=== PATIENT | male | born 1995 | race Caucasian/White ===

== ENCOUNTER 2022-11-08 15:56 | Emergency (ER) | payer BC, SELFPAY ==
[2022-11-08 16:00] VITALS: BP 112/70; PULSE 80; RESP 22; TEMP 37.1; O2SAT 97; BMI 27.3
--- NOTE | 2022-11-08 16:25 | ED.GENADULT ---
HPI - General Adult General Chief complaint: Back Injury/Pain Stated complaint: Severe left shoulder blade/neck pain, arm numbness Time Seen by Provider: 11/08/22 16:14 History of Present Illness HPI narrative: Pt c/o pinched nerve in left shoulder blade that radiates to neck and left arm that started one week ago. Pt states it has gotten progressively worse, and is now spasming today. Pt states he has numbness in left arm and fingers 27-year-old man presenting to the emergency department with complaint of a pinched nerve that he thinks is coming out of his shoulder blade maybe going to his neck and now he is having some numbness in his left arm and fingers. Appears to be spasming. Has been going on for about a week. Much worse in spasms today. No particular injury noted. No rash or redness. Significant other has been trying some massage. No actual weakness. No neurological disorders. Related Data Home Medications Medication Instructions Recorded Confirmed esomeprazole magnesium 40 mg 40 mg PO DAILY 11/08/22 11/08/22 capsule,delayed release famotidine 40 mg tablet 40 mg PO DAILY 11/08/22 11/08/22 fluticasone propionate 50 2 spray intranasal DAILY 11/08/22 11/08/22 mcg/actuation nasal spray,suspension lisdexamfetamine 20 mg capsule 20 mg PO DAILY 11/08/22 11/08/22 (Vyvanse) sumatriptan succinate 50 mg tablet 50 mg PO PRN 11/08/22 11/08/22 Allergies Allergy/AdvReac Type Severity Reaction Status Date / Time Sulfa (Sulfonamide Allergy Unknown Verified 11/08/22 16:07 Antibiotics) sulfamethoxazole Allergy Unknown Verified 11/08/22 16:07 [From Bactrim] trimethoprim [From Bactrim] Allergy Unknown Verified 11/08/22 16:07 Review of Systems Status of ROS: Reports: 6 or more systems reviewed and unremarkable except as noted in History and below [facility] Social History Smoking Status: Current every day smoker What tobacco products do you use: cigarettes Smoking packs per day: 0.5 Smoking cigarettes per day: 10.0 Years smoked: 10 Smoking pack-years: 5.00 Do you use any of these nicotine containing products: None Second hand tobacco smoke exposure: No How often do you have a drink containing alcohol: never AUDIT-C Alcohol total score: 0 Non-prescribed substance use: marijuana (any form) service: No Exam Narrative: Exam Narrative: Is pleasant. Clearly uncomfortable. Limited rotation of the neck actual to the right causes some discomfort in the left. Is very tense in the trapezial and periscapular musculature. no weakness. subjective tingliness. no sensory loss exactly. Well-perfused peripherally. No midline back or neck tenderness. Const: Vital Signs, click to edit/add: Vital Signs - 24 hr 11/08/22 16:00 Temperature 98.7 F Pulse Rate [Pulse Oximeter] 80 Respiratory Rate 22 Blood Pressure [Ri ght Upper Arm] 112/70 Pulse Oximetry 97 Oxygen Delivery Me thod Room Air Documenting provider has reviewed patient's vital signs: yes Course Vital Signs Vital signs: Initial Vital Signs Temperature 98.7 F 11/08/22 16:00 Temperature Source Temporal Artery Scan 11/08/22 16:00 Pulse Rate 80 11/08/22 16:00 Respiratory Rate 22 11/08/22 16:00 Blood Pressure 112/70 11/08/22 16:00 Blood Pressure Mean 84 11/08/22 16:00 Blood Pressure Position Sitting 11/08/22 16:00 Pulse Oximetry 97 11/08/22 16:00 Oxygen Delivery Method Room Air 11/08/22 16:00 Vital Signs Temperature 98.7 F 11/08/22 16:00 Pulse Rate 80 11/08/22 16:00 Respiratory Rate 22 11/08/22 16:00 Blood Pressure 112/70 11/08/22 16:00 Pulse Oximetry 97 11/08/22 16:00 Oxygen Delivery Method Room Air 11/08/22 16:00 Temperature 98.7 F 11/08/22 16:00 Pulse Rate 74 11/08/22 18:37 Respiratory Rate 22 11/08/22 16:00 Blood Pressure 129/81 11/08/22 18:37 Pulse Oximetry 98 11/08/22 18:37 Oxygen Delivery Method Room Air 11/08/22 18:37 Medical Decision Making MDM Narrative Medical decision making narrative: Due to degree of discomfort or will give 2 tabs of [place] in the emergency department. Was also given ibuprofen and prednisone the latter due to what may be a radicular issue from cervical spine. Possible facet inflammation/jumped facet, muscle spasm. No MRI availability at this time. Furthermore appropriate for outpatient I think. I did order a xray of the cervical spine looking for potential spurs or other osteoarthritic disease possibly secondary affect of mass that might be causing some of the symptoms. I did review these images. Radiology over-read as below Findings: Lateral view extends from the skull-base to C7. Odontoid view is suboptimal. No acute fracture or traumatic subluxation of the cervical spine. Vertebral body height and disc spaces are maintained. Normal alignment. No soft tissue swelling. Soft tissue heterogeneity in the neck on AP view is likely external to the patient. Visualized lung apices are clear. Impression: No acute fracture or traumatic subluxation of the cervical spine. On reassessment is overall improved. This may have been jumped/inflamed facet as well resulting in muscle spasm. The radicular symptoms are a little unusual generating concern of foraminal issue. And physical exam is a little different than typical where 1 might expect rotational movement to the same side to be markedly painful and limited in facet issue; somewhat contrary to findings here today. See patient discharge plan Discharge Plan Discharge Clinical Impression: Radiculopathy of arm, Cervicalgia Patient Disposition: Home w/ Parent or Adult Condition: Improved Additional Instructions: Stay well-hydrated. Can take up to 800 mg of ibuprofen or alternatively that might be up to 500 mg of naproxen 2 times daily. Both probably take with a little bit of food given your history. Can also take up to 1000 mg of acetaminophen which may be combined with either of the prior 2. Take the prednisone as 60 mg daily for 2 days then 40 mg daily for 4 days then 20 mg daily for 3 days. Prednisone, Percocet (as we are out of [place]), cyclobenzaprine from [facility]. Please call to schedule with primary care provider for follow-up sometime between 1-[address] now[address] Dr. Alberto does do injections if needed. Prescriptions: No Action Vyvanse 20 mg capsule 20 mg PO DAILY famotidine 40 mg tablet 40 mg PO DAILY esomeprazole magnesium 40 mg capsule,delayed release(DR/EC) 40 mg PO DAILY sumatriptan succinate 50 mg tablet 50 mg PO PRN fluticasone propionate 50 mcg/actuation spray,suspension 2 spray INTRANASAL DAILY Follow Up/Referrals: Provider,Not a Local [Primary Care Provider] - Stand Alone Forms: MyHealth Info Instructions
--- NOTE | 2022-11-08 16:49 | CRLHL7_ITS ---
For Patients: As a result of the Century Cures Act, medical imaging exams and procedure reports are released immediately into your electronic medical record. You may view this report before your referring provider. If you have questions, please contact your health care provider. Indication: Left arm radicular pain Technique: Three views of the cervical spine Comparison: None Findings: Lateral view extends from the skull-base to C7. Odontoid view is suboptimal. No acute fracture or traumatic subluxation of the cervical spine. Vertebral body height and disc spaces are maintained. Normal alignment. No soft tissue swelling. Soft tissue heterogeneity in the neck on AP view is likely external to the patient. Visualized lung apices are clear. Impression: No acute fracture or traumatic subluxation of the cervical spine. Dictated by João Roblero MD @ 11/08/2022 5:50:26 PM (Electronically Signed)
[2022-11-08] MEDS: HYDROCODONE-ACETAMIN 5-325 MG 1 TAB 2 TAB PO (17:04)
[2022-11-08] MEDS: IBUPROFEN 200 MG TABLET 600 MG PO (17:04)
[2022-11-08] MEDS: predniSONE 20 MG TABLET 80 MG PO (17:05)
[2022-11-08 18:37] VITALS: BP 129/81; PULSE 74; O2SAT 98
== END 2022-11-08 18:38 | disposition home or self-care (01) ==
PROVIDERS: Emergency Provider Family Medicine
DX: M54.12 Radiculopathy, cervical region (principal)
CPT/HCPCS: 72040; 99283; 99284; A9270; J7512

== ENCOUNTER 2022-12-12 10:49 | Emergency (ER) | payer BC, SELFPAY ==
[2022-12-12 10:54] VITALS: BP 123/82; PULSE 69; RESP 18; TEMP 36.2; O2SAT 96; BMI 26.5
--- NOTE | 2022-12-12 11:16 | CRLHL7_ITS ---
For Patients: As a result of the Century Cures Act, medical imaging exams and procedure reports are released immediately into your electronic medical record. You may view this report before your referring provider. If you have questions, please contact your health care provider. INDICATION: Headache. Trauma. TECHNIQUE: Non-contrast CT of the head is submitted. No comparisons. FINDINGS: The ventricles, sulci and gyri are of normal size, shape and contour. Midline structures are centrally located. No convincing evidence of intra- or extra-axial fluid collections. IMPRESSION: 1. No radiographic evidence of acute intracranial abnormalities. Dictated by Juwan Lacy MD @ 12/12/2022 12:38:48 PM Please note that all CT scans at this facility use dose modulation, iterative reconstruction, and/or weight-based dosing when appropriate to reduce radiation dose to as low as reasonably achievable. Dictated by: Juwan Lacy MD @ 12/12/2022 12:38:57 (Electronically Signed)
--- NOTE | 2022-12-12 11:17 | ED_ITS ---
HPI - General Adult General Time Seen by Provider: 11:17 Date Seen: 12/12/22 Chief complaint: Nausea/Vomiting Stated complaint: vomiting,cold sweats, loc hit head Time Seen by Provider: 12/12/22 11:15 Source: patient Mode of arrival: ambulatory Limitations: no limitations History of Present Illness HPI narrative: Patient is a 21-year-old male with no pertinent medical problems presenting to the emergency department for nausea and vomiting. About 3 hours ago started developing periumbilical pain with nausea and vomiting. He states he has been vomiting every 10 minutes. These also having sharp pain in his abdominal region. He has noted no previous abdominal surgeries. No have been other sick person in the also old who was also vomiting yesterday. Patient has not had any fevers but admits to chills. Last bowel movement was 2 today and was normal. Has not been the to drink anything when he tries he vomits it back up. His exam the calcium was vomiting caused him to pass out and fell off the couch landing on the hardwood for any his head. Denies a headache at this time. He does states he feels little lightheaded and dehydrated. Patient is an active marijuana user and says he smokes 1 to 2 times a day for the past several years. Denies chest pain, shortness of breath, numbness, weakness, dysuria, constipation, diarrhea. Related Data Home Medications Medication Instructions Recorded Confirmed esomeprazole magnesium 40 mg 40 mg PO DAILY 11/08/22 12/12/22 capsule,delayed release famotidine 40 mg tablet 40 mg PO DAILY 11/08/22 12/12/22 fluticasone propionate 50 2 spray intranasal DAILY 11/08/22 12/12/22 mcg/actuation nasal spray,suspension lisdexamfetamine 20 mg capsule 20 mg PO DAILY 11/08/22 12/12/22 (Vyvanse) sumatriptan succinate 50 mg tablet 50 mg PO PRN 11/08/22 11/08/22 Previous Rx's Medication Instructions Recorded ondansetron 4 mg disintegrating 4 mg PO Q6H #20 tabs 12/12/22 tablet Allergies Allergy/AdvReac Type Severity Reaction Status Date / Time Sulfa (Sulfonamide Allergy Unknown Verified 12/12/22 10:57 Antibiotics) sulfamethoxazole Allergy Unknown Verified 11/08/22 16:07 [From Bactrim] trimethoprim [From Bactrim] Allergy Unknown Verified 11/08/22 16:07 Review of Systems Status of ROS: Reports: 10 or more systems reviewed and unremarkable except as noted in History and below [facility] Social History Smoking Status: Current every day smoker What tobacco products do you use: cigarettes Smoking packs per day: 0.5 Smoking cigarettes per day: 10.0 Years smoked: 10 Smoking pack-years: 5.00 Do you use any of these nicotine containing products: None Second hand tobacco smoke exposure: No How often do you have a drink containing alcohol: never AUDIT-C Alcohol total score: 0 Non-prescribed substance use: marijuana (any form) service: No Exam Narrative: Exam Narrative: Const: Well-nourished, Well-developed, in moderate distress Eyes: PERRL, no conjunctival injection, and symmetrical lids ENMT: Atraumatic external nose and ears. Moist mucous membranes. Neck: Symmetric, trachea midline, No thyromegaly. CVS: RRR, No murmurs or gallops. Peripheral pulses 2+ and equal in all extremities RESP: Unlabored respiratory effort. Clear to auscultation bilaterally. GI: Diffuse abdominal tenderness, Nondistended, No rebound or guarding. MSK:Extremities w/o deformity, Normal Active ROM Skin: Warm, Dry. No rashes or lesions. Neuro: Normal Muscle tone, No focal neurological deficits. Psych: Awake, Alert, & Oriented x3. Appropriate mood and affect. Const: Vital Signs, click to edit/add: Vital Signs - 24 hr 12/12/22 10:54 Temperature 97.2 F L Pulse Rate [Right Pulse Oximeter] 69 Respiratory Rate 18 Blood Pressure [Ri ght Upper Arm] 123/82 Pulse Oximetry 96 Oxygen Delivery Me thod Room Air Course Vital Signs Vital signs: Initial Vital Signs Temperature 97.2 F L 12/12/22 10:54 Temperature Source Temporal Artery Scan 12/12/22 10:54 Pulse Rate 69 12/12/22 10:54 Respiratory Rate 18 12/12/22 10:54 Blood Pressure 123/82 12/12/22 10:54 Blood Pressure Mean 95 12/12/22 10:54 Blood Pressure Position Sitting 12/12/22 10:54 Pulse Oximetry 96 12/12/22 10:54 Oxygen Delivery Method Room Air 12/12/22 10:54 Vital Signs Temperature 97.2 F L 12/12/22 10:54 Pulse Rate 69 12/12/22 10:54 Respiratory Rate 18 12/12/22 10:54 Blood Pressure 123/82 12/12/22 10:54 Pulse Oximetry 96 12/12/22 10:54 Oxygen Delivery Method Room Air 12/12/22 10:54 Temperature 97.2 F L 12/12/22 10:54 Pulse Rate 69 12/12/22 10:54 Respiratory Rate 18 12/12/22 10:54 Blood Pressure 123/82 12/12/22 10:54 Pulse Oximetry 96 12/12/22 10:54 Oxygen Delivery Method Room Air 12/12/22 10:54 Medical Decision Making MDM Narrative Medical decision making narrative: Patient is an 7-year-old male presented emergency department for nausea and vomiting. Symptoms going on for past 3 hours and gradually worse. Has not been any to drink due to nausea. Is a current marijuana user. Does state the vomiting causing the past solid was then his onsite health coach surgeon folic of thick cotton hitting his head on the hardwood floor. Consider symptoms were cbc, CMP, lipase, EKG, troponin. Toradol given for pain and Zofran for nausea. 1 L of normal saline was ordered. Also checking for cholecystitis flu/RSV. Since he is had will order CT head noncontrast in this abdominal pain CT abdomen and pelvis with contrast. Lipase was ordered for care of the reagent is on back order an echo take a few days for the results to come back. There is also another reason why we ordered CT scan as we have no other great way to rule out pancreatitis at this time. Patient's symptoms do not improve with the Zofran. After he was given Haldol his nausea did improve he is not able to rest in bed. States symptoms are not completely gone. Troponin EKG showed no concerning findings. We did do a CT scan which showed no concerning abnormalities. Cbc and CMP showed no concerning abnormalities. COVID/flu/RSV is negative. Lipase is still pending at this time will take a few days to come back. CT scan did not show any signs of pancreatitis. Also unlikely to be cholecystitis. No signs of a small-bowel obstruction. Head CTs showed no concerning abnormalities. Continue Zosyn I sick family members at home patient likely has a viral infection which might have exacerbated his cannabinoid hyperemesis syndrome. He has never had issues with hyperemesis but he states he is aware of it. He did not smoke today but considering the Haldol did help with his nausea I believe there might be at least some association right now. He will be discharged home with Zofran. He is agreeable to this plan Lab Data Labs: Lab Results 12/12/22 12/12/22 Range/Units 11:40 Unknown WBC 4.29 L (4.50-11.00) K/uL RBC 4.91 (4.30-5.90) m/uL Hgb 14.6 (13.5-17.5) gm/dL Hct 43.3 (37.0-53.0) % MCV 88 (80-100) fL MCH 30 (26-34) pg MCHC 34 (32-36) gm/dL RDW Coeff of Lo 12.4 (11.5-15.5) % Plt Count 187 (140-440) K/uL Neut % (Auto) 49.1 (42.0-72.0) % Lymph % (Auto) 37.3 (20-44) % Mccone % (Auto) 11.7 H (0.0-11.0) % Eos % (Auto) 1.2 (0.0-7.0) % Baso % (Auto) 0.5 (0.0-3.0) % Neut # (Auto) 2.10 (1.7-7.0) K/uL Lymph # (Auto) 1.60 (0.90-2.90) K/uL Mccone # (Auto) 0.50 (0.00-0.90) K/UL Eos # (Auto) 0.10 (0.00-0.50) K/uL Baso # (Auto) 0.00 (0.00-0.30) K/uL Abs Immat Gran (auto) 0.00 (0.00-0.30) K/uL Imm/Tot Granulo (auto) 0.2 % Sodium 142 (135-149) mmol/L Potassium 3.8 (3.6-5.1) mmol/L Chloride 105 (96-114) mmol/L Carbon Dioxide 28 (20-32) mmol/L Anion Gap 9 (7-15) mEq/L BUN 20 (5-24) mg/dL Creatinine 0.9 (0.5-1.5) mg/dL Estimated Creat Clear 126.17 Estimated GFR 119 ml/min Glucose 121 H (60-115) mg/dL Calcium 10.0 (8.4-10.6) mg/dL Total Bilirubin 0.6 (0.1-1.5) mg/dL AST 30 (12-35) U/L ALT 36 (4-50) U/L Alkaline Phosphatase 73 (40-150) U/L Troponin I < 0.01 L (0.01-0.04) ng/mL Total Protein 7.3 (6.0-8.3) g/dL Albumin 4.5 (3.3-5.0) g/dL Urine Color Yellow (Yellow) Urine Appearance Cloudy A (Clear) Urine pH 8.5 (5.0-8.5) Ur Specific Deposit 1.020 (1.000-1.030) Urine Protein Trace A (Negative) Urine Glucose (UA) Negative (Negative) Urine Ketones 1+ A (Negative) Urine Blood Negative (Negative) Urine Nitrite Negative (Negative) Urine Bilirubin Negative (Negative) Urine Urobilinogen 0.2 (0.2-1.0) Ur Leukocyte Esterase Negative (Negative) Urine RBC 0-2 (0-2) Urine WBC 0-2 (0-5) Ur Squamous Epith Cells Few (None-Few) Amorphous Sediment Many A (None) Urine Bacteria None (None) SARS-CoV-2 (PCR) Negative SARS-CoV-2 (Negative) Influenza Type A (PCR) Negative PCR FLU A (Negative) Influenza Type B (PCR) Negative PCR FLU B (Negative) RSV (PCR) Negative PCR RSV (Negative) Imaging Data CT scan - abdomen: Radiologist's impression: INDICATION: Periumbilical pain. TECHNIQUE: Volumetric helical scanning of the abdomen and pelvis was performed with 89 cc of Isovue 370 contrast material IV. Coronal and sagittal reconstructions were obtained. COMPARISON: None. FINDINGS: There is no evidence of bowel obstruction or inflammation. A normal appendix noted. A small hiatal hernia is noted. The liver is normal in size, shape and attenuation. The bile ducts are within normal limits. The spleen, adrenal glands and pancreas are negative. In the left renal collecting system are stones measuring up to 7 mm and 2 mm. Right renal collecting system stones measuring up to 5 mm and 2 mm are also noted. Small low-attenuation parenchymal lesions of both kidneys are demonstrated tender consistent with cysts. No lymphadenopathy is evident. No free fluid is demonstrated. A small fat-containing umbilical hernia is noted. The prolapsed fat is normal in appearance. The prostate is negative. The lung bases are essentially clear, and heart size is normal. IMPRESSION: 1. Bowel unremarkable except for small hiatal hernia. 2. Small fat-containing umbilical hernia without evidence of inflammation. 3. Renal collecting system stones and small renal parenchymal cysts bilaterally. Please note that all CT scans at this facility use dose modulation, iterative reconstruction, and/or weight-based dosing when appropriate to reduce radiation dose to as low as reasonably achievable. Dictated by Heber Chavira MD @ 12/12/2022 12:59:[address] scan - head: Radiologist's impression: INDICATION: Headache. Trauma. TECHNIQUE: Non-contrast CT of the head is submitted. No comparisons. FINDINGS: The ventricles, sulci and gyri are of normal size, shape and contour. Midline structures are centrally located. No convincing evidence of intra- or extra-axial fluid collections. IMPRESSION: 1. No radiographic evidence of acute intracranial abnormalities. Dictated by Juwan Lacy MD @ 12/12/2022 12:38:48 PM Please note that all CT scans at this facility use dose modulation, iterative reconstruction, and/or weight-based dosing when appropriate to reduce radiation dose to as low as reasonably achievable. Dictated by: Juwan Lacy MD @ 12/12/2022 12:38:57 ECG Data Attestation: I personally reviewed and interpreted this ECG as follows: Prior ECG tracings: not available for review Interpretation: Sinus bradycardia rate 56 beats per minute, normal intervals, normal axis, no ST or T-wave abnormalities. Discharge Plan Discharge Clinical Impression: Viral gastritis Patient Disposition: Home, Self-Care Condition: Improved Instructions: Gastritis (DC) Additional Instructions: Follow-up with the primary care provider. Take Tylenol ibuprofen for abdominal pain. Use the Zofran as directed for nausea. I believe you have a viral gastritis. I believe that along with your marijuana use might be what is causing your nausea and vomiting. One of the reasons I believe this is because the 2nd medication gave you is used for cannabinoid hyperemesis syndrome and it did the best improving her symptoms. I recommend you hold off on using marijuana until viral symptoms passed. Activity Level: No Restrictions Discharge Diet: Regular Prescriptions: New ondansetron 4 mg tablet,disintegrating 4 mg PO Q6H Qty: 20 0RF No Action Vyvanse 20 mg capsule 20 mg PO DAILY famotidine 40 mg tablet 40 mg PO DAILY esomeprazole magnesium 40 mg capsule,delayed release(DR/EC) 40 mg PO DAILY sumatriptan succinate 50 mg tablet 50 mg PO PRN fluticasone propionate 50 mcg/actuation spray,suspension 2 spray INTRANASAL DAILY Follow Up/Referrals: Provider,Not a Local [Primary Care Provider] - Stand Alone Forms: [employer] Info Instructions
[2022-12-12] MEDS: KETOROLAC 15 MG/ML inj IVP (11:55)
[2022-12-12] MEDS: ONDANSETRON 2 MG/ML inj 4 MG IVP (11:56)
[2022-12-12] MEDS: LACTATED RINGERS 1000 ML 1,000 ML IV (11:56)
[2022-12-12 12:00] LABS: Basophils Percent Auto 0.5 % (0.0-3.0); Eosinophils Percent Auto 1.2 % (0.0-7.0); Hematocrit 43.3 % (37.0-53.0); Hemoglobin* 14.6 gm/dL (13.5-17.5); Immature Granulocytes Pct Auto 0.2 %; Lymphocytes Percent Auto 37.3 % (20-44); Mean Corpuscular HGB Conc 34 gm/dL (32-36); Mean Corpuscular Hemoglobin 30 pg (26-34); Mean Corpuscular Volume 88 fL (80-100); Monocytes Percent Auto 11.7 % (0.0-11.0); Neutrophils Percent Auto 49.1 % (42.0-72.0); Platelet Count* 187 K/uL (140-440); RDW Coefficient of Variation % 12.4 % (11.5-15.5); Red Blood Count 4.91 m/uL (4.30-5.90); White Blood Count* 4.29 K/uL (4.50-11.00)
[2022-12-12 12:04] LABS: Slide Review Reflex No
[2022-12-12 12:14] LABS: Albumin* 4.5 g/dL (3.3-5.0); Chloride* 105 mmol/L (96-114)
[2022-12-12 12:15] LABS: Potassium* 3.8 mmol/L (3.6-5.1); Sodium* 142 mmol/L (135-149)
[2022-12-12 12:17] LABS: Alkaline Phosphatase* 73 U/L (40-150); Anion Gap 9 mEq/L (7-15); Aspartate Amino Transferase* 30 U/L (12-35); Bilirubin Total* 0.6 mg/dL (0.1-1.5); Blood Urea Nitrogen* 20 mg/dL (5-24); Carbon Dioxide* 28 mmol/L (20-32); Creatinine* 0.9 mg/dL (0.5-1.5); Est. Creatinine Clearance* 126.17; Estimated Glomerular Filt Rate 119 ml/min; Total Protein* 7.3 g/dL (6.0-8.3)
[2022-12-12 12:18] LABS: Alanine Aminotransferase* 36 U/L (4-50); Glucose* 121 mg/dL (60-115)
[2022-12-12 12:32] LABS: Troponin I* < 0.01 ng/mL (0.01-0.04)
[2022-12-12 12:36] LABS: PCR FLU A Negative PCR FLU A (Negative); PCR FLU B Negative PCR FLU B (Negative); PCR RSV Negative PCR RSV (Negative)
[2022-12-12 12:38] LABS: SARS PCR* Negative SARS-CoV-2 (Negative)
[2022-12-12] MEDS: HALOPERIDOL 5 MG/ML INJ IV (12:51)
[2022-12-12 13:37] LABS: Appearance Urine Cloudy (Clear); Bilirubin Urine Negative (Negative); Blood Urine Negative (Negative); Color Urine Yellow (Yellow); Glucose Urine Negative (Negative); Ketones Urine 1+ (Negative); Leukocyte Esterase Urine Negative (Negative); Nitrite Urine Negative (Negative); Protein Urine Trace (Negative); Urobilinogen Urine 0.2 (0.2-1.0); pH Urine 8.5 (5.0-8.5)
[2022-12-12 13:48] LABS: Amorphous Sediment Urine Many; RBC Urine 0-2 (0-2); Squamous Epithelial Cell Urine Few (None-Few); WBC Urine 0-2 (0-5)
[2022-12-15 10:47] LABS: Lipase* 32 U/L (23-300)
== END 2022-12-12 15:01 | disposition home or self-care (01) ==
PROVIDERS: Emergency Provider Student in an Organized Health Care Education/Training Program
DX: A08.4 Viral intestinal infection, unspecified (principal)
CPT/HCPCS: 36415; 70450; 74177; 80053; 81003; 81015; 83690; 84484; 85025; 87631; 93005; 96374; 96375; 99283; 99284; 99285; J1630; J1885; J2405; J7120; Q9967

== ENCOUNTER 2023-07-30 18:20 | Emergency (ER) | payer OTHER, SELFPAY ==
[2023-07-30 18:25] VITALS: BP 116/82; PULSE 63; RESP 16; TEMP 36.4; O2SAT 96; BMI 25.8
--- NOTE | 2023-07-30 18:33 | ED.GENADULT ---
HPI - General Adult General Chief complaint: Abdominal Pain Stated complaint: abdominal pain, vomiting, weak Time Seen by Provider: 07/30/23 18:31 History of Present Illness HPI narrative: Patient presents to the emergency department complaining of nausea and vomiting which he believes to be related to his abdominal pain. Patient states he feels full and it gets worse with a deep breath. 27-year-old man presenting to the emergency department with complaint of cramping periumbilical abdominal pain beginning around 8 hours ago prior to eating and then subsequent repeated bouts of nausea. He notes that there has been some darker red blood in his vomitus. He notes a history of a stomach ulcer and a history of hiatal hernia and Simpson's esophagus last scoped he thinks 1-2 years ago. Has been on omeprazole and famotidine for quite some time. He has not had a fever. He says his stools are chronically dark. Pain is worse when he takes a deep breath. Abdomen feels ?full?. No fever. Family who accompanies him here today expresses concern over potential gallbladder or appendicitis. Mr. Salmon has been evaluated in this emergency department with vomiting and abdominal pain in the past with abdominal CT imaging showing renal stones. He does not complain of flank pain at this time no dizzy have any hematuria. No dysuria or frequency or urgency. No fever. Had typical bowel movement this morning. Does endorse that has been experiencing more anxiety lately particularly this past week. Has been treating with hydroxyzine. Is now out of his most effective antiemetic, Reglan, over the last week. He does admit to smoking marijuana 3 days ago; says that he has been tapering. Related Data Home Medications Medication Instructions Recorded Confirmed esomeprazole magnesium 40 mg 40 mg PO DAILY 11/08/22 12/15/22 capsule,delayed release famotidine 40 mg tablet 40 mg PO DAILY 11/08/22 12/15/22 lisdexamfetamine 20 mg capsule 20 mg PO DAILY 11/08/22 12/15/22 (Vyvanse) sumatriptan succinate 50 mg tablet 50 mg PO PRN 11/08/22 12/15/22 prochlorperazine maleate 10 mg 10 mg PO Q6H 12/15/22 12/15/22 tablet hydroxyzine HCl 25 mg tablet 25 mg PO BID PRN 06/01/23 06/01/23 hydroxyzine HCl 50 mg tablet mg PO 06/01/23 06/01/23 sertraline 100 mg tablet 100 mg PO DAILY 06/01/23 06/01/23 trazodone 50 mg tablet 100 mg PO QPM PRN 06/01/23 06/01/23 valacyclovir 500 mg tablet 500 mg PO QDAY 06/01/23 06/01/23 (Valtrex) Previous Rx's Medication Instructions Recorded ondansetron 4 mg disintegrating 4 mg PO Q6H #20 tabs 12/12/22 tablet Magic Mouthwash 10 ml PO TID-QID #120 mL 06/01/23 (Lidocaine/Benadryl/Maalox) 120 mL suspension metoclopramide HCl 10 mg tablet 10 mg PO Q6H PRN nausea and 07/30/23 (Reglan) vomiting #30 tabs Allergies Allergy/AdvReac Type Severity Reaction Status Date / Time Sulfa (Sulfonamide Allergy Unknown Verified 06/01/23 12:10 Antibiotics) sulfamethoxazole Allergy Unknown Verified 06/01/23 12:10 [From Bactrim] trimethoprim [From Bactrim] Allergy Unknown Verified 06/01/23 12:10 Review of Systems Status of ROS: Reports: 6 or more systems reviewed and unremarkable except as noted in History and below [facility] Social History Smoking Status: Current every day smoker What tobacco products do you use: cigarettes Smoking packs per day: 0.5 Smoking cigarettes per day: 10.0 Years smoked: 10 Smoking pack-years: 5.00 Do you use any of these nicotine containing products: None Second hand tobacco smoke exposure: No How often do you have a drink containing alcohol: never AUDIT-C Alcohol total score: 0 Non-prescribed substance use: marijuana (any form) service: No Exam Narrative: Exam Narrative: Brow is furrowed as if uncomfortable. He is breathing easily. Transitions in some pain as rolls over in the bed. Oropharynx is with cobblestoning in the far posterior oropharynx some erythema almost seems scraped abraded. Neck is supple without lymphadenopathy. Lungs are clear with breath sounds throughout. Heart is in a regular rate and rhythm. Abdomen with normoactive bowel sounds is flat and diffusely quite tender more so in the mid abdomen/periumbilical area as noted. Does not have discrete right upper quadrant or right lower quadrant tenderness. Certainly negative Vu's. Extremities are well perfused without edema. Const: Vital Signs, click to edit/add: Vital Signs - 24 hr 07/30/23 18:25 07/30/23 20:39 Temperature 97.6 F Pulse Rate [Left P ulse Oximeter] 63 71 Respiratory Rate 16 Blood Pressure [Le ft Upper Arm] 116/82 Pulse Oximetry 96 96 Oxygen Delivery Me thod Room Air Room Air Documenting provider has reviewed patient's vital signs: yes Course Vital Signs Vital signs: Initial Vital Signs Temperature 97.6 F 07/30/23 18:25 Temperature Source Temporal Artery Scan 07/30/23 18:25 Pulse Rate 63 07/30/23 18:25 Pulse Rhythm Regular 07/30/23 18:25 Pulse Strength 3+ Normal 07/30/23 18:25 Respiratory Rate 16 07/30/23 18:25 Blood Pressure 116/82 07/30/23 18:25 Blood Pressure Mean 93 07/30/23 18:25 Blood Pressure Position Sitting 07/30/23 18:25 Pulse Oximetry 96 07/30/23 18:25 Oxygen Delivery Method Room Air 07/30/23 18:25 Vital Signs Temperature 97.6 F 07/30/23 18:25 Pulse Rate 63 07/30/23 18:25 Respiratory Rate 16 07/30/23 18:25 Blood Pressure 116/82 07/30/23 18:25 Pulse Oximetry 96 07/30/23 18:25 Oxygen Delivery Method Room Air 07/30/23 18:25 Temperature 97.6 F 07/30/23 18:25 Pulse Rate 71 07/30/23 20:39 Respiratory Rate 16 07/30/23 18:25 Blood Pressure 116/82 07/30/23 18:25 Pulse Oximetry 96 07/30/23 20:39 Oxygen Delivery Method Room Air 07/30/23 20:39 Medications Administered Medications: Discontinued Medications Generic Name Dose Route Start Last Admin Trade Name Freq PRN Reason Stop Dose Admin Diphenhydramine HCl 12.5 mg 07/30/23 19:22 07/30/23 19:45 Diphenhydramine 50 Mg/Ml Inj IVP 07/30/23 19:23 12.5 mg ONCE ONE Administration Droperidol 1.25 mg 07/30/23 19:20 07/30/23 20:23 Droperidol 2.5 Mg/Ml Inj IV 07/30/23 19:21 Not Given ONCE ONE Droperidol 2.5 mg 07/30/23 19:20 07/30/23 19:46 Droperidol 2.5 Mg/Ml Inj IV 07/30/23 19:21 2.5 mg ONCE ONE Administration Sodium Chloride 1,000 mls @ 1,000 mls/hr 07/30/23 19:20 07/30/23 19:45 0.9 % Sodium Chloride 1000 Ml IV 07/30/23 20:19 1,000 mls/hr .Q1H ONE Administration Lidocaine/Aluminum/Magnesium/Simeth 30 ml 07/30/23 20:00 07/30/23 20:17 Gi Cocktail (Visc Lido/Antacid) 30 Ml PO 07/30/23 20:01 30 ml ONCE ONE Administration Medical Decision Making MDM Narrative Medical decision making narrative: I would suspect functional abdominal pain triggering nausea/vomiting. I am called back to the room after another episode of retching to inspect vomit. It is a yellow-amalia boyd vomitus with 1 mm specks that appear also reddish boyd quite symmetrical and of same sized floating. Look a little like Arturo seeds. Will request gastroccult. Clinical picture and exam would not suggest gallbladder disease nor appendicitis. Does not appear to be experiencing a bowel obstruction. Symptoms inconsistent with typical presentation of ureteral stones and colic. Pain is not discretely in the upper abdomen; I think less likely related to his historical ulcer. Initiating IV fluids. Apparently Reglan is particularly helpful. Will give droperidol for both pain and antiemetic properties. Diphenhydramine as well pre-treating droperidol. Pending labs and improvement may need to do imaging but I would hold on that at this time. Offer GI cocktail which he accepted. Overall is improved. He has been resting. No further episodes of emesis at this time. Pending oral challenge. Has tolerated ice chips at this point. Labs are unremarkable/reassuring. Gastroccult testing was negative Pending further oral challenge at change of shift. Please see patient discharge plan for further discussion. Lab Data Lab results reviewed: Yes I reviewed the patient's lab results Labs: Lab Results 07/30/23 07/30/23 Range/Units 19:30 19:49 WBC 8.59 (4.50-11.00) K/uL RBC 4.57 (4.30-5.90) m/uL Hgb 14.2 (13.5-17.5) gm/dL Hct 41.8 (37.0-53.0) % MCV 92 (80-100) fL MCH 31 (26-34) pg MCHC 34 (32-36) gm/dL RDW Coeff of Lo 12.2 (11.5-15.5) % Plt Count 201 (140-440) K/uL Neut % (Auto) 66.6 (42.0-72.0) % Lymph % (Auto) 28.8 (20-44) % Morgan % (Auto) 4.2 (0.0-11.0) % Eos % (Auto) 0.2 (0.0-7.0) % Baso % (Auto) 0.1 (0.0-3.0) % Neut # (Auto) 5.72 (1.7-7.0) K/uL Lymph # (Auto) 2.47 (0.90-2.90) K/uL Morgan # (Auto) 0.40 (0.00-0.90) K/UL Eos # (Auto) 0.02 (0.00-0.50) K/uL Baso # (Auto) 0.01 (0.00-0.30) K/uL Abs Immat Gran (auto) 0.01 (0.00-0.30) K/uL Imm/Tot Granulo (auto) 0.1 % Sodium 140 (135-149) mmol/L Potassium 4.0 (3.6-5.1) mmol/L Chloride 109 (96-114) mmol/L Carbon Dioxide 23 (20-32) mmol/L Anion Gap 8 (7-15) mEq/L BUN 18 (5-24) mg/dL Creatinine 0.9 (0.5-1.5) mg/dL Estimated Creat Clear 130.15 Estimated GFR 119 ml/min Glucose 107 (60-115) mg/dL Lactate 1.7 (0.5-1.9) mmol/L Calcium 9.7 (8.4-10.6) mg/dL Total Bilirubin 0.8 (0.1-1.5) mg/dL Direct Bilirubin 0.1 (0.0-0.5) mg/dL AST 23 (12-35) U/L ALT 26 (4-50) U/L Alkaline Phosphatase 97 (40-150) U/L C-Reactive Protein < 0.5 L (0.5-1.0) mg/dL Total Protein 8.1 (6.0-8.3) g/dL Albumin 5.3 H (3.3-5.0) g/dL Lipase 57 (23-300) U/L Gastric Fluid pH 4.0 Gastric Occult Blood Negative Discharge Plan Discharge Clinical Impression: Abdominal pain, Vomiting, Dehydration Patient Disposition: Home w/ Parent or Adult Condition: Improved Additional Instructions: Would recommend slow advance of diet over the next 36 hours. Diluted juices, soup broth, rice, toast, crackers. Have sent in more Reglan/metoclopramide for you. I do hope your stressors lighten soon. Prescriptions: New metoclopramide HCl [Reglan] 10 mg tablet 10 mg PO Q6H PRN (Reason: nausea and vomiting) Qty: 30 0RF No Action prochlorperazine maleate 10 mg tablet 10 mg PO Q6H valacyclovir [Valtrex] 500 mg tablet 500 mg PO QDAY hydroxyzine HCl 25 mg tablet 25 mg PO BID PRN hydroxyzine HCl 50 mg tablet PO trazodone 50 mg tablet 100 mg PO QPM PRN sertraline 100 mg tablet 100 mg PO DAILY Magic Mouthwash (Lidocaine/Benadryl/Maalox) 120 mL suspension 10 ml PO TID-QID Qty: 120 0RF Rx Instructions: Lidocaine Viscous 2 % mucosal solution 40 mL; Maalox 200 mg-200 mg-20 mg/5 mL oral suspension 40 mL; Benadryl 12.5 mg/5 mL oral elixir 40 mL; Per 120 mL SWISH AND SPIT. MAY COMPOUND IF FIRST PRODUCT IS NOT AVAILABLE. Vyvanse 20 mg capsule 20 mg PO DAILY famotidine 40 mg tablet 40 mg PO DAILY esomeprazole magnesium 40 mg capsule,delayed release(DR/EC) 40 mg PO DAILY sumatriptan succinate 50 mg tablet 50 mg PO PRN ondansetron 4 mg tablet,disintegrating 4 mg PO Q6H Qty: 20 0RF Follow Up/Referrals: Provider,Not a Local [Primary Care Provider] - Stand Alone Forms: [employer] Info Instructions
--- OUTSIDE RECORDS SUMMARY | 2023-07-30 19:27 | XMS_ITS | Encounter Summary ---
Author Name Unknown Organization [facility] Address [address] [place] [address] Care Team Providers Care Assistant Manager Retail Name Role Phone Jose Enrique Porras DO Primary Care Provider + Reason for Visit * Reason Comments APPOINTMENT REQUEST MIGRAINES VIDEO VISI T Encounter Details Date Type Department Care Team (Late st Contact Info) Description 05/21/2023 Telephone [facility] [address] [place] [address] Jose Enrique Porras DO [address] [place] [address] APPOINTMENT REQUEST (MIGRAINES VIDEO VISIT) Social History Tobacco Use Types Packs/Day Years Used Date Smoking Tobacco: Every Day Cigarettes Smokeless Tobacco: Never Alcohol Use Standard Drinks/Week Comments Not Currently 0 (1 standard drink = 0.6 oz pur e alcohol) sober x several months Humiliation, Afraid, Rape, and Kick questionnair e Answer Date Recorded Within the last year, have y ou been afraid of your partner or ex-partner? No 08/29/2019 Within the last year, have y ou been humiliated or emotionally abused in other ways by your partner or ex-partner? No Within the last year, have y ou been kicked, hit, slapped, or otherwise physically hurt by your partner or ex-partner? No 08/29/2019 Within the last year, have y ou been raped or forced to have any kind of sexual activity by your partner or ex-partner? No 08/29/2019 PHQ-2 Answer Date Recorded PHQ-2 Score 2 05/18/2022 Sex and Gender Information Value Date Recorded Sex Assigned at Not on file Gender Identity Not on file Sexual Orientation Not on file documented as of this encounter Nursing Notes * Migdalia Lobato, RN - 05/21/2023 11:28 AM CST Spoke with Tino. He will see Dr. Porras on Wednesday, 05/24 to discuss ongoing migraines. Appointment scheduled. WOOD FLOOR REFINISHER * Beth Hendrix - 05/21/2023 10:55 AM CST Reason for appointment: PT WOULD LIKE TO BE SEEN SOONER FOR MIGRAINS IF THIS COULD BE A VIDEO VISIT. PT CAN BE REACHED AT [phone] How long has patient had problem? N/A Date patient is requesting to be seen: SHANNAN If same day request, how soon could they arrive for appt: N/A Provider Patient Requesting?: GABI Is there another message for child/sibling/relative?NO WOOD FLOOR REFINISHER documented in this encounter Plan of Treatment Not on file documented as of this encounter Visit Diagnoses Not on filedocumented in this encounter Care Teams Assistant Manager Retail Relationship Specialty Start Date End Date Jose Enrique Porras DO [address] [place] [address] PCP - General 10/08/17 documented as of this encounter
--- OUTSIDE RECORDS SUMMARY | 2023-07-30 19:27 | XMS_ITS | Referral Summary ---
Author Name Unknown Organization [facility] Address [address] [place] [address] Care Team Providers Care Artificial Leather Calender Operator Name Role Phone Jose Enrique Porras Primary Care Provider + Allergies Active Allergy Reactions Criticality Noted Date Comments Sulfamethoxazole-Trimethoprim 2021 Sulfa Antibiotics 12/08/2021 Medications Medication Sig Dispensed Refills Start Date End Date Status amoxicillin-clavulana te (AUGMENTIN) 875-125 MG tablet Take 1 tablet by mouth 2 times daily 14 tablet 12/09/2021 Active Social History Tobacco Use Types Packs/Day Years Used Date Smoking Tobacco: Never Assessed Adolescent Education Answer Date Record ed Getting School Help Needed Not on file 01/09 Sex and Gender Information Value Date Recorded Sex Assigned at Not on file Gender Identity Not on file Sexual Orientation Not on file Last Filed Vital Signs Vital Sign Reading Time Taken Comments Blood Pressure 122/69 12/13/2021 12:36 AM CDT Pulse 80 12/13/2021 2:34 AM CDT Temperature 36.7 ??C (98.1 ??F) 12/13/2021 12:36 AM C DT Respiratory Rate 18 12/13/2021 12:36 AM CDT Oxygen Saturation 99% 12/13/2021 2:34 AM CDT Inhaled Oxygen Concentration - - Weight 74.8 kg (165 lb) 12/08/2021 10:07 PM CDT Height - - Body Mass Index - - Plan of Treatment Not on file Care Teams Artificial Leather Calender Operator Relationship Specialty Start Date End Date Jose Enrique Porras DO [address] [place] [address] PCP - General 12/09/21
--- OUTSIDE RECORDS SUMMARY | 2023-07-30 19:27 | XMS_ITS | Encounter Summary ---
Author Name Unknown Organization [facility] Address [address] [place] [address] Care Team Providers Care Joint Setter Name Role Phone Rm Ashley DO Primary Care Provider + Reason for Visit * Reason Comments Refill SUMAtriptan (IMITREX ) 50 MG tablet Encounter Details Date Type Department Care Team (Late st Contact Info) Description 05/21/2023 Refill [facility] [address] [facility] [place] [address] Rm Ashley DO [address] [place] [address] Refill (SUMAtriptan (IMITREX) 50 MG tablet) Social History Tobacco Use Types Packs/Day Years [...] as of this encounter Nursing Notes * Thi Shane RN - 05/24/2023 8:48 AM CST Renewed medication per medication refill standing order. Requested Prescriptions Pending Prescriptions Disp Refills SUMAtriptan (IMITREX) 50 MG tablet 9 Tablet 3 Sig: Take 1 Tablet (50 mg) by mouth as needed for Migraine. at onset of headache; may repeat one time in 2 hours if headache recurs. ING OPERATOR * Interface, Out Surescripts Prov Query - 05/21/2023 11:58 AM CST SUMAtriptan (IMITREX) 50 MG tablet Medication started: 06/19/2019 Last ordered by RM ASHLEY KOFI: 09/07/2022 (256 days ago) QTY: 9, Refills: 2, Sig: take 1 tablet by mouth as needed (changed) -> Unable to determine if sig has changed, review required. -> Refill x 12 months (until due for an office visit) -> Calculate the quantity and number of refills manually. Last qualifying visit: 02/24/2023 (with RM ASHLEY) Next scheduled visit: 05/24/2023 (with RM ASHLEY) [facility] [employer] Embedded Refills, Reference: [id number], 05/21/2023 11:58:54 AM MELTING OPERATORChema: PN Refill Centralized Services - Primary Care [[id number]] ([id number]) ING OPERATOR * Interface, Out Parakey Prov Query - 05/21/2023 10:53 AM CST The patient chart could not be locked at 05/21/2023 10:53 AM by T[facility] in order to process this refill request. Please try re-routing to attempt to retry processing through [facility]. ING OPERATOR * Beth Hendirx - 05/21/2023 10:48 AM CST Medication Refill Patient called for refill - routed refill request to central JAMES faustin Yes/No: Yes PLEASE SEND TO [facility] [place] (Delete this line and any line above that was answered No) Advise patient turn around time is 4 to 5 business days for standard and controlled refills. ING OPERATOR documented in this encounter Plan of Treatment Not on file documented as of this encounter Visit Diagnoses Diagnosis Other migraine without status migrainosus, not intractable documented in this encounter Care Teams Joint Setter Relationship Specialty Start Date End Date Rm Ashley DO [address] [facility] [place] [address] PCP - General 10/08/17 documented as of this encounter
--- OUTSIDE RECORDS SUMMARY | 2023-07-30 19:27 | XMS_ITS | Clinical Summary ---
Author Name Unknown Organization [facility] Address [address] [place] [address] Care Team Providers Care Portfolio Lead Name Role Phone Jose Enrique Porras Primary [...] Mass Index - - Plan of Treatment Health Maintenance Due Date Last Done Comments ADVANCE CARE PLANNING 1994 ANNUAL REVIEW OF HM ORDERS 1994 HIV SCREENING 2009 HEPATITIS C SCREENING 2012 HEPATITIS B IMMUNIZATION (1 of 3 - 19+ 3-dose series) 2013 DTAP/TDAP/TD IMMUNIZATION (2 - Td or Tdap) 12/15/2016 12/15/2006 YEARLY PREVENTIVE VISIT 04/01/2017 04/01/2016 COVID-19 Vaccine (2022- season) 2022 INFLUENZA VACCINE (#1) 2022 2, 04/02/2009, 01/24/2009, Additional history exists PHQ-2 (once per calendar year) 2023 Pneumococcal Vaccine: Pediatrics (0 to 5 Years) and At-Risk Patients (6 to 64 Years) Aged Out 03/16/2005 No longer eligible based on patient's age to complete this topic HPV IMMUNIZATION Aged Out No longer e ligible based on patient's age to complete this topic IPV IMMUNIZATION Aged Out No longer e ligible based on patient's age to complete this topic MENINGITIS IMMUNIZATION Aged Out No l onger eligible based on patient's age to complete this topic RSV MONOCLONAL ANTIBODY Aged Out No l onger eligible based on patient's age to complete this topic Care Teams Portfolio Lead Relationship Specialty Start Date End Date Jose Enrique Porras DO [address] [place] [address] PCP - General 12/09/21
--- OUTSIDE RECORDS SUMMARY | 2023-07-30 19:27 | XMS_ITS | Encounter Summary ---
Author Name Unknown Organization [facility] Address [address] [place] [address] Care Team Providers Care Fur Cleaner Name Role Phone Jose Enrique Porras DO Primary Care Provider + Reason for Visit * Reason Comments MEDICATION THERAPY MANAGEMENT Encounter Details Date Type Department Care Team (Latest Contact Info) Description 05/24/2023 10:00 AM [facility] [address] [place] [address] Joes Enrique Porras DO [address] [place] [address] Insomnia, unspecified type (Primary Dx); Chronic nonintractable headache, unspecified headache type; Encounter for medication review; ADHD, predominantly inattentive type (HRC); Other migraine without status migrainosus, not intractable Social History Tobacco Use Types Packs/Day Years [...] on file documented as of this encounter Progress Notes * Jose Enrique Porras, DO - 05/24/2023 10:00 AM CST Office Visit Note: HPI: Patient is a pleasant 27-year-old gentleman who I am seeing today for medication review via video visit. The patient is located within his home and I am here in clinic. He specifically wants to discuss his history of headaches. He believes his migraines are getting a little bit more severe. He says he was having roughly 1- 2 of them every couple of weeks. Imitrex is for the most part helpful but it will take a couple of hours. He usually says that the migraines areworse after night of poor sleep. Acknowledges sporadic photo and phonophobia. No significant aura. He has not currently taking any sleep aids. He remains compliant with his other medications. Says his moods and ADHD under appropriate control. Nursing Notes: Ayana Mcgovern LPN 05/24/23 1002 Signed Type of service: Video visit. Patient location was home. Provider location was [facility]. Patient gave verbal consent for telehealth appointment: YES Chief Complaint Patient presents with MEDICATION THERAPY MANAGEMENT Others present during visit: self Vitals: There were no vitals taken for this visit. 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 famotidine (PEPCID) 40 MG tablet Take 1 Tablet (40 mg) by mouth daily at bedtime. lisdexamfetamine (VYVANSE) 20 MG capsule Take 1 Capsule (20 mg) by mouth daily. metoclopramide (REGLAN) 10 MG tablet Take 1 Tablet (10 mg) by mouth every 8 hours as needed for Nausea or Vomiting (for nausea or vomiting). sertraline (ZOLOFT) 100 MG tablet Take 1 Tablet (100 mg) by mouth daily. SUMAtriptan (IMITREX) 50 MG tablet Take 1 Tablet (50 mg) by mouth as needed for Migraine. at onset of headache; may repeat one time in 2 hours if headache recurs. traZODone (DESYREL) 50 MG tablet Take 1-2 tabs PO qhs prn insomnia valACYclovir (VALTREX) 1 g tablet Take 1 Tablet (1,000 mg) by mouth daily. No current facility-administered medications for this visit. Physical Exam: There were no vitals taken for this visit. No acute distress. He answers questions appropriately. Patient appears at baseline. No results found for any visits on 05/24/23. Assessment/Plan Discussed the chronic nature of his headaches. Discussed differential including chronic tension headaches versus migraine headaches. No significant aura noted. Things are helped by sumatriptan. We discussed possible medication side effects specifically of his Vyvanse however he says this medications done so well for his ADHD does not want to change medications at this time. We discussed possible migraine prophylaxis versus sleep aids. It sounds like the majority of his symptoms stem around nights where he would get getting sleep. He does work and abnormal schedule and a lot of times at night based on his job. Discussed appropriate sleep hygiene. We will attempt trazodone at night. He is used this in the past but does not remember if it was terribly effective or not. We will give this a try once again. He will contact us next couple weeks and let us know how things are going. Patient requests a note because of missed work last Wednesday because of his headaches. He is okay to go back to work tonight. He also needs refill of his medications as described below. These will be continued as prescribed at this time. We discussed with any worsening symptoms to seek medical attention Karlo was seen today for medication therapy management. Diagnoses and all orders for this visit: Insomnia, unspecified type - traZODone (DESYREL) 50 MG tablet; Take 1-2 tabs PO qhs prn insomnia Chronic nonintractable headache, unspecified headache type Encounter for medication review ADHD, predominantly inattentive type (HRC) - lisdexamfetamine (VYVANSE) 20 MG capsule; Take 1 Capsule (20 mg) by mouth daily. Other migraine without status migrainosus, not intractable - SUMAtriptan (IMITREX) 50 MG tablet; Take 1 Tablet (50 mg) by mouth as needed for Migraine. at onset of headache; may repeat one time in 2 hours if headache recurs. Other orders - metoclopramide (REGLAN) 10 MG tablet; Take 1 Tablet (10 mg) by mouth every 8 hours as needed for Nausea or Vomiting (for nausea or vomiting). This note created using Split speech-recognition software and may contain unintended wordsubstitutions Devin Porras DO .................... 05/24/2023 1:04 PM ER UP documented in this encounter Nursing Notes * Ayana Mcgovern LPN - 05/24/2023 10:00 AM CST Type of service: Video visit. Patient location was home. Provider location was [facility]. Patient gave verbal consent for telehealth appointment: YES Chief Complaint Patient presents with MEDICATION THERAPY MANAGEMENT Others present during visit: self Vitals: There were no vitals taken for this visit. Tobacco History: Social History Tobacco Use Smoking Status Every Day Current packs/day: 0.50 Types: Cigarettes Smokeless Tobacco Never Allergies: Allergies Allergen Reactions Sulfa Antibiotics Unknown Sulfamethoxazole-Trimethoprim Unknown Trimethoprim Unknown Additional Information: None ER [facility] documented in this encounter Plan of Treatment Not on file documented as of this encounter Visit Diagnoses Diagnosis Insomnia, unspecified type- Primary Chronic nonintractable headache, unspecified headache type Encounter for medication review ADHD, predominantly inattentive type (HRC) Attention deficit disorder with hyperactivity Other migraine without status migrainosus, not intractable documented in this encounter Care Teams Fur Cleaner Relationship Specialty Start Date End Date Jose Enrique Porras DO [address] [place] [address] PCP - General 10/08/17 documented as of this encounter
--- OUTSIDE RECORDS SUMMARY | 2023-07-30 19:27 | XMS_ITS | Encounter Summary ---
Author Name Unknown Organization [facility] Address [address] [place] [address] Care Team Providers Care Oil Burner Installer Name Role Phone Jose Enrique Porras DO Primary Care Provider + Reason for Visit * Reason Comments Careplan: General WORK NOTE Encounter Details Date Type Department Care Team (Late st Contact Info) Description 05/21/2023 Telephone [facility] [address] [facility] [place] [address] Jose Enrique Porras DO [address] [place] [address] Careplan: General (WORK NOTE) Social History Tobacco Use Types Packs/Day Years [...] Notes * Migdalia Lobato, RN - 05/21/2023 11:29 AM CST Spoke with Tino. Notified him that we are unable to write him a note excusing him froj work as he was not evaluated today in clinic. Tino verbalizes understanding and does not have any other questions. COMMUNICATION OPERATOR * Beth Hendrix - 05/21/2023 10:51 AM CST Provider: GABI Reason for call: PT WOULD LIKE A NOTE FOR MISSING WORK FOR TODAY BECAUSE OF A MIGRAINE. PLEASE SENDON PATIENTS MYCHART. PT WOULD LIKE TO RETURN TO WORK ON WEDNESDAY. PT CAN BE REACHED AT [phone]. PT WOULD LIKE APPROVAL FOR A VIDEO VISIT, WE WILL SCHEDULE AN OV IF THAT COULD BE CHANGED TO A VIDEO VISIT AND PLEASE LET PT KNOW. COMMUNICATION OPERATOR documented in this encounter Plan of Treatment Not on file documented as of this encounter Visit Diagnoses Not on filedocumented in this encounter Care Teams Oil Burner Installer Relationship Specialty Start Date End Date Jose Enrique Porras DO [address] [place] [address] PCP - General 10/08/17 documented as of this encounter
--- OUTSIDE RECORDS SUMMARY | 2023-07-30 19:27 | XMS_ITS | Encounter Summary ---
Author Name Unknown Organization [facility] Address [address] [place] [address] Care Team Providers Care Pharmacy Associate Name Role Phone Rm Ashley DO Primary Care Provider + Reason for Visit * Reason Comments Refill famotidine (PEPCID) 40 MG tablet [Pharmacy Med Name: Famotidine 40 MG Oral Tablet] Encounter Details Date Type Department Care Team (Late st Contact Info) Description 04/21/2023 Refill [facility] [address] [place] [address] Rm Ashley DO [address] [place] [address] Refill (famotidine (PEPCID) 40 MG tablet [Pharmacy Med Name: Famotidine 40 MG Oral Tablet]) Social History Tobacco Use Types Packs/Day Years [...] as of this encounter Nursing Notes * Interface, Out Surescripts Prov Query - 04/21/2023 3:14 PM CST famotidine (PEPCID) 40 MG tablet [Pharmacy Med Name: Famotidine 40 MG Oral Tablet] Miscellaneous - 12 Month Visit 1 -> This medication was discontinued on 01/12/2023 by ESME MADDEN -> Refill x 12 months, qty: 90, refills: 3 (until due for an office visit) Last qualifying visit: 02/24/2023 (with RM ASHLEY) Next scheduled visit: None Last ordered by RM ASHLEY: 12/29/2022 (113 days ago) QTY: 90, Refills: 1, Sig: take 1 tablet (40 mg) by mouth daily at bedtime. (changed but equivalent) [employer] Embedded Refills, Reference: [id number], 04/21/2023 3:14:54 PM Genia MELCHORill Centralized Services - Primary Care [[id number]] ([id number]) ANICAL EQUIPMENT SALES ENGINEER documented in this encounter Plan of Treatment Not on file documented as of this encounter Visit Diagnoses Not on filedocumented in this encounter Care Teams Pharmacy Associate Relationship Specialty Start Date End Date Rm Ashley DO [address] [facility] [place] [address] PCP - General 10/08/17 documented as of this encounter
--- OUTSIDE RECORDS SUMMARY | 2023-07-30 19:27 | XMS_ITS | Clinical Summary ---
Author Name Unknown Organization [facility] Address [address] [place] [address] Care Team Providers Care Administrative Assistant Receptionist Name Role Phone Jose Enrique Porras Primary Care Provider + Source Comments You are receiving this document as you are listed as the primary care provider,follow-up provider, or the patient has been referred to you for consultation.This is in compliance with the Medicare and[facility]centive [facility],which states Providers who transition their patient to another setting of careor provider of care or refers their patient to another provider of care shouldprovide summary care record for each transition of care or referral. Recombine Allergies Active Allergy Reactions Criticality Noted Date Comments Sulfa Antibiotics Unknown 07/27/2015 Sulfamethoxazole-Trimethoprim Unknown 2017 Trimethoprim Unknown 08/22/2021 Medications Medication Sig Dispensed Refills Start Date End Date Status famotidine (PEPCID) 40 MG tablet Take 1 Tablet (40 mg) by mouth daily at bedtime. 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 90 Capsule 1 12/29/2022 Active valACYclovir (VALTREX) 1 g tabletIndications:G enital herpes simplex, unspecified site (HRC) Take 1 Tablet (1,000 mg) by mouth daily. 90 Tablet 3 01/12/2023 Active sertraline (ZOLOFT) 100 MG tabletIndications:G AD (generalized anxiety disorder) (HRC),Severe episode of recurrent major depressive disorder, 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) Take 1 Tablet (100 mg) by mouth daily. 90 Tablet 1 02/24/2023 4 Active traZODone (DESYREL) 50 MG tabletIndications:I nsomnia, unspecified type Take 1-2 tabs PO qhs prn insomnia 30 Tablet 1 05/24/2023 Active metoclopramide (REGLAN) 10 MG tablet Take 1 Tablet (10 mg) by mouth every 8 hours as needed for Nausea or Vomiting (for nausea or vomiting). 15 Tablet 1 05/24/2023 Active SUMAtriptan (IMITREX) 50 MG tabletIndications:O ther migraine without status migrainosus, not intractable Take 1 Tablet (50 mg) by mouth as needed for Migraine. at onset of headache; may repeat one time in 2 hours if headache recurs. 9 Tablet 3 05/24/2023 Active lisdexamfetamine (VYVANSE) 20 MG capsuleIndications: ADHD, predominantly inattentive type (HRC) Take 1 Capsule (20 mg) by mouth daily. 30 Capsule 07/28/2023 4 Active lisdexamfetamine (VYVANSE) 20 MG capsuleIndications: ADHD, predominantly inattentive type (HRC) Take 1 Capsule (20 mg) by mouth daily. 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 Overview: adderall 25 mg per day Hiatal hernia with GERD 04/01/2016 Resolved Problems Problem Noted Date Diagnosed Date Resolved Date Hematemesis 08/29/2019 10/23/2019 Major depression 08/29/2019 10/23/2019 Genital herpes simplex 08/27/201709/03 Herpes simplex infection of penis 08/27/2017 08/27/2017 Asperger syndrome 07/15/2016 02/25/2018 Insomnia 04/01/2016 02/25/2018 Tobacco use disorder 04/01/2016 021 Encounters Date Type Department Care Team Description 07/27/2023 Refill [facility] [address] [place] [phone] Jose Enrique Porras DO Refill (lisdexamfetamine (VYVANSE) 20 MG capsule) 05/24/2023 10:00 AM NURSING SUPPORT WORKER Telemedicine [facility] [address] [place] [phone] Jose Enrique Porras DO Insomnia, unspecified type (Primary Dx); Chronic nonintractable headache, unspecified headache type; Encounter for medication review; ADHD, predominantly inattentive type (HRC); Other migraine without status migrainosus, not intractable 05/21/2023 Telephone [facility] [address] [place] [phone] Jose Enrique Porras DO APPOINTMENT REQUEST (MIGRAINES VIDEO VISIT) 05/21/2023 Telephone [facility] [address] [place] [phone] Jose Enrique Porras DO Careplan: General (WORK NOTE) 05/21/2023 Refill [facility] [address] [place] [phone] Jose Enrique Porras DO Refill (SUMAtriptan (IMITREX) 50 MG tablet) from Last 3 Months Immunizations Name Administration Dates Next Due Flu Vac (3+ yrs) 12/31/2011, 8,03/24/2007,05/28/2006, Flu Vac (6-35 mo) 01/24/2009 Flu Vac Preserv Free (3+yrs) 01/24/2009 Influenza [id number] 04/02/2009 PPSV23 (Pneumovax) 03/16/2005 Tdap 12/15/2006 Family History Medical History Relation Name Comments Good Health Father Good Health Mother Relation Name Status Comments Father Mother Social History Tobacco Use Types Packs/Day Years Used Date Smoking Tobacco: Every Day Cigarettes Smokeless Tobacco: Never Tobacco Cessation:Ready to Q uit: Not Asked; Counseling Given: Not Answered Alcohol Use Standard Drinks/Week Comments Not Currently [...] Sign Reading Time Taken Comments Blood Pressure 125/69 01/13/2023 1:59 PM CDT Pulse 85 01/13/2023 1:59 PM CDT Temperature 36.8 ??C (98.3 ??F) 01/14/2023 1:33 PM CD T Respiratory Rate 18 01/13/2023 1:59 PM CDT Oxygen Saturation 98% 01/13/2023 1:59 PM CDT Inhaled Oxygen Concentration - - Weight 83.9 kg (185 lb) 01/14/2023 1:33 PM CDT Height 177.8 cm (5' 10) 12/25/2022 10:05 AM CDT Body Mass Index 26.54 12/25/2022 10:05 AM CDT Plan of Treatment Health Maintenance Due Date Last Done Comments Hep C Screening (Preventive Services) 1994 Pneumococcal (2 - PCV) 03/16/2006 03/16/2005 HepB (1) 2013 DTaP/Tdap/Td (2 - Tdap) 12/15/2016 12/15/2006 Adult Preventive Visit 04/01/2018 04/01/2016 COVID-19 Vaccine (1 - season) 2022 Influenza (#1) 2022 12/31/2011, 11/2008, 01/24/2009, Additional history exists Zoster/Shingles (1 of 2) 2044 HIV Screening (Preventive Services) Completed 10/08/2020, 08/20/2017 HPV Vaccine Aged Out No longer eligi ble based on patient's age to complete this topic HepA Aged Out No longer eligi ble based on patient's age to complete this topic Hib Aged Out No longer eligi ble based on patient's age to complete this topic IPV (Polio) Aged Out No longer eligi ble based on patient's age to complete this topic MCV4 Aged Out No longer eligi ble based on patient's age to complete this topic Procedures Procedure Name Priority Date/Time Associated Diagnosis Comments HIV 1/2 AG/AB 4TH GEN Routine 10/08/2020 5:13 PM CDT Screening for STDs (sexually transmitted diseases) from Last 3 Months or Most Recently Relevant to Health Maintenance Results * HIV 1/2 Ag/Ab 4th Generation (10/08/2020 5:13 PM CDT) HIV 1/2 Antigen/Antib alex (4th generation) Negative (Non Reactive) Negative (Non Reactive) 10/09/2020 12:23 AM CDT [facility] Comment:HIV-1 p24 Antigen an d HIV-1/HIV-2 Antibody not detected Blood Venipuncture / Unknown 10/08/2020 5:13 PM CDT 10/08/2020 5:13 PM CDT Emiliano Humphries LAB_1 [facility] [id number] [place] [id number], [facility] from Last 3 Months or Most Recently Relevant to Health Maintenance Advance Directives * Full Code (Latest Code Status on File) Date Activated Date Inactivated Comments 08/29/2019 4:38 AM 08/29/2019 4:49 PM * Full Code Date Activated Date Inactivated Comments 05/02/2018 10:15 AM 05/01/2018 6:00 PM * Full Code Date Activated Date Inactivated Comments 05/02/2018 10:15 AM 05/02/2018 6:40 AM * Full Code Date Activated Date Inactivated Comments 02/24/2018 8:45 PM 02/23/2018 6:00 PM * Full Code Date Activated Date Inactivated Comments 02/24/2018 8:45 PM 02/28/2018 7:05 AM Care Teams Administrative Assistant Receptionist Relationship Specialty Start Date End Date Jose Enrique Porras DO [address] [place] [id number] PCP - General 10/08/17
--- OUTSIDE RECORDS SUMMARY | 2023-07-30 19:27 | XMS_ITS | Encounter Summary ---
Author Name Unknown Organization [facility] Address [address] [place] [address] Care Team Providers Care Biochemistry Technologist Name Role Phone Rm Ashley DO Primary Care Provider + Reason for Visit * Reason Comments Refill lisdexamfetamine (VY VANSE) 20 MG capsule Encounter Details Date Type Department Care Team (Late st Contact Info) Description 07/27/2023 Refill [facility] [address] [place] [phone] Rm Ashley DO [address] [place] [address] Refill (lisdexamfetamine (VYVANSE) 20 MG capsule) Social History Tobacco Use Types Packs/Day Years [...] as of this encounter Nursing Notes * Wilbur Munizreneedivinaterencekeri Xrwcomm - 07/27/2023 12:17 PM CDT lisdexamfetamine (VYVANSE) 20 MG capsule Medication started: 07/05/2019 Last ordered by RM ASHLEY: 05/24/2023 (64 days ago) QTY: 30, Refills: 0, Sig: take 1 capsule (20 mg) by mouth daily. (unchanged) -> The most recent order on 06/23/2023. -> Medication cannot be delegated. Last qualifying visit: 05/24/2023 (with RM ASHLEY) Next scheduled visit: [facility] Embedded Refills, Reference: [id number], 07/27/2023 12:17:11 PM COREYT, Genia Bowlesill [facility]ized [facility] - Primary Care [[id number]] ([id number]) * Jocelynn Muniz Xrwcomm - 07/27/2023 12:17 PM CDT No Careplan note found by [facility]. * Cata Masters - 07/27/2023 12:16 PM CDT Medication Refill Patient called for refill - routed refill request to central vocal performer documented in this encounter Plan of Treatment Not on file documented as of this encounter Visit Diagnoses Diagnosis ADHD, predominantly inattentive type (HRC) Attention deficit disorder with hyperactivity documented in this encounter Care Teams Biochemistry Technologist Relationship Specialty Start Date End Date Rm Ashley DO [address] [place] [id number] PCP - General 10/08/17 documented as of this encounter
[2023-07-30 19:38] LABS: Lactate* 1.7 mmol/L (0.5-1.9)
[2023-07-30 19:40] LABS: Basophils Percent Auto 0.1 % (0.0-3.0); Eosinophils Percent Auto 0.2 % (0.0-7.0); Hematocrit 41.8 % (37.0-53.0); Hemoglobin* 14.2 gm/dL (13.5-17.5); Immature Granulocytes Pct Auto 0.1 %; Lymphocytes Percent Auto 28.8 % (20-44); Mean Corpuscular HGB Conc 34 gm/dL (32-36); Mean Corpuscular Hemoglobin 31 pg (26-34); Mean Corpuscular Volume 92 fL (80-100); Monocytes Percent Auto 4.2 % (0.0-11.0); Neutrophils Percent Auto 66.6 % (42.0-72.0); Platelet Count* 201 K/uL (140-440); RDW Coefficient of Variation % 12.2 % (11.5-15.5); Red Blood Count 4.57 m/uL (4.30-5.90); White Blood Count* 8.59 K/uL (4.50-11.00)
[2023-07-30 19:41] LABS: Basophils Absolute Auto 0.01 K/uL (0.00-0.30); Eosinophils Absolute Auto 0.02 K/uL (0.00-0.50); Immature Granulocytes Abs Auto 0.01 K/uL (0.00-0.30); Lymphocytes Absolute Auto 2.47 K/uL (0.90-2.90); Neutrophils Absolute Auto 5.72 K/uL (1.7-7.0); Slide Review Reflex No
[2023-07-30] MEDS: 0.9 % SODIUM CHLORIDE 1000 ml 1,000 ML IV (19:45)
[2023-07-30] MEDS: diphenhydrAMINE 50 MG/ML inj 12.5 MG IVP (19:45)
[2023-07-30] MEDS: droperidoL 2.5 MG/ML inj IV (19:46)
[2023-07-30 19:54] LABS: Chloride* 109 mmol/L (96-114)
[2023-07-30 19:55] LABS: Sodium* 140 mmol/L (135-149)
[2023-07-30 19:56] LABS: Albumin* 5.3 g/dL (3.3-5.0)
[2023-07-30 19:57] LABS: Creatinine* 0.9 mg/dL (0.5-1.5); Est. Creatinine Clearance* 130.15; Estimated Glomerular Filt Rate 119 ml/min
[2023-07-30 19:58] LABS: Anion Gap 8 mEq/L (7-15); Blood Urea Nitrogen* 18 mg/dL (5-24); Calcium* 9.7 mg/dL (8.4-10.6); Carbon Dioxide* 23 mmol/L (20-32); Glucose* 107 mg/dL (60-115)
[2023-07-30 19:59] LABS: Alanine Aminotransferase* 26 U/L (4-50); Alkaline Phosphatase* 97 U/L (40-150); Aspartate Amino Transferase* 23 U/L (12-35); Bilirubin Direct* 0.1 mg/dL (0.0-0.5); Bilirubin Total* 0.8 mg/dL (0.1-1.5); Lipase* 57 U/L (23-300); Total Protein* 8.1 g/dL (6.0-8.3)
[2023-07-30 20:01] LABS: C Reactive Protein* < 0.5 mg/dL (0.5-1.0)
[2023-07-30] MEDS: GI COCKTAIL (VISC LIDO/ANTACID) 30 ML PO (20:17)
[2023-07-30 20:28] LABS: Gastric Occult Blood* Negative
[2023-07-30 20:30] VITALS: BP 97/63; O2SAT 96
[2023-07-30 20:39] VITALS: PULSE 71; O2SAT 96
[2023-07-30 21:00] VITALS: BP 108/78; O2SAT 98
[2023-07-30 21:39] VITALS: BP 100/60; O2SAT 98
== END 2023-07-30 21:45 | disposition home or self-care (01) ==
PROVIDERS: Emergency Provider Family Medicine
DX: R10.9 Unspecified abdominal pain (principal); R11.10 Vomiting, unspecified; E86.0 Dehydration
CPT/HCPCS: 36415; 80048; 80076; 83605; 83690; 83986; 85025; 86140; 96361; 96374; 96375; 99284; A9270; J1200; J1790; J7030

== ENCOUNTER 2024-01-09 15:30 | Emergency (ER) | payer OTHER, SELFPAY ==
[2024-01-09 15:35] VITALS: BP 115/69; PULSE 58; RESP 18; TEMP 36.5; O2SAT 95; BMI 26.5
--- NOTE | 2024-01-09 15:49 | ED.GENADULT ---
HPI - General Adult General Date Seen: 01/09/24 Chief complaint: Nausea/Vomiting Stated complaint: vomiting, chest pressure Time Seen by Provider: 01/09/24 15:41 History of Present Illness HPI narrative: 28-year-old male presenting to the ER today with his mother. He has had 4 days of nausea and vomiting. He has had this off and on now for several weeks. He has previous visits to the ER on 07/30/2023 and 12/12/2022 for nausea and vomiting and abdominal pain. CT scan abdomen/pelvis 12/12/2022 IMPRESSION: 1. Bowel unremarkable except for small hiatal hernia. 2. Small fat-containing umbilical hernia without evidence of inflammation. 3. Renal collecting system stones and small renal parenchymal cysts bilaterally. Labs 12/12/2022 WBC 4.2, hemoglobin 14.6, platelet 187 Sodium 142, potassium 3.8,, bilirubin 0.6, AST 30, ALT 36, lipase 32 Labs 07/30/2023 WBC 8.6, hemoglobin 14.2, platelet count 201 Sodium 140, potassium 4.0 chloride 109, bicarb 23, anion gap 8, BUN 18, creatinine 0.9, glucose 107, venous lactic 1.7, AST 23, ALT 26, bilirubin 0.1, lipase 57 He presents to the ER today with his girlfriend. They report that he has been having trouble with epigastric abdominal pain and nausea and vomiting off and on for least 4 weeks or so. It sounds like these come in episodes that last a few days in the get better for a few days. No clear pattern. 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 He is on ranitidine and a PPI for that. He previously had GI care through [facility] but his doctor moved to [place] and he says that he needs to reestablish with a new provider at [facility]. His current episode of nausea and vomiting and pain began about 4 days ago. It started with primarily epigastric pain but is now fairly diffuse abdominal pain. He has had multiple episodes vomiting. Initially was nonbilious and nonbloody. He for the past couple of days is vomiting has been darker and sometimes tastes like the urine. Today he noticed some blood in his vomit. He says he had a vomit that was probably more than 500 mL in volume with some bloody material in it and otherwise kind of a dark color. He can not really characterize whether was dark black, dark brown, dark red. He has not had any bowel movement for couple of days. No diarrhea. No BM for 2 days, but Three days ago his bowel movement was normal and brown. He has had decreased urine output because of dehydration but otherwise no urinary symptoms. Because of his vomiting he is getting some burning chest pain in the substernal region of his chest. Related Data Home Medications ?Medication ?Instructions ?Recorded ?Confirmed esomeprazole magnesium 40 mg 40 mg PO DAILY 11/08/22 01/09/24 capsule,delayed release famotidine 40 mg tablet 40 mg PO DAILY 11/08/22 01/09/24 lisdexamfetamine 20 mg capsule 20 mg PO DAILY 11/08/22 01/09/24 (Vyvanse) sumatriptan succinate 50 mg tablet 50 mg PO PRN 11/08/22 01/09/24 prochlorperazine maleate 10 mg 10 mg PO Q6H 12/15/22 01/09/24 tablet hydroxyzine HCl 25 mg tablet 25 mg PO BID PRN 06/01/23 06/01/23 hydroxyzine HCl 50 mg tablet mg PO 06/01/23 06/01/23 sertraline 100 mg tablet 100 mg PO DAILY 06/01/23 01/09/24 trazodone 50 mg tablet 100 mg PO QPM PRN 06/01/23 01/09/24 valacyclovir 500 mg tablet 500 mg PO QDAY 06/01/23 01/09/24 (Valtrex) Previous Rx's ?Medication ?Instructions ?Recorded metoclopramide HCl 10 mg tablet 10 mg PO Q6H PRN nausea and 07/30/23 (Reglan) vomiting #30 tabs prochlorperazine maleate 10 mg 10 mg PO TID PRN #10 tabs 01/09/24 tablet (Compazine) sucralfate 100 mg/mL oral 10 ml PO BID PRN #300 mL 01/09/24 suspension (Carafate) Allergies Allergy/AdvReac Type Severity Reaction Status Date / Time Sulfa (Sulfonamide Allergy Unknown Verified 01/09/24 16:45 Antibiotics) sulfamethoxazole Allergy Unknown Verified 01/09/24 16:45 [From Bactrim] trimethoprim [From Bactrim] Allergy Unknown Verified 01/09/24 16:45 [facility] Social History Smoking Status: Current every day smoker What tobacco products do you use: cigarettes Smoking packs per day: 0.5 Smoking cigarettes per day: 10.0 Years smoked: 10 Smoking pack-years: 5.00 Do you use any of these nicotine containing products: None Second hand tobacco smoke exposure: No How often do you have a drink containing alcohol: never AUDIT-C Alcohol total score: 0 Non-prescribed substance use: marijuana (any form) service: No Exam Narrative: Exam Narrative: Constitutional: Appears well-developed and well-nourished. Alert. Conversant. Non toxic. HENT: Head: Atraumatic. Nose: Nose normal. Mouth/Throat: Oral mucosa is clear but dry, not desiccated or cracked. no trismus. Pharynx normal. Tonsils symmetric. No tonsillar enlargement, erythema, or exudate. Eyes: Conjunctivae normal. EOM normal. Pupils equal, round, and reactive to light. No scleral icterus. Neck: Normal range of motion. Neck supple. No tracheal deviation present. Cardiovascular: Normal rate, regular rhythm. No gallop. No friction rub. No murmur heard. Symmetric radial artery pulses Pulmonary/Chest: Effort normal. No stridor. No respiratory distress. No wheezes. No rales. No rhonchi . No tenderness. No chest wall crepitus Abdominal: Soft. Bowel sounds normal. No distension. Not tympanic. No mass. Diffuse tenderness, seemingly maximum in the epigastrium.. No rebound. No guarding. No pulsatile mass. Musculoskeletal: RUE: Normal range of motion. No tenderness. No deformity LUE: Normal range of motion. No tenderness. No deformity RLE: Normal range of motion. No edema. No tenderness. No deformity LLE: Normal range of motion. No edema. No tenderness. No deformity Neurological: Alert and oriented to person, place, and time. Normal strength. CN II-VII intact. No sensory deficit. GCS eye subscore is 4. GCS verbal subscore is 5. GCS motor subscore is 6. Normal coordination Skin: Skin is warm and dry. No rash noted. No pallor. Normal capillary refill. Psychiatric: Normal mood. Normal affect. Const: Vital Signs, click to edit/add: Vital Signs - 24 hr 01/09/24 15:35 01/09/24 17:11 01/09/24 18:30 Temperature 97.7 F Pulse Rate [Pulse Oximeter] 58 L 74 60 Respiratory Rate 18 16 16 Blood Pressure [Ri ght Upper Arm] 115/69 120/78 133/86 Pulse Oximetry 95 97 97 Oxygen Delivery Me thod Room Air Room Air Room Air Course Course ED Course: Recheck-reports no improvement after 1st round of meds. Will order additional meds. Reevaluation(s) Reevaluation #1: Recheck-still has some pain. Mild nausea. Slightly improved after meds but not resolved. Reevaluation #2: Recheck-has been able to keep down perhaps 6 oz of water from a cup. Still nauseous but has not had any vomiting now for a couple of hours. Reevaluation #3: Recheck-discussed options with the patient and his girlfriend. Could consider discharge home with additional nausea meds. Or if he has has intractable nausea, we could justify hospitalization overnight for IV fluids. At this point labs are reassuring. Not in imminent jeopardy of going into renal failure from dehydration. He has a little bit on the fence about going home because he is afraid his nausea might come back. We discussed this. I agree that it is possible that his nausea could nausea worsened again. Overall we decided to try a course at home. He will return to the ER right away if he has worsening or uncontrolled nausea vomiting or other symptoms. Otherwise if not improved within 24 hours he will recheck with his doctor. He will also call his provider is at [facility] to arrange follow-up. He had previously been seeing a doctor at [facility] for his Simpson's esophagus, but has not seen them for a couple of years now.. Vital Signs Vital signs: Initial Vital Signs Temperature 97.7 F 01/09/24 15:35 Temperature Source Temporal Artery Scan 01/09/24 15:35 Pulse Rate 58 L 01/09/24 15:35 Respiratory Rate 18 01/09/24 15:35 Blood Pressure 115/69 01/09/24 15:35 Blood Pressure Mean 84 01/09/24 15:35 Pulse Oximetry 95 01/09/24 15:35 Oxygen Delivery Method Room Air 01/09/24 15:35 Vital Signs Temperature 97.7 F 01/09/24 15:35 Pulse Rate 58 L 01/09/24 15:35 Respiratory Rate 18 01/09/24 15:35 Blood Pressure 115/69 01/09/24 15:35 Pulse Oximetry 95 01/09/24 15:35 Oxygen Delivery Method Room Air 01/09/24 15:35 Temperature 97.7 F 01/09/24 15:35 Pulse Rate 60 01/09/24 18:30 Respiratory Rate 16 01/09/24 18:30 Blood Pressure 133/86 01/09/24 18:30 Pulse Oximetry 97 01/09/24 18:30 Oxygen Delivery Method Room Air 01/09/24 18:30 Medications Administered Medications: Discontinued Medications Generic Name Dose Route Start Last Admin Trade Name Freq PRN Reason Stop Dose Admin Diphenhydramine HCl 25 mg 01/09/24 16:11 01/09/24 17:06 Diphenhydramine 50 Mg/Ml Inj IVP 01/09/24 16:12 25 mg ONCE ONE Administration Droperidol 2.5 mg 01/09/24 18:02 01/09/24 18:10 Droperidol 2.5 Mg/Ml Inj IV 01/09/24 18:03 2.5 mg ONCE ONE Administration Ketorolac Tromethamine 15 mg 01/09/24 16:11 01/09/24 17:03 Ketorolac 15 Mg/Ml Inj IVP 01/09/24 16:12 15 mg ONCE ONE Administration Lactated Ringer's 1,000 ml 01/09/24 16:13 01/09/24 17:03 Lactated Ringers 1000 Ml IV 01/09/24 16:14 1,000 ml ONCE ONE Administration Metoclopramide HCl 10 mg 01/09/24 16:11 01/09/24 17:05 Metoclopramide Hcl 5 Mg/Ml Inj IVP 01/09/24 16:12 10 mg ONCE ONE Administration Pantoprazole Sodium 40 mg 01/09/24 16:11 01/09/24 17:09 Pantoprazole Sodium 40 Mg Inj IVP 01/09/24 16:12 40 mg ONCE ONE Administration Medical Decision Making MDM Narrative Medical decision making narrative: Presented to the Emergency Department with 4 day history of repetitive nausea and vomiting, generalized abdominal pain. The differential diagnosis of abdominal pain includes: Appendicitis, Bowel Obstruction, Ulcer, Ischemia, Cholecystitis, Diverticulitis, Pancreatitis, UTI, kidney stone, Enteritis/Colitis, amongst many other etiologies. Also consider possible gastritis, peptic ulcer disease, gastroparesis, cannabis hyperemesis syndrome, cyclic vomiting. Laboratory testing does not reveal a cause for the patient's pain. CT Imaging is noted to be normal. The exact etiology of the abdominal pain is not clear at this time. No life threatening cause or need for emergent surgery or hospital admission is detected today. The patient was advised that if symptoms do not completely resolve within another 24 hours re-evaluation with primary care or return to the ED is indicated. The patient also understands that if they worsen, they should return to the ER right away. I discussed the uncertainty about the diagnosis and answered the patient's questions. Abdominal pain return precautions discussed. Will add prescription for Compazine to help with nausea. He has not had much success with Zofran and Reglan at home recently. Also will add Carafate. He will continue on his PPI and H2 davonte for stomach acid. Return precautions reviewed. Lab Data Labs: Lab Results 01/09/24 Range/Units 16:25 WBC 11.76 H (4.50-11.00) K/uL RBC 4.57 (4.30-5.90) m/uL Hgb 14.2 (13.5-17.5) gm/dL Hct 42.0 (37.0-53.0) % MCV 92 (80-100) fL MCH 31 (26-34) pg MCHC 34 (32-36) gm/dL RDW Coeff of Lo 11.9 (11.5-15.5) % Plt Count 196 (140-440) K/uL Neut % (Auto) 79.6 H (42.0-72.0) % Lymph % (Auto) 15.5 L (20-44) % [place] % (Auto) 3.7 (0.0-11.0) % Eos % (Auto) 0.2 (0.0-7.0) % Baso % (Auto) 0.1 (0.0-3.0) % Neut # (Auto) 9.40 H (1.7-7.0) K/uL Lymph # (Auto) 1.80 (0.90-2.90) K/uL [place] # (Auto) 0.40 (0.00-0.90) K/UL Eos # (Auto) 0.00 (0.00-0.50) K/uL Baso # (Auto) 0.00 (0.00-0.30) K/uL Abs Immat Gran (auto) 0.10 (0.00-0.30) K/uL Imm/Tot Granulo (auto) 0.9 % Sodium 138 (135-149) mmol/L Potassium 3.7 (3.6-5.1) mmol/L Chloride 102 (96-114) mmol/L Carbon Dioxide 22 (20-32) mmol/L Anion Gap 14 (7-15) mEq/L BUN 17 (5-24) mg/dL Creatinine 1.0 (0.5-1.5) mg/dL Estimated Creat Clear 116.09 Estimated GFR 104 ml/min Glucose 97 (60-115) mg/dL Lactate 0.8 (0.5-1.9) mmol/L Calcium 9.7 (8.4-10.6) mg/dL Total Bilirubin 1.0 (0.1-1.5) mg/dL AST 24 (12-35) U/L ALT 19 (4-50) U/L Alkaline Phosphatase 85 (40-150) U/L Total Protein 7.6 (6.0-8.3) g/dL Albumin 5.0 (3.3-5.0) g/dL Lipase 32 (23-300) U/L Imaging Data Chest x-ray: Attestation: I have reviewed the pertinent imaging results. My impression: No infiltrates. No pneumothorax. No mediastinal emphysema. Radiologist's impression: Impression: 1. No acute cardiopulmonary process CT scan - abdomen: Attestation: I have reviewed the pertinent imaging results. Radiologist's impression: IMPRESSION: 1. No acute abdominal pelvic pathology. The etiology of the patient`s abdominal pain is not elucidated on this examination. 2. Small hiatal hernia with evidence of reflux. 3. No pneumomediastinum or pneumoperitoneum. Discharge Plan Discharge Clinical Impression: Vomiting, Abdominal pain Patient Disposition: Home, Self-Care Condition: Stable Instructions: Acute Nausea and Vomiting (DC), Abdominal Pain (ED) Additional Instructions: As we discussed, your workup is reassuring so far. No serious or life-threatening cause of your symptoms. However, we do not knows the cause of your symptoms with certainty. This could be related to stomach acid martinez in your stomach or esophagus, or it could be related to poor emptying from her stomach, or it could be related to cannabis hyperemesis syndrome. Use the nausea medications if needed. Return to the ER right away if you have uncontrolled nausea or vomiting, worsening pain, fever, or any other problems. Even if you get better, please recheck with your regular doctor or your doctors at [facility] within the next 2-3 days. Prescriptions: New sucralfate [Carafate] 100 mg/mL suspension 10 ml PO BID PRNQty: 300 0RF prochlorperazine maleate [Compazine] 10 mg tablet 10 mg PO TID PRNQty: 10 0RF No Action prochlorperazine maleate 10 mg tablet 10 mg PO Q6H valacyclovir [Valtrex] 500 mg tablet 500 mg PO QDAY hydroxyzine HCl 25 mg tablet 25 mg PO BID PRN hydroxyzine HCl 50 mg tablet PO trazodone 50 mg tablet 100 mg PO QPM PRN sertraline 100 mg tablet 100 mg PO DAILY lisdexamfetamine [Vyvanse] 20 mg capsule 20 mg PO DAILY famotidine 40 mg tablet 40 mg PO DAILY esomeprazole magnesium 40 mg capsule,delayed release(DR/EC) 40 mg PO DAILY sumatriptan succinate 50 mg tablet 50 mg PO PRN metoclopramide HCl [Reglan] 10 mg tablet 10 mg PO Q6H PRN (Reason: nausea and vomiting) Qty: 30 0RF Follow Up/Referrals: Provider,Not a Local [Primary Care Provider] - Stand Alone Forms: [employer] Info Instructions
--- NOTE | 2024-01-09 16:11 | CRLHL7_ITS ---
For Patients: As a result of the Century Cures Act, medical imaging exams and procedure reports are released immediately into your electronic medical record. You may view this report before your referring provider. If you have questions, please contact your health care provider. INDICATION: Abdominal pain. TECHNIQUE: Multiplanar CT examination of the abdomen and pelvis was performed after the administration of 93 mL Isovue 370 intravenous contrast. COMPARISON: CT abdomen pelvis 12/12/2022. FINDINGS: Lower chest: No focal consolidation. Normal heart size. No pleural effusions or pneumothorax. Small hiatal hernia with evidence of reflux. Liver: Unremarkable. Gallbladder: Unremarkable. Biliary: Unremarkable. Pancreas: Within normal limits. Spleen: Unremarkable. Adrenal glands: Unremarkable. Renal/ureters/bladder: Normal in size and symmetrically enhancing. No obstructive uropathy. No hydronephrosis or obstructive urinary calculi. Several tiny calculi the collecting system kidneys. Scattered renal hypodensities, too small to characterize, probably simple renal cyst. The ureters appear unremarkable. The bladder is within normal limits. Pelvis: Unremarkable. Gastrointestinal: Underdistended colon limits evaluation. No bowel wall thickening or bowel obstruction. Normal appendix. No significant colonic diverticulosis. Mild colonic stool burden. Vasculature: No aortic aneurysm. The portal vein remains patent. No significant atherosclerotic calcifications. Lymph nodes: No pathologic lymphadenopathy by size criteria. Peritoneum: No free fluid or pneumoperitoneum. No drainable fluid collections. Abdominal wall/soft tissues: Unremarkable. Bones: No acute osseous abnormalities. IMPRESSION: 1. No acute abdominal pelvic pathology. The etiology of the patient`s abdominal pain is not elucidated on this examination. 2. Small hiatal hernia with evidence of reflux. 3. No pneumomediastinum or pneumoperitoneum. Please note that all CT scans at this facility use dose modulation, iterative reconstruction, and/or weight-based dosing when appropriate to reduce radiation dose to as low as reasonably achievable. Dictated by Mahendra Zamora MD @ 01/09/2024 5:23:44 PM (Electronically Signed)
--- NOTE | 2024-01-09 16:16 | CRLHL7_ITS ---
For Patients: As a result of the Cures Act, medical imaging exams and procedure reports are released immediately into your electronic medical record. You may view this report before your referring provider. If you have questions, please contact your health care provider. Indication: Chest pain. Technique: Frontal and lateral chest radiographs. Comparison: None. Findings: Lungs are clear. No consolidation, effusion or pneumothorax. Cardiomediastinal silhouette is within normal limits. No significant osseous or soft tissue findings. Impression: 1. No acute cardiopulmonary process. Dictated by Michael Faria MD @ 01/09/2024 5:24:36 PM (Electronically Signed)
--- OUTSIDE RECORDS SUMMARY | 2024-01-09 16:27 | XMS_ITS | Referral Summary ---
Author Organization [facility] Address [address] [place] [address] Care Team Providers Care Drawstring Knotter Name Role Phone Jose Enrique Porras Primary [...] of Treatment Not on file Care Teams Drawstring Knotter Relationship Specialty Start Date End Date Jose Enrique Porras DO [address] [place] [id number] PCP - General 12/09/21
--- OUTSIDE RECORDS SUMMARY | 2024-01-09 16:27 | XMS_ITS | Encounter Summary ---
Author Organization [employer] Address [address] [place] [address] Care Team Providers Care International First Officer Name Role Phone Rm Ashley DO Primary Care Provider + Reason for Visit * Reason Comments Refill famotidine (PEPCID) 40 MG tablet [Pharmacy Med Name: Famotidine 40 MG Oral Tablet] Encounter Details Date Type Department Care Team (Late st Contact Info) Description 09/29/2023 Refill [facility] [address] [place] [address] Rm Ashley DO [address] [place] [address] Refill (famotidine (PEPCID) 40 MG tablet [...] as of this encounter Nursing Notes * Gypsy Ryan RN - 10/06/2023 9:29 AM CDT Further Assistance Needed on Refill from Clinician Signed order needed if appropriate. Requested medication / item listed as historical. Last qualifying visit: 05/24/2023 (with RM ASHLEY) Next scheduled visit: None Review pended order for accuracy and sign if appropriate and Close encounter Requested Prescriptions Pending Prescriptions Disp Refills famotidine (PEPCID) 40 MG tablet [Pharmacy Med Name: Famotidine 40 MG Oral Tablet] 90 Tablet 2 Sig: take 1 tablet by mouth once daily at bedtime * Jocelynn Muniz Xrwcomm - 09/29/2023 4:54 PM CDT famotidine (PEPCID) 40 MG tablet [Pharmacy Med Name: Famotidine 40 MG Oral Tablet] Medication started: 07/31/2020 Last ordered by RM ASHLEY KOFI: 12/29/2022 (274 days ago) QTY: 90, Refills: 1, Sig: take 1 tablet (40 mg) by mouth daily at bedtime. (changed but equivalent) -> This medication was discontinued on 01/12/2023 by ESME MADDEN -> Refill x 9 months, qty: 90, refills: 2 (until due for an office visit) Last qualifying visit: 05/24/2023 (with RM ASHLEY) Next scheduled visit: None [employer] Emb[employer]ded Refills, Reference: [id number], 09/29/2023 4:54:30 PM CDT, Pool: ENEDELIA Trevino [facility] Services - Primary Care [[id number]] ([id number]) documented in this encounter Plan of Treatment Not on file documented as of this encounter Visit Diagnoses Not on filedocumented in this encounter Care Teams International First Officer Relationship Specialty Start Date End Date Rm Ashley DO [address] [facility] [place] [id number] PCP - General 10/08/17 documented as of this encounter
--- OUTSIDE RECORDS SUMMARY | 2024-01-09 16:27 | XMS_ITS | Encounter Summary ---
Author Organization [employer] Address [address] [place] [address] Care Team Providers Care Tower Helper Name Role Phone Jose Enrique Porras DO Primary Care Provider + Reason for Visit * Reason Comments Symptoms Encounter Details Date Type Department Care Team (Late st Contact Info) Description 11/22/2023 Telephone [facility] [address] [place] [place] [place] [address] Jose Enrique Porras DO [address] [place] [address] Symptoms Social History Tobacco Use Types Packs/Day Years [...] as of this encounter Nursing Notes * Lili Jackman, RN - 11/22/2023 12:17 PM CDT Situation/Background (brief explanation of current symptoms/situation): Spoke with patient. Patientwas tearful on the phone. Has had some traumatic events recently and feels depression and anxiety are worse. Feels like he can't handle all the emotions he is having.Has a lot going on and needs to be able to function for work, court, etc. Denies any suicidal thoughts. Is currently taking Zoloft and is wondering about increasing the dose and also getting a prescription for PRN hydroxyzine which he has received from ER in the past. Did complete PHQ-9 and OLIVIA-7 with patient. Has emergency therapy appointment tomorrow at noon. Reviewed with Dr. Porras. Per CHIN from Dr. Porras ok to offer video visit today. Reviewed pertinent medical history and medications as they relate to call: Yes documented in this encounter Plan of Treatment Not on file documented as of this encounter Visit Diagnoses Not on filedocumented in this encounter Care Teams Tower Helper Relationship Specialty Start Date End Date Jose Enrique Porras DO [address] [place] [address] PCP - General 10/08/17 documented as of this encounter
--- OUTSIDE RECORDS SUMMARY | 2024-01-09 16:27 | XMS_ITS | Encounter Summary ---
Author Organization [facility] Address [address] [place] [address] Care Team Providers Care Formula Clerk Name Role Phone Jose Enrique Porras DO Primary Care Provider + Reason for Visit * Reason Comments Video Visit Discuss zoloft medic ation Encounter Details Date Type Department Care Team (Latest Contact Info) Description 11/22/2023 1:50 PM CDT Telemedicine [facility] [address] [place] [address] Jose Enrique Porras DO [address] [place], [place] [id number] Encounter for medication review (Primary Dx); PTSD (post-traumatic stress disorder) (HRC); ADHD, predominantly inattentive type (HRC); OLIVIA (generalized anxiety disorder) (HRC); Panic attacks (HRC); Severe episode of recurrent major depressive disorder, 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 He was located in his car that has parked and he was not driving. I am here in the office. He requests a video visit because of acute status change regarding his moods. He has a longstandinghistory of depression, anxiety, PTSD, and ADHD. He remains compliant with his medications namely his Zoloft, Vyvanse but unfortunately has had somepretty significant changes in his life. He has been working on getting more visitation and custody rights with his son but because of a do not contact order that relapsed there was apparently a violation he had just been 24 hours in group home. This has caused significant issues as now he apparently can not see his son. He thought he was making progress but is concern regarding a setback. He was no thoughts of hurting himself or others but is issues right now regarding panic and significant anxiety regarding his situation. Nursing Notes: Sonam Potter, [facility] 11/22/23 1338 Signed Type of service: Video visit. Patient location was home. Provider location was [facility]. Patient gave verbal consent for telehealth appointment: YES Chief Complaint Patient presents with Video Visit Discuss zoloft medication Others present during visit: self Vitals: There were no vitals taken for this visit. Tobacco History: Social History Tobacco Use Smoking Status Every Day Current packs/day: 0.50 Types: Cigarettes Smokeless Tobacco Never Allergies: Allergies Allergen Reactions Sulfa Antibiotics Unknown Sulfamethoxazole-Trimethoprim Unknown Trimethoprim Unknown Additional Information: None Sonam Bonilla BERNIE Potter 1:37 PM 11/22/2023 Patient Active Problem List Diagnosis OLIVIA (generalized [...] esomeprazole (NEXIUM) 40 MG capsule Take 1 capsule by mouth once daily famotidine (PEPCID) 40 MG tablet take 1 tablet by mouth once daily at bedtime hydrOXYzine HCl (ATARAX) 25 MG tablet Take 1 Tablet (25 mg) by mouth three times a day as needed for Anxiety. lisdexamfetamine (VYVANSE) 20 MG capsule Take 1 Capsule (20 mg) by mouth daily for 30 days. metoclopramide (REGLAN) 10 MG tablet Take 1 Tablet (10 mg) by mouth every 8 hours as needed for Nausea or Vomiting (for nausea or vomiting). sertraline (ZOLOFT) 100 MG tablet Take 1.5 Tablets (150 mg) by mouth daily. SUMAtriptan (IMITREX) 50 MG tablet Take 1 Tablet (50 mg) by mouth as needed for Migraine. at onset of headache; may repeat one time in 2 hours if headache recurs. traZODone (DESYREL) 50 MG tablet Take 1-2 tabs PO qhs prn insomnia valACYclovir (VALTREX) 1 g tablet Take 1 tablet by mouth once daily No current facility-administered medications for this visit. Physical Exam: There were no vitals taken for this visit. Patient answers questions appropriately on a video visit. He does become tearful with ongoing conversation but does calm himself down. Speech is nonpressured. Non tangential. No results found for any visits on 11/22/23. Assessment/Plan Patient has been compliant with seeing his therapist every 2 weeks. It sounds like that is going beau increased now to you seeing them every week. I think this has be a good idea. Discussed the importance of ongoing prioritization of good sleep as much as possible. He says overall the trazodone continues to be beneficial. We will increase his Zoloft up to 150 mg daily. I will add back hydroxyzine 25 mg p.o. t.i.d. as needed for panic which he was effective in the past. Further adjustments of his Zoloft maybe necessary moving forward and or changes with his Vyvanse but we will make changes slowly to avoid complications and side effects. If moods worsen or he was thoughts of hurting himself or others he understands to seek immediate medical attention. I want to see him back in 2-4 weeks for recheck or sooner with questions Karol was seen today for video visit. Diagnoses and all orders for this visit: Encounter for medication review PTSD (post-traumatic stress disorder) (HRC) ADHD, predominantly inattentive type (HRC) OLIVIA (generalized anxiety disorder) (HRC) - hydrOXYzine HCl (ATARAX) 25 MG tablet; Take 1 Tablet (25 mg) by mouth three times a day as neededfor Anxiety. - sertraline (ZOLOFT) 100 MG tablet; Take 1.5 Tablets (150 mg) by mouth daily. Panic attacks (HRC) - hydrOXYzine HCl (ATARAX) 25 MG tablet; Take 1 Tablet (25 mg) by mouth three times a day as neededfor Anxiety. 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 This note created using [employer] speech-recognition software and may contain unintended wordsubstitutions Devin Porras DO .................... 11/22/2023 1:56 PM documented in this encounter Nursing Notes * Sonam Potter, [employer] - 11/22/2023 1:50 PM CDT Type of service: Video visit. Patient location was home. Provider location was [facility]. Patient gave verbal consent for telehealth appointment: YES Chief Complaint Patient presents with Video Visit Discuss zoloft medication Others present during visit: self Vitals: There were no vitals taken for this visit. Tobacco History: Social History Tobacco Use Smoking Status Every Day Current packs/day: 0.50 Types: Cigarettes Smokeless Tobacco Never Allergies: Allergies Allergen Reactions Sulfa Antibiotics Unknown Sulfamethoxazole-Trimethoprim Unknown Trimethoprim Unknown Additional Information: None Sonam Potter CMA 1:37 PM 11/22/2023 documented in this encounter Plan of Treatment Not on file documented as of this encounter Visit Diagnoses Diagnosis Encounter for medication review- Primary PTSD (post-traumatic stress disorder) (HRC) Posttraumatic stress disorder ADHD, predominantly inattentive type (HRC) Attention deficit disorder with hyperactivity OLIVIA (generalized anxiety disorder) (HRC) Generalized anxiety disorder Panic attacks (HRC) Panic disorder without agoraphobia Severe episode of recurrent major depressive disorder, 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
--- OUTSIDE RECORDS SUMMARY | 2024-01-09 16:27 | XMS_ITS | Encounter Summary ---
Author Organization [facility] Address [address] [place] [address] Care Team Providers Care Post Acute Care Nurse Practitioner Name Role Phone Rm Ashley DO Primary Care Provider + Reason for Visit * Reason Onset Date Comments Refill 11/10/2023 vyvanse Encounter Details Date Type Department Care Team (Late st Contact Info) Description 11/10/2023 Refill [facility] [address] [place] [address] Rm Ashley DO 3 [place] [address] Refill (vyvanse) Social History Tobacco Use Types Packs/Day Years [...] as of this encounter Nursing Notes * Adamgleningrid Jocelynn Xrwcomm - 11/10/2023 9:27 AM CDT lisdexamfetamine (VYVANSE) 20 MG capsule Medication started: 07/05/2019 Last ordered by RM ASHLEY: 09/21/2023 (50 days ago) QTY: 30, Refills: 0, Sig: take 1 capsule (20 mg) by mouth daily. (changed) -> The most recent order on 10/21/2023. -> Unable to determine if sig has changed, review required. -> Medication cannot be delegated. Last qualifying visit: 05/24/2023 (with RM ASHLEY) Next scheduled visit: [facility] Embedded Refills, Reference: [id number], 11/10/2023 9:27:15 AM [facility] [[id number]] ([id number]) * Jocelynn Muniz - 11/10/2023 9:27 AM CDT No Careplan note found by [employer]. documented in this encounter Plan of Treatment Not on file documented as of this encounter Visit Diagnoses Diagnosis ADHD, predominantly inattentive type (HRC) Attention deficit disorder with hyperactivity documented in this encounter Care Teams Post Acute Care Nurse Practitioner Relationship Specialty Start Date End Date Rm Ashley DO 3 [facility] [place] [address] PCP - General 10/08/17 documented as of this encounter
--- OUTSIDE RECORDS SUMMARY | 2024-01-09 16:27 | XMS_ITS | Clinical Summary ---
Author Organization [facility] Address [address] [place] [address] Care Team Providers Care Application Technical Designer Name Role Phone Jose Enrique Porras Primary [...] 12/15/2016 12/15/2006 YEARLY PREVENTIVE VISIT 04/01/2017 04/01/2016 PHQ-2 (once per calendar year) 2023 COVID-19 Vaccine ( season) 2023 INFLUENZA VACCINE (#1) 2023 2, 04/02/2009, 01/24/2009, Additional history exists Pneumococcal Vaccine: Pediatrics (0 to 5 Years) [...] age to complete this topic Care Teams Application Technical Designer Relationship Specialty Start Date End Date Jose Enrique Porras DO [address] [place] [address] PCP - General 12/09/21
--- OUTSIDE RECORDS SUMMARY | 2024-01-09 16:27 | XMS_ITS | Clinical Summary ---
Author Organization [employer] Address [address] [place] [address] Care Team Providers Care Adz Worker Name Role Phone Jose Enrique Porras Primary Care Provider + Source Comments You are receiving this document as you are listed as the primary care provider,follow-up provider, or the patient has been referred to you for consultation.This is in compliance with the Medicare and[facility] EHR Incentive Program,which states Providers who transition their patient to another setting of careor provider of care or refers their patient to another provider of care shouldprovide summary care record for each transition of care or referral. Infer Allergies Active Allergy Reactions Criticality Noted Date Comments Sulfa Antibiotics Unknown 07/27/2015 Sulfamethoxazole-Trimethoprim Unknown 2017 Trimethoprim Unknown 08/22/2021 Medications Medication Sig Dispensed Refills Start Date End Date Status traZODone (DESYREL) 50 MG tabletIndications:In somnia, unspecified type Take 1-2 tabs PO qhs prn insomnia 30 Tablet 1 05/24/2023 Active metoclopramide (REGLAN) 10 MG tablet Take 1 Tablet (10 mg) by mouth every 8 hours as needed for Nausea or Vomiting (for nausea or vomiting). 15 Tablet 1 05/24/2023 Active SUMAtriptan (IMITREX) 50 MG tabletIndications:Ot her migraine without status migrainosus, not intractable Take 1 Tablet (50 mg) by mouth as needed for Migraine. at onset of headache; august repeat one time in 2 hours if headache recurs. 9 Tablet 3 05/24/2023 Active valACYclovir (VALTREX) 1 g tabletIndications:Ge nital herpes simplex, unspecified site (HRC) Take 1 tablet by mouth once daily 90 Tablet 08/30/2023 Active famotidine (PEPCID) 40 MG tablet take 1 tablet by mouth once daily at bedtime 90 Tablet 2 10/06/2023 Active esomeprazole (NEXIUM) 40 MG capsuleIndications:B arrett's esophagus without dysplasia,Gastroesop hageal reflux disease, unspecified whether esophagitis present Take 1 capsule by mouth once daily 90 Capsule 2 09/29/2023 Active lisdexamfetamine (VYVANSE) 20 MG capsuleIndications:A DHD, predominantly inattentive type (HRC) Take 1 Capsule (20 mg) by mouth daily for 30 days. 30 Capsule 11/11/2023 Active hydrOXYzine HCl (ATARAX) 25 MG tabletIndications:GA D (generalized anxiety disorder) (HRC),Panic attacks (HRC) Take 1 Tablet (25 mg) by mouth three times a day as needed for Anxiety. 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 History of substance abuse 08/29/2019 Controlled substance agreement signed 04/20/2018 Overview (02/16/2019): Adderall 30 mg #30/month OLIVIA (generalized anxiety disorder) 02/25/2018 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 01/25/2018 Severe episode of recurrent major depressive disorder, without psychotic features 01/01/2017 PTSD (post-traumatic stress disorder) 01/01/2017 ADHD, predominantly inattentive type 01/01/2017 Overview (02/16/2019): adderall 25 mg per day Hiatal hernia with GERD 04/01/2016 Resolved Problems Problem Noted Date Diagnosed Date Resolved Date Hematemesis 08/29/2019 10/23/2019 Major depression 08/29/2019 10/23/2019 Genital herpes simplex 08/27/201709/03 Herpes simplex infection of penis 08/27/2017 08/27/2017 Asperger syndrome 07/15/2016 02/25/2018 Insomnia 04/01/2016 02/25/2018 Tobacco use disorder 04/01/2016 021 Encounters Date Type Department Care Team Description 11/22/2023 1:50 PM CDT Telemedicine [facility] [address] [place] [id number] Jose Enrique Porras DO Encounter for medication review (Primary Dx); PTSD (post-traumatic stress disorder) (HRC); ADHD, predominantly inattentive type (HRC); OLIVIA (generalized anxiety disorder) (HRC); Panic attacks (HRC); Severe episode of recurrent major depressive disorder, 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) 11/22/2023 Telephone [facility] [address] [place] [id number] Jose Enrique Porras, Symptoms 11/10/2023 Refill [facility] 3 [facility] [place] [address] Jose Enrique Porras, Refill (vyvanse) from Last 3 Months Immunizations Name Administration Dates Next Due Flu Vac (3+ yrs) 12/31/2011, 8,03/24/2007,05/28/2006, Flu Vac (6-35 mo) 01/24/2009 Flu Vac Preserv Free (3+yrs) 01/24/2009 Influenza [id number] 04/02/2009 PPSV23 (Pneumovax) 03/16/2005 Tdap 12/15/2006 Family [...] Adult Preventive Visit 04/01/2018 04/01/2016 COVID-19 Vaccine ( season) 2023 Influenza (#1) 2023 12/31/2011, 11/2008, 01/24/2009, Additional history exists Zoster/Shingles (1 of 2) 2044 HIV Screening (Preventive Services) Completed 10/08/2020, 08/20/2017, 08/20/2017 HPV Vaccine Aged Out No longer [...] Negative (Non Reactive) 10/09/2020 12:23 AM CDT [facility] Comment:HIV-1 p24 Antigen an d HIV-1/HIV-2 Antibody not detected Blood Venipuncture / Unknown 10/08/2020 5:13 PM CDT 10/08/2020 5:13 PM CDT Emiliano Humphries DO LAB_1 [facility] [address] [place] [address], [facility] from Last 3 Months or Most [...] 8:45 PM 02/28/2018 7:05 AM Care Teams Adz Worker Relationship Specialty Start Date End Date Jose Enrique Porras DO [address] [place] [address] PCP - General 10/08/17
[2024-01-09 16:33] LABS: Lactate* 0.8 mmol/L (0.5-1.9)
[2024-01-09 16:36] LABS: Basophils Percent Auto 0.1 % (0.0-3.0); Eosinophils Percent Auto 0.2 % (0.0-7.0); Hemoglobin* 14.2 gm/dL (13.5-17.5); Immature Granulocytes Pct Auto 0.9 %; Lymphocytes Percent Auto 15.5 % (20-44); Mean Corpuscular HGB Conc 34 gm/dL (32-36); Mean Corpuscular Hemoglobin 31 pg (26-34); Mean Corpuscular Volume 92 fL (80-100); Monocytes Percent Auto 3.7 % (0.0-11.0); Neutrophils Percent Auto 79.6 % (42.0-72.0); Platelet Count* 196 K/uL (140-440); RDW Coefficient of Variation % 11.9 % (11.5-15.5); Red Blood Count 4.57 m/uL (4.30-5.90); White Blood Count* 11.76 K/uL (4.50-11.00)
[2024-01-09 16:38] LABS: Slide Review Reflex No
[2024-01-09 16:52] LABS: Chloride* 102 mmol/L (96-114)
[2024-01-09 16:53] LABS: Potassium* 3.7 mmol/L (3.6-5.1); Sodium* 138 mmol/L (135-149)
[2024-01-09 16:55] LABS: Alkaline Phosphatase* 85 U/L (40-150); Anion Gap 14 mEq/L (7-15); Aspartate Amino Transferase* 24 U/L (12-35); Carbon Dioxide* 22 mmol/L (20-32); Est. Creatinine Clearance* 116.09; Estimated Glomerular Filt Rate 104 ml/min; Total Protein* 7.6 g/dL (6.0-8.3)
[2024-01-09 16:56] LABS: Alanine Aminotransferase* 19 U/L (4-50); Blood Urea Nitrogen* 17 mg/dL (5-24); Calcium* 9.7 mg/dL (8.4-10.6); Glucose* 97 mg/dL (60-115); Lipase* 32 U/L (23-300)
[2024-01-09] MEDS: KETOROLAC 15 MG/ML inj IVP (17:03)
[2024-01-09] MEDS: LACTATED RINGERS 1000 ML IV (17:03)
[2024-01-09] MEDS: METOCLOPRAMIDE HCL 5 MG/ML INJ 10 MG IVP (17:05)
[2024-01-09] MEDS: diphenhydrAMINE 50 MG/ML inj 25 MG IVP (17:06)
[2024-01-09] MEDS: PANTOPRAZOLE SODIUM 40 MG INJ IVP (17:09)
[2024-01-09 17:11] VITALS: BP 120/78; PULSE 74; RESP 16; O2SAT 97
[2024-01-09] MEDS: droperidoL 2.5 MG/ML inj IV (18:10)
[2024-01-09 18:30] VITALS: BP 133/86; PULSE 60; RESP 16; O2SAT 97
== END 2024-01-09 19:29 | disposition home or self-care (01) ==
PROVIDERS: Emergency Provider Emergency Medicine
DX: R10.9 Unspecified abdominal pain (principal); R11.10 Vomiting, unspecified
CPT/HCPCS: 36415; 71046; 74177; 80053; 81001; 83605; 83690; 85025; 96374; 96375; 99284; 99285; J1200; J1790; J1885; J2470; J2765; J7120; Q9967

== ENCOUNTER 2024-01-10 10:41 | Emergency (ER) | payer OTHER, SELFPAY ==
[2024-01-10 10:48] VITALS: BP 127/71; PULSE 70; RESP 16; TEMP 37.2; O2SAT 96; BMI 26.5
--- NOTE | 2024-01-10 11:09 | ED.NAVMDI ---
HPI - Nausea/Vomiting/Diarrhea General Chief complaint: Nausea/Vomiting Stated complaint: vomiting Time Seen by Provider: 01/10/24 10:51 History of Present Illness HPI Narrative: This 28-year-old male comes in with persistent vomiting and upper epigastric abdominal pain. He was seen about 3 days ago in this emergency department at which time he had chest x-ray and CT imaging of the abdomen and pelvis. He was diagnosed with cyclical vomiting syndrome and did have improvement after receiving fluids and droperidol. He went home and states that he has had symptoms recurring with vomiting. He states that the vomit is large amount and is dark red to where he is suspicious that he may have a bleeding ulcer. He has been in touch with a GI doctor in the past but his physician moved out of state so he is in the process of connecting with a new supervisor estimator and drafter and plans to have a upper GI scope. He has had these in the past and there is prior history of abdominal pain with vomiting including hiatal hernia and Simpson's esophagus. He is taking a proton pump inhibitor. He states that he does use marijuana but his last use was about 3 days ago. He arrives here with normal vital signs and has good skin color. Related Data Home Medications ?Medication ?Instructions ?Recorded ?Confirmed esomeprazole magnesium 40 mg 40 mg PO DAILY 11/08/22 01/10/24 capsule,delayed release famotidine 40 mg tablet 40 mg PO DAILY 11/08/22 01/10/24 lisdexamfetamine 20 mg capsule 20 mg PO DAILY 11/08/22 01/10/24 (Vyvanse) sumatriptan succinate 50 mg tablet 50 mg PO PRN 11/08/22 01/10/24 prochlorperazine maleate 10 mg 10 mg PO Q6H 12/15/22 01/09/24 tablet hydroxyzine HCl 25 mg tablet 25 mg PO BID PRN 06/01/23 01/10/24 hydroxyzine HCl 50 mg tablet mg PO 06/01/23 06/01/23 sertraline 100 mg tablet 100 mg PO DAILY 06/01/23 01/10/24 trazodone 50 mg tablet 100 mg PO QPM PRN 06/01/23 01/10/24 valacyclovir 500 mg tablet 500 mg PO QDAY 06/01/23 01/10/24 (Valtrex) Previous Rx's ?Medication ?Instructions ?Recorded metoclopramide HCl 10 mg tablet 10 mg PO Q6H PRN nausea and 07/30/23 (Reglan) vomiting #30 tabs prochlorperazine maleate 10 mg 10 mg PO TID PRN #10 tabs 01/09/24 tablet (Compazine) sucralfate 100 mg/mL oral 10 ml PO BID PRN #300 mL 01/09/24 suspension (Carafate) haloperidol 5 mg tablet 5 mg PO DAILY #10 tabs 01/10/24 Allergies Allergy/AdvReac Type Severity Reaction Status Date / Time Sulfa (Sulfonamide Allergy Unknown Verified 01/10/24 10:54 Antibiotics) sulfamethoxazole Allergy Unknown Verified 01/10/24 10:54 [From Bactrim] trimethoprim [From Bactrim] Allergy Unknown Verified 01/10/24 10:54 Review of Systems Status of ROS: Reports: 10 or more systems reviewed and unremarkable except as noted in History and below Narrative: Constitutional: No fevers, no weight gain or loss. Eyes: No discharge. No vision changes. HENT: No congestion, no sore throat, no ear pain. Cardiovascular: No chest pain, no palpitations. Respiratory: No shortness of breath, no wheezes, no cough. Gastrointestinal: Upper epigastric abdominal pain with nausea and vomiting. No diarrhea. Genitourinary: No dysuria, no hematuria. Musculoskeletal: Normal range of motion. Skin: No rashes, no pruritis. Neurological: No dizziness, weakness, sensory change, speech change. Endo/Heme/Allergies: No bruising or bleeding. No polydipsia. Pysch: no suicidality, no anxiety, no insomnia. All other systems reviewed and are negative. [facility] Social History Smoking Status: Current every day smoker What tobacco products do you use: cigarettes Smoking packs per day: 0.5 Smoking cigarettes per day: 10.0 Years smoked: 10 Smoking pack-years: 5.00 Do you use any of these nicotine containing products: None Second hand tobacco smoke exposure: No How often do you have a drink containing alcohol: never AUDIT-C Alcohol total score: 0 Non-prescribed substance use: marijuana (any form) service: No Exam Narrative: Exam Narrative: Constitutional: Well-developed, well-nourished, no acute distress. HEENT: Normocephalic, atraumatic. Neck: Normal range of motion. Nontender. Supple. Heart: Regular. No murmurs. Normal rate. Intact distal pulses. Lungs: Clear to auscultation. No chest discomfort. No wheezes, rhonchi, or rales. Abdomen: Normal bowel sounds. Upper epigastric abdominal pain. Genitalia: Deferred. Back: No midline tenderness. Normal range of motion. Extremities: Normal range of motion. No injury. Skin: Intact. No rash. Warm. No erythema or pallor. Neurologic: No altered sensation. No weakness. Alert and oriented. Psychiatric: No suicidality. No anxiety or depression. No insomnia. Nursing notes and vitals signs are reviewed. Const: Vital Signs, click to edit/add: Vital Signs - 24 hr 01/10/24 10:48 Temperature 98.9 F Pulse Rate [Pulse Oximeter] 70 Respiratory Rate 16 Blood Pressure [Ri t Upper Arm] 127/71 Pulse Oximetry 96 Oxygen Delivery Me thod Room Air Course Vital Signs Vital signs: Initial Vital Signs Temperature 98.9 F 01/10/24 10:48 Temperature Source Temporal Artery Scan 01/10/24 10:48 Pulse Rate 70 01/10/24 10:48 Respiratory Rate 16 01/10/24 10:48 Blood Pressure 127/71 01/10/24 10:48 Blood Pressure Mean 89 01/10/24 10:48 Blood Pressure Position Sitting 01/10/24 10:48 Pulse Oximetry 96 01/10/24 10:48 Oxygen Delivery Method Room Air 01/10/24 10:48 Vital Signs Temperature 98.9 F 01/10/24 10:48 Pulse Rate 70 01/10/24 10:48 Respiratory Rate 16 01/10/24 10:48 Blood Pressure 127/71 01/10/24 10:48 Pulse Oximetry 96 01/10/24 10:48 Oxygen Delivery Method Room Air 01/10/24 10:48 Temperature 98.9 F 01/10/24 10:48 Pulse Rate 70 01/10/24 10:48 Respiratory Rate 16 01/10/24 10:48 Blood Pressure 127/71 01/10/24 10:48 Pulse Oximetry 96 01/10/24 10:48 Oxygen Delivery Method Room Air 01/10/24 10:48 Medications Administered Medications: Discontinued Medications Generic Name Dose Route Start Last Admin Trade Name Ronaldo PRN Reason Stop Dose Admin Haloperidol Lactate 5 mg 01/10/24 11:07 01/10/24 11:28 Haloperidol 5 Mg/Ml Inj IV 01/10/24 11:08 5 mg ONCE ONE Administration Sodium Chloride 1,000 mls @ 1,000 mls/hr 01/10/24 11:15 01/10/24 12:25 0.9 % Sodium Chloride 1000 Ml IV 01/10/24 12:14 Infused .Q1H UMER Infusion Ondansetron HCl 4 mg 01/10/24 11:07 01/10/24 11:28 Ondansetron 2 Mg/Ml Inj IVP 01/10/24 11:08 4 mg ONCE ONE Administration MDM - Nausea/Vomiting/Diarrhea MDM Narrative Medical decision making narrative: This 28-year-old male comes in with recurrent vomiting and was seen 2 or 3 days ago in this emergency department with same symptoms. He had temporary relief with the treatments administered then which included droperidol. He has a diagnosis of cyclical vomiting syndrome and did use marijuana about 3 days ago. He comes in today again because his symptoms have persisted. An IV was established and labs are acquired. The patient received a L of normal saline and an IV dose of Haldol 5 mg. He also received Zofran 4 mg. He states that he is feeling somewhat better and has not had at ongoing vomiting. Lab results returned with completely normal findings. In particular his hemoglobin returns at 14.1. He was thinking that he is vomiting up some blood but if that is the case he is clearly able to replenish what he is losing. He has been seen by a GI physician and needs to establish care with a new provider as this 1 has moved out of state. He is okay to be discharged home. I did provide a prescription for few tablets of Haldol for as needed relief of his symptoms. He is strongly encouraged to avoid using marijuana completely. Lab Data Labs: Lab Results 01/10/24 Range/Units 11:25 WBC 10.37 (4.50-11.00) K/uL RBC 4.52 (4.30-5.90) m/uL Hgb 14.1 (13.5-17.5) gm/dL Hct 41.2 (37.0-53.0) % MCV 91 (80-100) fL MCH 31 (26-34) pg MCHC 34 (32-36) gm/dL RDW Coeff of Lo 11.9 (11.5-15.5) % Plt Count 205 (140-440) K/uL Neut % (Auto) 68.7 (42.0-72.0) % Lymph % (Auto) 22.3 (20-44) % Weston % (Auto) 7.9 (0.0-11.0) % Eos % (Auto) 0.5 (0.0-7.0) % Baso % (Auto) 0.2 (0.0-3.0) % Neut # (Auto) 7.13 H (1.7-7.0) K/uL Lymph # (Auto) 2.31 (0.90-2.90) K/uL Weston # (Auto) 0.80 (0.00-0.90) K/UL Eos # (Auto) 0.05 (0.00-0.50) K/uL Baso # (Auto) 0.02 (0.00-0.30) K/uL Abs Immat Gran (auto) 0.04 (0.00-0.30) K/uL Imm/Tot Granulo (auto) 0.4 % Sodium 138 (135-149) mmol/L Potassium 3.2 L (3.6-5.1) mmol/L Chloride 99 (96-114) mmol/L Carbon Dioxide 25 (20-32) mmol/L Anion Gap 14 (7-15) mEq/L BUN 17 (5-24) mg/dL Creatinine 1.0 (0.5-1.5) mg/dL Estimated Creat Clear 116.09 Estimated GFR 104 ml/min Glucose 90 (60-115) mg/dL Calcium 9.7 (8.4-10.6) mg/dL Total Bilirubin 0.8 (0.1-1.5) mg/dL Direct Bilirubin 0.4 (0.0-0.5) mg/dL AST 25 (12-35) U/L ALT 18 (4-50) U/L Alkaline Phosphatase 82 (40-150) U/L Total Protein 7.4 (6.0-8.3) g/dL Albumin 5.0 (3.3-5.0) g/dL Lipase 64 (23-300) U/L Discharge Plan Discharge Clinical Impression: Vomiting, Abdominal pain Patient Disposition: Home, Self-Care Condition: Stable Additional Instructions: Take medication as needed and directed for symptomatic relief. Avoid marijuana completely. Follow-up with gastroenterology clinic or return if worsening. Prescriptions: New haloperidol 5 mg tablet 5 mg PO DAILY Qty: 10 2RF No Action prochlorperazine maleate 10 mg tablet 10 mg PO Q6H valacyclovir [Valtrex] 500 mg tablet 500 mg PO QDAY hydroxyzine HCl 25 mg tablet 25 mg PO BID PRN hydroxyzine HCl 50 mg tablet PO trazodone 50 mg tablet 100 mg PO QPM PRN sertraline 100 mg tablet 100 mg PO DAILY lisdexamfetamine [Vyvanse] 20 mg capsule 20 mg PO DAILY famotidine 40 mg tablet 40 mg PO DAILY esomeprazole magnesium 40 mg capsule,delayed release(DR/EC) 40 mg PO DAILY sumatriptan succinate 50 mg tablet 50 mg PO PRN metoclopramide HCl [Reglan] 10 mg tablet 10 mg PO Q6H PRN (Reason: nausea and vomiting) Qty: 30 0RF sucralfate [Carafate] 100 mg/mL suspension 10 ml PO BID PRNQty: 300 0RF prochlorperazine maleate [Compazine] 10 mg tablet 10 mg PO TID PRNQty: 10 0RF Follow Up/Referrals: Provider,Not a Local [Primary Care Provider] - Stand Alone Forms: Open [employer] Info Instructions
[2024-01-10] MEDS: HALOPERIDOL 5 MG/ML INJ IV (11:28)
[2024-01-10] MEDS: ONDANSETRON 2 MG/ML inj 4 MG IVP (11:28)
[2024-01-10] MEDS: 0.9 % SODIUM CHLORIDE 1000 ml 1,000 ML IV (11:28)
[2024-01-10 11:38] LABS: Basophils Absolute Auto 0.02 K/uL (0.00-0.30); Basophils Percent Auto 0.2 % (0.0-3.0); Eosinophils Absolute Auto 0.05 K/uL (0.00-0.50); Eosinophils Percent Auto 0.5 % (0.0-7.0); Hematocrit 41.2 % (37.0-53.0); Hemoglobin* 14.1 gm/dL (13.5-17.5); Immature Granulocytes Abs Auto 0.04 K/uL (0.00-0.30); Immature Granulocytes Pct Auto 0.4 %; Lymphocytes Absolute Auto 2.31 K/uL (0.90-2.90); Lymphocytes Percent Auto 22.3 % (20-44); Mean Corpuscular HGB Conc 34 gm/dL (32-36); Mean Corpuscular Hemoglobin 31 pg (26-34); Mean Corpuscular Volume 91 fL (80-100); Monocytes Percent Auto 7.9 % (0.0-11.0); Neutrophils Absolute Auto 7.13 K/uL (1.7-7.0); Neutrophils Percent Auto 68.7 % (42.0-72.0); Platelet Count* 205 K/uL (140-440); RDW Coefficient of Variation % 11.9 % (11.5-15.5); Red Blood Count 4.52 m/uL (4.30-5.90); White Blood Count* 10.37 K/uL (4.50-11.00)
[2024-01-10 11:40] LABS: Slide Review Reflex No
--- OUTSIDE RECORDS SUMMARY | 2024-01-10 11:40 | XMS_ITS | Encounter Summary ---
Author Organization [employer] Address [address] [place] [address] Care Team Providers Care Heat And Frost Insulator Helper Name Role Phone Jose Enrique Porras DO Primary Care Provider + Reason for Visit * Reason Comments Symptoms Encounter Details Date Type Department Care Team (Late st Contact Info) Description 11/22/2023 Telephone [facility] [address] [facility] [place] [address] Jose Enrique Porras DO [address] [place] [address] Symptoms Social History Tobacco Use [...] on filedocumented in this encounter Care Teams Heat And Frost Insulator Helper Relationship Specialty Start Date End Date Jose Enrique Porras DO 3 [facility] [place] [address] PCP - General 10/08/17 documented as of this encounter
--- OUTSIDE RECORDS SUMMARY | 2024-01-10 11:40 | XMS_ITS | Encounter Summary ---
Author Organization [employer] Address [address] [place] [address] Care Team Providers Care Outside Parts Salesman Name Role Phone Rm Ashley DO Primary Care Provider + Reason for Visit * Reason Comments Refill famotidine (PEPCID) 40 MG tablet [Pharmacy Med Name: Famotidine 40 MG Oral Tablet] Encounter Details Date Type Department Care Team (Late st Contact Info) Description 09/29/2023 Refill [facility] [address] [facility] [address] Rm Ashley DO 3 [place] [address] Refill (famotidine (PEPCID) 40 MG tablet [...] visit: None [facility] Embedded Refills, Reference: [id number], 09/29/2023 4:54:30 PM CDT, Pool: ENEDELIA Trevino [facility] Services - Primary Care [[id number]] ([id number]) documented in this encounter Plan of Treatment Not on file documented as of this encounter Visit Diagnoses Not on filedocumented in this encounter Care Teams Outside Parts Salesman Relationship Specialty Start Date End Date Rm Ashley DO 3 [facility] [place] [id number] PCP - General 10/08/17 documented as of this encounter
--- OUTSIDE RECORDS SUMMARY | 2024-01-10 11:40 | XMS_ITS | Clinical Summary ---
Author Organization [employer] Address [address] [place] [address] Care Team Providers Care Lead Neurodiagnostic Technologist Name Role Phone Jose Enrique Porras Primary Care Provider + Source Comments You are receiving this document as you are listed as the primary care provider,follow-up provider, or the patient has been referred to you for consultation.This is in compliance with the Medicare and[facility] EHR Incentive Program,which states Providers who transition their patient to another setting of careor provider of care or refers their patient to another provider of care shouldprovide summary care record for each transition of care or referral. 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) 11/22/2023 Telephone [facility] [address] [place] [phone] Jose Enrique Porras, Symptoms 11/10/2023 Refill [facility] 3 [facility] [place] [address] Jose Enrique Porras, Refill (vyvanse) from Last 3 Months Immunizations Name Administration Dates Next Due Flu Vac (3+ yrs) 12/31/2011, 8,03/24/2007,05/28/2006, Flu Vac (6-35 mo) 01/24/2009 Flu Vac Preserv Free (3+yrs) 01/24/2009 Influenza A5P3-41 04/02/2009 PPSV23 (Pneumovax) 03/16/2005 Tdap 12/15/2006 Family [...] Negative (Non Reactive) 10/09/2020 12:23 AM CDT [facility] Comment:HIV-1 p24 Antigen an d HIV-1/HIV-2 Antibody not detected Blood Venipuncture / Unknown 10/08/2020 5:13 PM CDT 10/08/2020 5:13 PM CDT Emiliano Humphries DO LAB_1 [facility] [address] [place] [address], [facility] from Last 3 Months or Most Recently [...] 8:45 PM 02/28/2018 7:05 AM Care Teams Lead Neurodiagnostic Technologist Relationship Specialty Start Date End Date Jose Enrique Porras DO [address] [place] [address] PCP - General 10/08/17
--- OUTSIDE RECORDS SUMMARY | 2024-01-10 11:40 | XMS_ITS | Encounter Summary ---
Author Organization [employer] Address [address] [place] [address] Care Team Providers Care Lead Burner Helper Name Role Phone Rm Ashley DO Primary Care Provider + Reason for Visit * Reason Onset Date Comments Refill 11/10/2023 vyvanse Encounter Details Date Type Department Care Team (Late st Contact Info) Description 11/10/2023 Refill [facility] [address] [place] [address] Rm Ashley DO 3 [place] [address] Refill (vyvanse) Social History Tobacco [...] RM ASHLEY) Next scheduled visit: None [facility] Embedded Refills, Reference: [id number], 11/10/2023 9:27:15 AM [facility] [[id number]] ([id number]) * Jocelynn Muniz - 11/10/2023 9:27 AM CDT No Careplan note found by [employer]. documented in this encounter Plan of Treatment Not on file documented as of this encounter Visit Diagnoses Diagnosis ADHD, predominantly inattentive type (HRC) Attention deficit disorder with hyperactivity documented in this encounter Care Teams Lead Burner Helper Relationship Specialty Start Date End Date Rm Ashley DO 3 [facility] [place] [address] PCP - General 10/08/17 documented as of this encounter
--- OUTSIDE RECORDS SUMMARY | 2024-01-10 11:40 | XMS_ITS | Clinical Summary ---
Author Organization [facility] Address [address] [place] [address] Care Team Providers Care Supply Chain Consultant Name Role Phone Jose Enrique Porras Primary [...] per calendar year) 2023 COVID-19 Vaccine ( - season) 2023 INFLUENZA VACCINE (#1) 2023 2, 04/02/2009, 01/24/2009, Additional history exists RSV VACCINE (1 - 1-dose 75+ series) 2069 Pneumococcal Vaccine: Pediatrics (0 to 5 Years) [...] age to complete this topic Care Teams Supply Chain Consultant Relationship Specialty Start Date End Date Jose Enrique Porras DO [address] [place] [address] PCP - General 12/09/21
--- OUTSIDE RECORDS SUMMARY | 2024-01-10 11:40 | XMS_ITS | Encounter Summary ---
Author Organization [employer] Address [address] [place] [address] Care Team Providers Care Lehr Cutter Name Role Phone Jose Enrique Porras DO Primary Care Provider + Reason for Visit * Reason Comments Video Visit Discuss zoloft medic ation Encounter Details Date Type Department Care Team (Latest Contact Info) Description 11/22/2023 1:50 PM CDT Telemedicine [facility] [address] [place] [address] Jose Enrique Porras DO 3 [place], [place] [id number] Encounter for medication review (Primary Dx); PTSD [...] he had just been 24 hours in [facility]. This has caused significant issues as now he apparently can not see his son. He thought he was making progress but is concern regarding a setback. He was no thoughts of hurting himself or others but is issues right now regarding panic and significant anxiety regarding his situation. Nursing Notes: Sonam Potter, [facility] 11/22/23 1338 Signed Type of service: Video visit. Patient location was home. Provider location was [facility]. Patient gave verbal consent for telehealth appointment: [...] weeks for recheck or sooner with questions Karlo was seen today for video visit. Diagnoses [...] by mouth daily. This note created using [employer] speech-recognition software and may contain unintended wordsubstitutions Devin Porras DO .................... 11/22/2023 1:56 PM documented in this encounter Nursing Notes * Sonam Potter, CHEESE [employer] - 11/22/2023 1:50 PM CDT Type of service: Video visit. Patient location was home. Provider location was [facility]. Patient gave verbal consent for telehealth appointment: [...] (HRC) documented in this encounter Care Teams Lehr Cutter Relationship Specialty Start Date End Date Jose Enrique Porras DO 3 [facility] [place] [address] PCP - General 10/08/17 documented as of this encounter
--- OUTSIDE RECORDS SUMMARY | 2024-01-10 11:40 | XMS_ITS | Referral Summary ---
Author Organization [facility] Address [address] [place] [address] Care Team Providers Care Tool Carrier Name Role Phone Jose Enrique Porras Primary [...] of Treatment Not on file Care Teams Tool Carrier Relationship Specialty Start Date End Date Jose Enrique Porras DO [address] [place] [address] PCP - General 12/09/21
[2024-01-10 11:57] LABS: Chloride* 99 mmol/L (96-114); Sodium* 138 mmol/L (135-149)
[2024-01-10 11:58] LABS: Potassium* 3.2 mmol/L (3.6-5.1)
[2024-01-10 12:00] LABS: Alkaline Phosphatase* 82 U/L (40-150); Anion Gap 14 mEq/L (7-15); Aspartate Amino Transferase* 25 U/L (12-35); Bilirubin Direct* 0.4 mg/dL (0.0-0.5); Bilirubin Total* 0.8 mg/dL (0.1-1.5); Blood Urea Nitrogen* 17 mg/dL (5-24); Calcium* 9.7 mg/dL (8.4-10.6); Carbon Dioxide* 25 mmol/L (20-32); Est. Creatinine Clearance* 116.09; Estimated Glomerular Filt Rate 104 ml/min; Glucose* 90 mg/dL (60-115); Lipase* 64 U/L (23-300); Total Protein* 7.4 g/dL (6.0-8.3)
[2024-01-10 12:01] LABS: Alanine Aminotransferase* 18 U/L (4-50)
[2024-01-10 13:01] VITALS: BP 112/68; PULSE 76; RESP 14; O2SAT 95
[2024-01-10 13:31] VITALS: BP 108/60; PULSE 63; RESP 16; O2SAT 95
[2024-01-10 13:48] VITALS: BP 127/71; PULSE 70; RESP 16; TEMP 37.2
== END 2024-01-10 13:49 | disposition home or self-care (01) ==
PROVIDERS: Emergency Provider Emergency Medicine Emergency Medical Services
DX: R11.2 Nausea with vomiting, unspecified (principal); R10.9 Unspecified abdominal pain
CPT/HCPCS: 36415; 80048; 80076; 83690; 85025; 99283; 99284; J1630; J2405; J7030

== ENCOUNTER 2025-02-26 17:03 | Emergency (ER) | payer OTHER, SELFPAY ==
--- OUTSIDE RECORDS SUMMARY | 2016-04-06 09:20 | XMS_ITS | Continuity of Care Document ---
Author Organization [facility] Address [address] [facility] [address] [place] [address] Phone Care Team Providers Care Retail Associate Manager Bilingual Name Role Phone BALWINDER OD, LUTHER Unavailable Unavailable Allergies, Adverse Reactions, Alerts Substance Reaction Status Criticality trimethoprim Active No Information sulfamethoxazole Active No Informat ion Sulfa (Sulfonamide Antibiotics) Active No Information Medications Medication Instructions Dosage Effective Dates (start - stop) Status Comments hydroxyzine HCl 10 mg tablet - Active pantoprazole 20 mg tablet,delayed release take 2 tablet by oral route every day 40 MG - Active Procedures Procedure Date REFRACTION COMPREHENSIVE EST PATIENT CL FITTING ANNUAL CK W/O CHG Advance Directives Directive Yes / No Effective Date File Name No Information Encounters Encounter Description Practice Location Reason(s) For Visit Diagnoses Date Provider Providers Copied on Encounter [facility], [address], [place], [place], [id number], tel:[phone] [facility] a comprehensive exam (chief complaint) Myopia, bilateral [address] [facility], [address], [place], [address]. tel:[phone] Family History Family Member Type Diagnosis Age At Onset No Information Payers Payer name Insurance type Covered democrat ID Authoriza tion(s) [place] BL [id number] Social History Type Description Quantity Date Captured Comments Alcohol Use Details No Caffeine Use Details No Tobacco Use Status Smoking Status Current every day smoker Non-Smoking Tobacco Use Details : No Details Available : No Details Available Sex Male Chief Complaint And Reason For Visit From encounter dated '04/06/2016 15:20'. a comprehensive exam (chief complaint). Description: The 20 year old male presents for a comprehensive exam , contact evaluation. Wears ann dailly contacts, all out. Wants to update glasses. Last eye exam 1 year ago. Distance a little blurry with contacts. Uses Rhoto moisture drops. Reason For Referral Reason For Referral No Information History Of Present Illness Encounter Date Complaint History Of Prese nt Illness a comprehensive exam The 20 year old male presents for a comprehensive exam , contact evaluation. Wears ann dailly contacts, all out. Wants to update glasses. Last eye exam 1 year ago. Distance a little blurry with contacts. Uses Rhoto moisture drops. Functional Status Date Functional Assessmen t No Information Instructions Date Instruction Additional Infor mation - New glasses Rx was given today. Patient given new CLs today. Related to Myopia, bilateral - Return in 1 year w sanchez Valle for Complete Exam w/ Contacts. Related to Myopia, bilateral Assessments Type Assessment Date assessment Myopia, bilateral Patient Care Teams Name Effective Dates (start - stop) Status Members No Information
--- OUTSIDE RECORDS SUMMARY | 2016-04-06 09:20 | XMS_ITS | Continuity of Care Document ---
Author Organization [facility] Address [address] [facility] [address] [place] [address] Phone Care Team Providers Care Supervisor Tan Room Name Role Phone BALWINDER OD, LUTHER Unavailable Unavailable Allergies, Adverse Reactions, Alerts Substance Reaction Status Criticality trimethoprim Active No Information sulfamethoxazole Active No Informat ion Sulfa (Sulfonamide Antibiotics) Active No Information Medications Medication Instructions Dosage Effective Dates (start - stop) Status Comments pantoprazole 20 mg tablet,delayed release take 2 tablet by oral route every day 40 MG - Active hydroxyzine HCl 10 mg tablet - Active Procedures Procedure Date REFRACTION COMPREHENSIVE EST PATIENT CL FITTING ANNUAL CK W/O CHG Advance Directives Directive Yes / No Effective Date File Name No Information Encounters Encounter Description Practice Location Reason(s) For Visit Diagnoses Date Provider Providers Copied on Encounter [facility], [address] [facility], [place], [place], [id number], tel:[phone] [facility] a comprehensive exam (chief complaint) Myopia, bilateral 6 BALWINDER SLOAN. [address] [facility], [address], [place], [address]. tel:[phone] Family History Family Member Type Diagnosis Age At Onset No Information Payers Payer name Insurance type Covered green party ID Authoriza tion(s) [place] [id number] Social History Type Description Quantity Date Captured [...] bilateral - Return in 1 year w asnchez Valle for Complete Exam w/ Contacts. Related to Myopia, bilateral Assessments Type Assessment Date assessment Myopia, bilateral Patient Care Teams Name Effective Dates (start - stop) Status Members No Information
--- OUTSIDE RECORDS SUMMARY | 2025-02-13 10:40 | XMS_ITS | Encounter Summary ---
[facility] Address [address] [place] [address] Care Team Providers Care Night Custodian Name Role Phone Jose Enrique Porras DO Primary Care Provider + Reason for Referral * Procedure/Equipment (Routine) - Authorized Specialty Diagnoses / Procedures Referred By Contac t Referred To Contact Diagnoses Witnessed apneic spells Procedures Sleep Diagnostic Tests: HST Jose Enrique Porras DO [address] [place] [address] Phone: tel: fax: Referral ID Status Reason Start Date Expiration Date V isits Requested Visits Authorized [id number] Authorized 02/13/2025 05/15/2026 1 1 Reason for Visit * Reason Comments MEDICATION THERAPY MANAGEMENT Encounter Details Date Type Department Care Team (Latest Contact Info) Description 02/13/2025 11:40 AM CDT [facility] [address] [facility] [place] [id number] Jose Enrique Porras DO [address] [facility] [place] [id number] Encounter for medication review (Primary Dx); ADHD, predominantly inattentive type (HRC); OLIVIA (generalized anxiety disorder) (HRC); Severe episode of recurrent major depressive disorder, 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); Insomnia, unspecified type; Genital herpes simplex, unspecified site (HRC); 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; Gastroesophageal reflux disease, unspecified whether esophagitis present; Panic attacks (HRC); Witnessed apneic spells Social History Tobacco Use Types Packs/Day Years Used Date Smoking Tobacco: Former Cigarettes Smokeless Tobacco: Never Tobacco Cessation:Counseling Given: Not Answered Alcohol Use Standard Drinks/Week [...] Recorded Sex Assigned at Not on file Legal Sex Male 12:58 PM CDT Gender Identity Not on file Sexual Orientation Not on file documented as of this encounter Progress Notes * Jose Enrique Porras, DO - 02/13/2025 11:40 AM CDT Office Visit Note: HPI: This is a pleasant 29-year-old gentleman who I am seeing today via video visit. This is per his request as he lives in [facility] and I am seeing him here today in my clinic office at [facility]. History of Present Illness Tino Salmon is a 29 year old male who presents for medication management and follow-up. He experiences tiredness, which he attributes to being a new father and managing multiple responsibilities, including part-time work and school. His mood remains stable without antidepressants, having discontinued sertraline three to four months ago due to feeling 'zombified.' No significant mood issues have occurred since stopping the medication and in fact he thinks he can process his emotions better now that the sertraline has been discontinued. He is working well with the therapist. He is currently taking Vyvanse for ADHD, which he finds beneficial for focus and motivation. He adjusts his usage based on his daily schedule, skipping doses on less demanding days. He also uses hydroxyzine as needed for anxiety and requests a refill due to the current supply being outdated. He has a history of sleep disturbances, particularly difficulty waking up in the morning. He has used trazodone occasionally for sleep but finds it causes excessive grogginess. He has taken it only once or twice since his last visit and is open to trying alternative medications for sleep that do not cause morning drowsiness. He has a history of swallowing difficulties and plans to follow up with a specialist for further evaluation. It has been awhile since he has been seen by GI regarding his Barretts esophagus has been he does remained compliant with his medications. Denies any worsening dysphagia or odynophagia. No melena. His has observed episodes of apnea and increased snoring during his sleep. A previous sleep study was inconclusive due to a lead dislodging during the test. He is interested in repeating the study, potentially in a clinical setting, to confirm the diagnosis. He requests refills for Valtrex, famotidine, and esomeprazole, which he uses regularly. Nursing Notes: Ayana Mcgovern LPN 02/13/25 1120 Signed Type of service: Video visit. Patient location was home. Provider location was [facility]. Patient gave verbal consent for telehealth appointment: YES Chief Complaint Patient presents with MEDICATION THERAPY MANAGEMENT Others present during visit: self Vitals: There were no vitals taken for this visit. Tobacco History: Tobacco Use History[1] Allergies: Allergies Allergen Reactions Haldol [Haloperidol] Muscle Aches/Weakness Sulfa Antibiotics Unknown Sulfamethoxazole-Trimethoprim Unknown Trimethoprim Unknown Additional Information: None Problem List[2] Current Outpatient Medications Medication Sig Doxepin HCl 3 MG TABS Take 1 Tablet (3 mg) by mouth at bedtime as needed. esomeprazole (NEXIUM) 40 MG capsule Take 1 Capsule (40 mg) by mouth daily. famotidine (PEPCID) 40 MG tablet Take 1 Tablet (40 mg) by mouth daily at bedtime. hydrOXYzine HCl (ATARAX) 25 MG tablet Take 1 Tablet (25 mg) by mouth three times a day as needed for Anxiety. lisdexamfetamine (VYVANSE) 30 MG capsule Take 1 Capsule (30 mg) by mouth daily for 30 days. 1 of 3 [START ON 03/15/2025] lisdexamfetamine (VYVANSE) 30 MG capsule Take 1 Capsule (30 mg) by mouth daily for 30 days. 2 of 3 Do not start before March 15, 2025. [START ON 04/14/2025] lisdexamfetamine (VYVANSE) 30 MG capsule Take 1 Capsule (30 mg) by mouth daily for 30 days. 3 of 3 Do not start before April 14, 2025. metoclopramide (REGLAN) 10 MG tablet Take 1 Tablet (10 mg) by mouth every 8 hours as needed for Nausea or Vomiting (for nausea or vomiting). SUMAtriptan (IMITREX) 50 MG tablet Take 1 Tablet (50 mg) by mouth as needed for Migraine. at onset of headache; may repeat one time in 2 hours if headache recurs. valACYclovir (VALTREX) 1 g tablet Take 1 Tablet (1,000 mg) by mouth daily. No current facility-administered medications for this visit. Physical Exam: There were no vitals taken for this visit. Affect is slightly blunted, slightly improved from previous conversations. Speech is nonpressured, non tangential. He has good insight to his current scenario. Hygiene appears unremarkable. No visits with results within 1 Week(s) from this visit. Latest known visit with results is: Office Visit on 01/13/2023 Component Date Value Ref Range Status Urine Culture Comment 01/13/2023 Urinalysis results do not meet criteria for urine culture reflex. Final Urine Color 01/13/2023 Colorless Final Urine Clarity 01/13/2023 Clear Clear Final Specific [place], Urine 01/13/2023 1.011 <1.030 Final PH Urine 01/13/2023 7.5 5.0 - 8.0 Final Protein 01/13/2023 Negative Negative, 10 , 20 Final Glucose 01/13/2023 Normal (Negative) Normal (Negative), 30 , 50 Final Ketones 01/13/2023 Negative Negative, Trace Final Urobilinogen 01/13/2023 Normal (Negative) Normal (Negative) Final Bilirubin 01/13/2023 Negative Negative Final Blood, Urine (mg/dL) 01/13/2023 Negative Negative, 0.03 (Trace) Final Nitrite Urine 01/13/2023 Negative Negative Final Leukocyte Esterase 01/13/2023 Negative Negative, 25 (Trace) Final Source 01/13/2023 Clean Catch Final Assessment/Plan Assessment & Plan ADHD, predominantly inattentive type He continues to benefit from Vyvanse for focus and motivation, effectively self- managing by adjusting usage based on daily demands. Continue Vyvanse 30 MG orally daily. Major depressive disorder and generalized anxiety disorder He has been off sertraline for 3-4 months due to feeling 'zombified', with improved mood and anxiety management through therapy and clarisa. No significant withdrawal symptoms. Continues hydroxyzine asneeded for anxiety. Discontinue sertraline from the medication list. Continue hydroxyzine 25 MG orally three times a day as needed for anxiety. Refill hydroxyzine prescription. Insomnia He occasionally uses trazodone due to grogginess and is interested in an alternative medication with less next-day sedation. Low-dose doxepin discussed as a possible alternative. Discussed side effect profile. Discontinue trazodone from the medication list. Prescribe doxepin 3 MG for trial. Gastroesophageal reflux disease (GERD) Swallowing is fine. Plans to follow up with a specialist for further evaluation. Refill esomeprazole 40 MG orally once daily. Refill famotidine 40 MG orally once daily at bedtime. Herpes simplex virus infection Refill valacyclovir 1 g orally once daily. Suspected obstructive sleep apnea Previous home sleep study was inconclusive due to a lead falling off. Reports witnessed apnea by spouse. Plans to repeat home sleep study with updated technology. Order repeat home sleep study. Tino was seen today for medication therapy management. Diagnoses and all orders for this visit: Encounter for medication review ADHD, predominantly inattentive type (HRC) - lisdexamfetamine (VYVANSE) 30 MG capsule; Take 1 Capsule (30 mg) by mouth daily for 30 days. 1 of3 - lisdexamfetamine (VYVANSE) 30 MG capsule; Take 1 Capsule (30 mg) by mouth daily for 30 days. 2 of3 Do not start before March 15, 2025. - lisdexamfetamine (VYVANSE) 30 MG capsule; Take 1 Capsule (30 mg) by mouth daily for 30 days. 3 of3 Do not start before April 14, 2025. OLIVIA (generalized anxiety disorder) (HRC) - hydrOXYzine HCl (ATARAX) 25 MG tablet; Take 1 Tablet (25 mg) by mouth three times a day as neededfor Anxiety. 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 Genital herpes simplex, unspecified site (HRC) - valACYclovir (VALTREX) 1 g tablet; Take 1 Tablet (1,000 mg) by mouth daily. 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 - esomeprazole (NEXIUM) 40 MG capsule; Take 1 Capsule (40 mg) by mouth daily. Gastroesophageal reflux disease, unspecified whether esophagitis present - esomeprazole (NEXIUM) 40 MG capsule; Take 1 Capsule (40 mg) by mouth daily. Panic attacks (HRC) - hydrOXYzine HCl (ATARAX) 25 MG tablet; Take 1 Tablet (25 mg) by mouth three times a day as neededfor Anxiety. Witnessed apneic spells - Sleep Diagnostic Tests: HST; Future This note created using [email or web address] Fluency speech-recognition software and may contain unintended wordsubstitutions DO Susan Wolf................... 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 Patient location was home. Provider location was [facility]. Patient gave verbal consent for telehealth appointment: YES Chief Complaint Patient presents with MEDICATION THERAPY MANAGEMENT Others present during visit: self Vitals: There were no vitals taken for this visit. Tobacco History: Tobacco Use History[1] Allergies: Allergies Allergen Reactions Haldol [Haloperidol] Muscle Aches/Weakness Sulfa Antibiotics Unknown Sulfamethoxazole-Trimethoprim Unknown Trimethoprim Unknown Additional Information: None [1] Social History Tobacco Use Smoking Status Former Current packs/day: 0.50 Types: Cigarettes Smokeless Tobacco Never documented in this encounter Plan of Treatment Scheduled Orders Name Type Priority Associated Diagnoses Orde r Schedule Sleep Diagnostic Tests: HST Sleep Study Routine Witnessed apneic spells 1 Occurrences starting 02/13/2025 documented as of this encounter Visit Diagnoses Diagnosis Encounter for medication review- Primary ADHD, predominantly inattentive type (HRC) Attention deficit disorder with hyperactivity OLIVIA (generalized anxiety disorder) (HRC) Generalized anxiety disorder Severe episode of recurrent major depressive disorder, 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
--- OUTSIDE RECORDS SUMMARY | 2025-02-26 08:58 | XMS_ITS | Continuity of Care Document ---
Author Organization [facility] Address [address] [address] [place] [address] Phone Care Team Providers Care Soil Tester Name Role Phone Salvatore Hopkins MD, Son Almaraz Unavailabl e Allergies, Adverse Reactions, Alerts Substance Reaction Status Criticality HALOPERIDOL LACTATE Active No Infor mation haloperidol Active No Information trimethoprim Unknown Active No Information sulfamethoxazole Unknown Active No Informat ion Sulfa (Sulfonamide Antibiotics) HivesHives Active No Information Medications Medication Instructions Dosage Effective Dates (start - stop) Status Comments sertraline 200 mg capsule take 1 capsule by oral route every day 200 MG - Active Valium 5 mg tablet take 1 tablet by ORA L route as needed prior to procedure. - Active esomeprazole magnesium 40 mg capsule,delayed release take 1 Capsule by Oral route 2 times every day 1 Capsule - Active famotidine 40 mg tablet take 1 tablet by oral route every day at bedtime 40 MG - Active Vyvanse 40 mg capsule take 1 capsule by oral route every day in the morning 40 MG - Active multivitamin tablet take 1 tablet by ORA L route every day 1 tablet - Active Procedures Procedure Date Offic/outpt E&m New Mod-hi Offic/outpt E&m Estab Low-mod Ugi Endo; W/bx 1/mx Level Iv-surg Path Gross/micro 21 Special Stains; Grp I Microorg 21 Immunocytochemistry, Each Antibody Immunohistochemistry, each add''l antibo dy Established Level 4 Office Cons New/estab Mod Routine Serum Collection Bld Ct; Hg/pltlt Ct Auto/compl Comp Metabolic Panel Iron Iron Binding Capacity Advance Directives Directive Yes / No Effective Date File Name No Information Encounters Encounter Description Practice Location Reason(s) For Visit Diagnoses Date Provider Providers Copied on Encounter [facility], [address] [address], [place], [place], [id number], [place] tel:[phone] [facility] No Information 5 Salvatore Cline. [address] [place] [address], [id number], [place]. [phone] Offic/outpt E&m New Mod-hi [facility], [address] [address], [place], [place], [id number], [place] tel:[phone] [facility] GI Symptoms or Concerns (chief complaint) Nausea and vomiting, unspecified vomiting typeEpigastric abdominal painDysphagia, unspecified typeGastro-eso phageal reflux disease with esophagitis, without bleedingBarret t's esophagus without dysplasiaDark stools 4 Jack Law. [address] [place] [address], [id number], [place]. [phone] Mando Ríos MD. tel:[phone] erring Provider: Nila Patterson MD, [address] [place] [address], [place], [address]. tel:[phone] [facility], [address] [address], [place], [place], [id number], [place] tel:[phone] [facility] No Information 4 Salvatore Cline. [address] [place] [address], [id number], [place]. [phone] [facility], [address] [address], [place], [id number], [place] tel:[phone] [facility] No Information No Information Offic/outpt E&m Estab Low-mod [facility], [address] [address], [place], [id number], [place] tel:[phone] [facility] GI Symptoms or Concerns (chief complaint) Gastro-esophag eal reflux disease with esophagitis, without bleedingBarret t's esophagus without dysplasiaHiata l herniaDysphagi a, unspecified type 1 No Information Mando Ríos MD. tel:[phone] erring Provider: Referral Self, USE FOR SELF REFERRALS. [facility], [address] [address], [place], [id number], [place] tel:[phone] [facility] Simpson's esophagus determined by endoscopyEsoph ageal ulcer without bleedingHiatal herniaGastro-e sophageal reflux disease with esophagitis, without bleedingBarret t's esophagus without dysplasia 1 No Information Mando Ríos MD. tel:[phone] erring Provider: Referral Self, USE FOR SELF REFERRALS. Established Level 4 [facility], [address] [address], [place], [id number], [place] tel:[phone] [facility] GI Symptoms or Concerns (chief complaint) Chronic heartburnBarre tt's esophagus without dysplasiaOdyno phagia 1 No Information Mando Ríos MD. tel:[phone] erring Provider: Jose Enrique Fountain, [address] , [place], [address]. tel:[phone] [facility], [address] [address], [place], [id number], [place] tel:[phone] [facility] No Information 1 No Information [facility], [address] [address], [place], [id number], [place] tel:[phone] [facility] No Information Justo Solis. [address] [facility], [facility] [address], [place], [id number], . tel:[phone] Office Cons New/estab Mod [facility] [place], [address] [address], [place], [place], [id number], tel:[phone] [facility] GI Symptoms or Concerns (chief complaint) Ismpson's esophagus without dysplasiaChron ic heartburnDysph agia, unspecified typeFatigue, unspecified type Jul- 9 No Information Referring Provider: Mando Brooks, [address], [place], [address]. tel:[phone] [facility], [address] [address], [place], [place], [id number], [place] tel:[phone] [facility] No Information Justo Solis. [address] [facility], [facility] [address], [place], [id number], [place]. tel:[phone] Referring Provider: Mando Brooks, [address], [place], [address]. tel:[phone] Family History Family Member Type Diagnosis Age At Onset No Information Immunizations Vaccine Date Status Comments Influenza, split virus, trivalent, injectable, contains preservative administered Note: [facility] bi-direct ional interface ; Source: Other Registry Influenza, seasonal, injectable administe red Note: [facility] bi- directional interface ; Source: Other Registry Novel [id number], injectable administered Note: [facility] bi-direct ional interface ; Source: Other Registry Influenza, split virus, trivalent, injectable, preservative free administered Note: [facility] bi-direct ional interface ; Source: Other Registry Influenza, seasonal, injecta ble, preservative free administered Note: [facility] bi-direct ional interface ; Source: Other Registry Influenza, split virus, trivalent, injectable, contains preservative administered Note: [facility] bi-direct ional interface ; Source: Other Registry Influenza, seasonal, injectable administe red Note: [facility] bi- directional interface ; Source: Other Registry Influenza, split virus, trivalent, injectable, contains preservative administered Note: [facility] bi-direct ional interface ; Source: Other Registry Influenza, seasonal, injectable administe red Note: [facility] bi- directional interface ; Source: Other Registry tetanus toxoid, reduced diphtheria toxoid, and acellular pertussis vaccine, adsorbed administered Note: [facility] b i-directional interface ; Source: Other Registry Influenza, split virus, trivalent, injectable, contains preservative administered Note: [facility] bi-direct ional interface ; Source: Other Registry Influenza, seasonal, injectable administe red Note: [facility] bi- directional interface ; Source: Other Registry Influenza, split virus, trivalent, injectable, contains preservative administered Note: [facility] bi-direct ional interface ; Source: Other Registry Influenza, seasonal, injectable administe red Note: [facility] bi- directional interface ; Source: Other Registry Pneumovax 23 administered Note: [facility] bi-d irectional interface ; Source: Other Registry Payers Payer name Insurance type Covered libertarian ID Authoriza tion(s) No Information Social History Type Description Quantity Date Captured Comments Sex Male Smoking Status No Information Chief Complaint And Reason For Visit No Information Reason For Referral Reason For Referral No Information Plan Of Treatment Date Type Action Status Referral Ordered: Ultrasound Abdomen Appointment date/timeframe: First Available ordered Referral Ordered: Xray Esophagus (Esophagram, Barium Swallow Study) Appointment date/timeframe: 10/28/2020 ordered Referral Ordered: Esophageal Motility Study Appointment date/timeframe: 10/28/2020 ordered Referral Ordered: EGD Appointment date/timeframe: -today ordered Referral Ordered: follow-up visit with [facility] 1 month ordered Referral Ordered: Halo 360 Appointment date/timeframe: 09/22/2018 ordered Referral Ordered: Xray Esophagus (Barium Swallow Study) Appointment date/timeframe: 08/29/2018 ordered Appointment Karlo Salmon BOOKED History Of Present Illness Encounter Date Complaint History Of Prese nt Illness GI Symptoms or Concerns This is a 28-year-old male here in consultation at the request of Nila Patterson MD for evaluation related to nausea. He was last seen in clinic by Lawrence Stephen PA-C on 10/11/2020. Please see his note for previous details.Past medical history significant for GERD, Simpson's esophagus, ADHD, bipolar disorder, generalized anxiety disorder, herpes, major depressive disorder, posttraumatic stress disorder, and substance abuse.He has been on pantoprazole 40 mg twice daily in the past for Simpson's esophagus and GERD and was prescribed Nexium 40 mg twice daily at his last clinic visit. He was also recommended in this last clinic visit to continue to take Pepcid at night, complete x-ray of the esophagus, complete esophageal manometry, and follow-up in esophageal clinic for consideration of antireflux surgery prior to proceeding with HALO ablation.In records available to me today patient presented to the emergency department on 01/11/2024 for medication reaction, anxiety, and abdominal pain. He reported to have intermittent vomiting with blood and associated abdominal pain for the past 4 weeks. Blood work, CT, and x-ray completed per ED records. He was noted to be taking Protonix and famotidine daily. He also endorsed blood in the stool at that visit. He is also using medical marijuana. Laboratory evaluation completed on 01/11/2024 included BMP, CBC, LFTs, and lipase which were all normal.History of Present Illness: Today patient reports over the last 4 to 5 months he has been in and out of the ER for episodes of nausea and vomiting. His most recent ER visit was in [place], where he reportedly was vomiting of blood. Last ER records I have available to me were from 01/11/2024.Over the last year or 4 to 5 months he has noticed an increase in his acid reflux. He takes his esomeprazole 40 mg twice daily as well as famotidine 40 mg once daily. He will have nightly symptoms of acid reflux that wakes him up despite waiting multiple hours to go to bed following eating and sleeping with his head of the bed elevated. He will also have daytime episodes of acid reflux about twice weekly. He avoids foods that trigger his acid reflux such as dairy products and spicy foods. He has also reduced his energy drink and soda intake to 2 energy drinks and 2 sodas weekly. He does endorse dysphagia that occurs with food about once a week, denies liquid or pill dysphagia. He will experience episodes of nausea and vomiting every 3 weeks and the episodes will last 1 day to a week. He also experiences almost daily postprandial epigastric pain and will have the pain at nighttime as well. He denies any unintentional weight loss.He currently is having a bowel movement daily or every other day. He does endorse that he will have a dark/black stool once every other week. He denies melena. Describes the stools as [place] type 3 or 4, with occasional harder stools. He will also experience a couple times a week [place] type 5 or 6 stools. He states he feels that his mental health also plays on a role in his symptoms for the last 4 to 5 months. He currently saw his primary care provider and therapist who recommended he increase his Vyvanse to 40 mg daily and sertraline 200 mg once daily. He also uses hydroxyzine as needed for anxiety. He has had a lot of life stressors within the last couple months which he is actively working on with his PCP and therapist.He denies history of abdominal surgeries.His family history is unknown to him.He currently vapes nicotine daily. He also smokes medical marijuana 2-3 times daily. 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 He denies NSAID medication use, will only use Tylenol as needed.Previous gastrointestinal workup:08/08/2020 EGD-Long segment of Simpson's esophagus (7 cm in length), medium hiatal hernia, normal duodenum. Esophageal biopsies at 34 cm and 32 cm revealed specialized Simpson's mucosa, negative for dysplasia. Esophageal biopsies at 30 cm revealed changes consistent with erosive reflux esophagitis and scant columnar mucosa is present. Esophageal biopsies at 36 cm revealed normal gastric cardia mucosa. Repeat EGD recommended in 3 years. GI Symptoms or Concerns Karlo Salmon is a 25-year-old male who presents to follow up from recent testing. The patient has a past medical history significant for ADHD, bipolar disorder, generalized anxiety disorder, herpes, major depressive disorder, posttraumatic stress disorder, and substance abuse. I initially met him in July 2018 when he presented for evaluation of worsening reflux symptoms and Simpson's esophagus. He was taking Dexilant 60 mg daily as well as occasional Carafate. He was still having burning and tightness as well as nocturnal regurgitation.Upper endoscopy was initially done through General Surgeon in [place] in 2017, and this revealed a normal-appearing stomach and duodenum, but there was about 10 cm of circumferential Simpson's, which was biopsied and then he was referred here for ablation. We discussed proceeding with ablation given his increased risk for esophageal cancer with his young age. However, the patient unfortunately never completed this.I met him again e GI Symptoms or Concerns Karlo Salmon is a 24-year-old male who presents for a followup visit. The patient did consent to his visit being held over the computer and was the only person present on the telephone call. The patient has a past medical history significant for ADHD, bipolar disorder, generalized anxiety disorder, genital herpes, major depressive disorder, posttraumatic stress disorder, and substance abuse. I met him in July 2018 when he presented for evaluation of worsening reflux and Smipson's esophagus. He was currently taking Dexilant 60 mg daily as well as occasional Carafate, but he was still having retrosternal burning and tightness as well as nocturnal regurgitation. Upper endoscopy was done through a general surgeon in 2017, which revealed a normal-appearing stomach and duodenum what appeared to be 10 centimeters of circumferential Simpson's esophagus in the distal esophagus. This was biopsied and was reviewed by Dr. Librado Rodríguez and he was referred here for further evaluation. We pl GI Symptoms or Concerns Karlo Salmon is a 22-year-old male who was referred by Dr. Mando Ríos regarding Simpson's esophagus.The patient has a past medical history significant for ADHD, bipolar disorder, generalized anxiety disorder, genital herpes, major depressive disorder, posttraumatic stress disorder, and previous substance abuse.The patient states that he has been having issues with heartburn and regurgitation since he was in middle school. He has tried a number of different medications including omeprazole, pantoprazole, and Prevacid. Currently, he is on Dexilant 60 mg daily. He also takes Carafate occasionally, which he does not find incredibly helpful. He describes retrosternal burning and tightness as well as occasional symptoms at night including a nocturnal regurgitation. He had an upper endoscopy with a general surgeon in September 2017. This revealed a normal-appearing duodenum, stomach and what appeared to be Simpson's esophagitis which has been 10 cm circumferentially from th Functional Status Date Functional Assessmen t No Information Instructions Date Instruction Additional Infor shun It was nice meeting you today, Tino! As we discussed -We will call you to schedule the upper endoscopy for Simpson's surveillance and for further evaluation related to episodes of nausea and vomiting -We will call you to schedule an abdominal ultrasound for reports of epigastric pain following eating as well as episodes of nausea and vomiting-Continue to take esomeprazole 40mg twice daily and famotidine 40mg once daily at bedtime. -Start taking a daily fiber supplement for bowel regularity and consistency. I recommend Benefiber, Citrucel, or FiberCon. You can get these over the counter. -Start taking one capful of MiraLax daily in 8 ounces of any noncarbonated beverage for bowel regularity and consistency -Follow up in esophageal clinic on completion of the upper endoscopy or sooner if questions or concerns arise HOW TO REACH [place] can reach me by sending a message through your patient portal or calling my patient coordinator at [phone] ext. [phone] Related to Nausea and vomiting, unspecified vomiting type Gastroesophageal Reflux Disease Related to Gastro-esophageal reflux disease with esophagitis, without bleeding Gastroesophageal Reflux Disease Related to Chronic heartburn Gastroesophageal Reflux Disease Related to 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 Halo 90, [id number] Related to Crane ett's esophagus without dysplasia Barretts Related to [place] tt's esophagus without dysplasia Assessments Type Assessment Date No Information Patient Care Teams Name Effective Dates (start - stop) Status Members No Information
--- OUTSIDE RECORDS SUMMARY | 2025-02-26 08:58 | XMS_ITS | Continuity of Care Document ---
Author Organization [facility] Address [address] [address] [place] [address] Phone Care Team Providers Care Telecommunications Equipment Installer Name Role Phone Salvatore Hopkins MD, Son [...] Diagnoses Date Provider Providers Copied on Encounter [facility], [address] [address], [place], [place], [id number], [place] tel:[phone] [facility] No Information 5 Salvatore Cline. [address] [place] [address], [id number], [place]. [phone] Offic/outpt E&m New Mod-hi [facility] JOANNA, [address] [address], [place], [place], [id number], [place] tel:[phone] [facility] GI Symptoms or Concerns (chief complaint) Nausea and vomiting, unspecified vomiting typeEpigastric abdominal painDysphagia, unspecified typeGastro-eso phageal reflux disease with esophagitis, without bleedingBarret t's esophagus without dysplasiaDark stools 4 Jack Law. [address] [place] [address], [id number], [place]. [phone] Mando Ríos MD. tel:[phone] erring Provider: Nila Patterson MD, [address] [place] [address], [place], [address]. tel:[phone] [facility] JOANNA, [address] [address], [place], [place], [id number], [place] tel:[phone] [facility] No Information 4 Salvatore Cline. [address] [place] [address], [id number], [place]. [phone] [facility], [address] [address], [place], [id number], [place] tel:[phone] [facility] No Information No Information Offic/outpt E&m Estab Low-mod [facility], [address] [address], [place], [id number], [place] tel:[phone] [facility] GI Symptoms or Concerns (chief complaint) Gastro-esophag eal reflux disease with esophagitis, without bleedingBarret t's esophagus without dysplasiaHiata l herniaDysphagi a, unspecified type 1 No Information Mando Ríos MD. tel:[phone] erring Provider: Referral Self, USE FOR SELF REFERRALS. [facility] Digestive [facility] JOANNA, [address] [address], [place], [id number], [place] tel:[phone] [facility] Simpson's esophagus determined by endoscopyEsoph ageal ulcer without bleedingHiatal herniaGastro-e sophageal reflux disease with esophagitis, without bleedingBarret t's esophagus without dysplasia 1 No Information Mando Ríos MD. tel:[phone] erring Provider: Referral Self, USE FOR SELF REFERRALS. Established Level 4 [facility] JOANNA, [address] [address], [place], [id number], [place] tel:[phone] [facility] GI Symptoms or Concerns (chief complaint) Chronic heartburnBarre tt's esophagus without dysplasiaOdyno phagia 1 No Information Mando Ríos MD. tel:[phone] erring Provider: Jose Enrique Fountain, [address] , [place], [address]. tel:[phone] [facility], [address] [address], [place], [id number], [place] tel:[phone] [facility] No Information 1 No Information [facility], [address] [address], [place], [id number], [place] tel:[phone] [facility] No Information Justo Solis. [address] [facility], [facility] [address], [place], [id number], . tel:[phone] Office Cons New/estab Mod [facility] [place], [address] [address], [place], [place], [id number], tel:[phone] [facility] GI Symptoms or Concerns (chief complaint) 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Chron ic heartburnDysph agia, unspecified typeFatigue, unspecified type Jul- 9 No Information Referring Provider: Mando Brooks, [address], [place], [address]. tel:[phone] [facility] Digestive [facility], [address] [address], [place], [place], [id number], [place] tel:[phone] [facility] No Information Justo Solis. [address] [facility], [facility] [address], [place], [id number], [place]. tel:[phone] Referring Provider: Mando Brooks, [address], [place], [address]. tel:[phone] Family History Family Member Type Diagnosis Age At Onset No Information Immunizations Vaccine Date Status Comments Influenza, split virus, trivalent, injectable, contains preservative administered Note: [facility] bi-direct ional interface ; Source: Other Registry Influenza, seasonal, injectable administe red Note: [facility] bi- directional interface ; Source: Other Registry Novel [id number], injectable administered Note: [facility] bi-direct ional interface [...] Registry Payers Payer name Insurance type Covered democrat ID Authoriza tion(s) No Information Social History [...] His most recent ER visit was in [place], where he reportedly was vomiting of blood. [...] He denies melena. Describes the stools as [place] type 3 or 4, with occasional harder stools. He will also experience a couple times a week [place] type 5 or 6 stools. He states [...] was initially done through General Surgeon in [place] in 2017, and this revealed a normal-appearing [...] presented for evaluation of worsening reflux and Simpson's esophagus. He was currently taking Dexilant 60 [...] biopsied and was reviewed by Dr. Librado Rodríguze and he was referred here for further [...] portal or calling my patient coordinator at [phone] ext. [phone] Related to Nausea and vomiting, unspecified vomiting type Gastroesophageal Reflux Disease Related to Gastro-esophageal reflux disease with esophagitis, without bleeding Gastroesophageal Reflux Disease Related to Chronic heartburn Gastroesophageal Reflux Disease Related to 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 Halo 90, [id number] Related to Crane ett's esophagus without dysplasia Barretts Related to [place]hi tt's esophagus without dysplasia Assessments Type Assessment Date No Information Patient Care Teams Name Effective Dates (start - stop) Status Members No Information
--- OUTSIDE RECORDS SUMMARY | 2025-02-26 17:05 | XMS_ITS | Clinical Summary ---
Author Organization [place] Address [address] [facility] [place] [address] Care Team Providers Care Team Physician Name Role Phone Jose Enrique Porras Primary Care Provider + Allergies Active Allergy Reactions Criticality Noted Date Comments Sulfamethoxazole-Trimethoprim 2021 Sulfa Antibiotics 12/08/2021 Medications amoxicillin-clav ulanate (AUGMENTIN) 875-125 MG tablet Take 1 tablet by mouth 2 times daily 14 tablet 12/09/2021 Active Social History Tobacco Use Types Packs/Day Years Used Date Smoking Tobacco: Never Assessed Adolescent Education Answer Date Record ed Getting School Help Needed Not on file 01/09 Sex and Gender Information Value Date Recorded Sex Assigned at Not on file Legal Sex Male 9:18 PM CDT Gender Identity Not on file Sexual Orientation Not on file Last Filed Vital Signs Vital Sign Reading Time Taken Comments Blood Pressure 122/69 12/13/2021 12:36 AM CDT Pulse 80 12/13/2021 2:34 AM CDT Temperature 36.7 C (98.1 F) 12/13/2021 12:36 AM CDT Respiratory Rate 18 12/13/2021 12:36 AM CDT Oxygen Saturation 99% 12/13/2021 2:34 AM CDT Inhaled Oxygen Concentration - - Weight 74.8 kg (165 lb) 12/08/2021 10:07 PM CDT Height - - Body Mass Index - - Plan of Treatment Not on file Insurance [facility] [address] [place] [address] [employer] Care Teams Team Physician Relationship Specialty Start Date End Date Jose Enrique Porras DO [address] [place] [address] PCP - General 12/09/21
--- OUTSIDE RECORDS SUMMARY | 2025-02-26 17:05 | XMS_ITS | Clinical Summary ---
Author Organization [email or web address] Address [address] [place] [address] Care Team Providers Care Laboratory Apparatus Glass Grinder Name Role Phone Jose Enrique Porras Primary Care Provider + Allergies Active Allergy Reactions Criticality Noted Date Comments Sulfamethoxazole-Trimet hoprim *Unknown 09/11/2017 Haloperidol Myalgia 01/11/2024 Muscle spasms. The Oral form Sulfa (Sulfonamide Antibiotics) *Unknown 07/27/2015 Trimethoprim *Unknown - Follow up needed 08/22/2021 Medications * This document contains information received from the source organization and may not represent a complete record from that organization. valACYclovir (VALTREX) 500 mg tabletIndications: Genital herpes simplex, unspecified site Take 1 tablet by mouth 2 times daily. Times 3 more doses then DC 3 tablet 06/09/19 19 Active albuterol HFA 90 mcg/actuation inhalerIndications :Shortness of breath Inhale 2 Puffs by mouth every 6 hours if needed (as needed.). 1 Inhaler 08/19/19 19 Active Vyvanse 40 mg capsule Take 40 mg by mouth once daily. 08/07/19 21 Active metoclopramide HCl (REGLAN) 10 mg tablet Take 10 mg by mouth every 6 hours if needed. 02/08/20 21 Active famotidine (PEPCID) 40 mg tablet 04/04/20 21 Active magnesium citrate (CITRATE OF MAG)Indications:Co nstipation, unspecified constipation type Take 300 mL by mouth one time if needed for Constipation for up to 1 dose. 295 mL 04/23/19 22 Active OLANzapine (ZYPREXA) 5 mg tabletIndications: Vomiting, unspecified vomiting type, unspecified whether nausea present Take 1 Tablet (5 mg) by mouth 2 times daily if needed (vomiting). 10 Tablet 05/01/19 22 Active ofloxacin 0.3 % ophthalmic (OCUFLOX) 0.3 % ophthalmic solutionIndication s:Acute bacterial conjunctivitis of left eye Place 2 Drops into left eye 4 times daily. 5 mL 08/23/19 22 Active prochlorperazine (COMPAZINE) 10 mg tabletIndications: Nausea and vomiting, unspecified vomiting type Take 1 Tablet (10 mg) by mouth every 6 hours if needed for Nausea/Vomiting. 20 Tablet 12/15/19 23 Active sertraline (ZOLOFT) 50 mg tablet TAKE 1/2 (ONE-HALF) TABLET BY MOUTH FOR 7 DAYS, THEN 1 (ONE) TABLET DAILY THEREAFTER 12/30/19 23 Active esomeprazole (NEXIUM) 40 mg capsule Take 40 mg by mouth. 10/12/19 21 Active hydrOXYzine HCL (ATARAX) 50 mg tablet TAKE 1 TO 2 TABLETS BY MOUTH EVERY 6 HOURS NEEDED FOR ANXIETY 06/01/19 24 Active SUMAtriptan (IMITREX) 50 mg tablet Take 50 mg by mouth. 05/24/19 24 Active traZODone (DESYREL) 50 mg tablet Take 1-2 tabs PO qhs prn insomnia 05/24/19 24 Active hydrocortisone (ANUSOL-HC) 2.5 % rectal creamIndications:H emorrhoids, internal Apply topically to affected area(s) two times daily. 28 g 10/08/19 24 Active metoclopramide HCl (REGLAN) 10 mg tabletIndications: Nausea Take 1 Tablet (10 mg) by mouth every 6 hours if needed for Nausea/Vomiting. 15 Tablet 01/11/20 24 Active ondansetron (ZOFRAN ODT) 4 mg disintegrating tabletIndications: Nausea and vomiting, unspecified vomiting type Place 1 Tablet (4 mg) on the tongue every 8 hours if needed for Nausea/Vomiting. 10 Tablet 05/11/19 25 Active lidocaine (viscous) 2 % liquidIndications: Canker sore,Pharyngitis, unspecified etiology Swish and swallow 15 mL by mouth every 4 hours if needed (sore throat, mouth pain). 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 01/01/2017 Overview (03/29/2017): adderall 25 mg per day PTSD (post-traumatic stress disorder) 01/01/2017 Severe episode of recurrent major depressive disorder, without psychotic features 01/01/2017 Tobacco use disorder 04/01/2016 Hiatal hernia with GERD 04/01/2016 Resolved Problems Problem Noted Date Diagnosed Date Resolved Date Herpes simplex infection of penis 08/27/2017 08/27/2017 Asperger syndrome 07/15/2016 02/25/2018 Insomnia 04/01/2016 02/25/2018 Encounters Date Type Department Care Team Description 01/14/2025 10:08 PM CDT - 01/14/2025 11:10 PM CDT Emergency [facility] [address] [place] [address] Almaz Maria PA Canker sore (Primary Dx); Pharyngitis, unspecified etiology Discharge Disposition: Home Self Care 01/14/2025 Travel from Last 3 Months Immunizations Immunization Administration Dates Next Due Influenza A (H1N1), Inactiva barbara (Age >=3 Years) 04/02/2009 Influenza, IIV3 (Age 6-35 mos) 01/24/2009 Influenza, IIV3 (Age >=3 years) 12/31/19 12,02/02/2008,03/24/2007,2006,03/16/2005 Pneumococcal Poly,23-Valent (Pneumovax) 03/16/2005 Tdap 08/09/2024,12/15/2006 Family History Medical History Relation Name Comments Good Health Father Good Health Mother Relation Name Status Comments Father Mother Social History Tobacco Use Types Packs/Day Years Used Date Smoking Tobacco: Some Days Cigarettes Smokeless Tobacco: Never Tobacco Cessation:Ready to Q uit: Not Asked; Counseling Given: Not Answered Alcohol Use Standard Drinks/Week Comments Yes 0 (1 standard drink = 0.6 oz pur e alcohol) rare PHQ-2 Answer Date Recorded PHQ-2 Score 1 06/18/2018 Interpersonal Safety Answer Date Record ed Are you being hit, kicked, p ushed or yelled at (see row info)? 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 Gender Identity Not on file Sexual Orientation Not on file Obstetrics History Last Filed Vital Signs Vital Sign Reading Time Taken Comments Blood Pressure 125/79 01/14/2025 11:08 PM CDT Pulse 86 01/14/2025 11:08 PM CDT Temperature 36.8 C (98.3 F) 01/14/2025 11:08 PM CDT Respiratory Rate 14 01/14/2025 11:08 PM CDT Oxygen Saturation 96% 01/14/2025 11:08 PM CDT Inhaled Oxygen Concentration - - Weight 88.5 kg (195 lb) 01/14/2025 10:12 PM CDT Height 177.8 cm (5' 10) 01/14/2025 10:12 PM CDT Body Mass Index 27.98 01/14/2025 10:12 PM CDT Plan of Treatment Health Maintenance Due Date Last Done Comments Pneumococcal series for age 6-49 (2 of 2 - PCV) 03/16/2006 03/16/2005 Hepatitis C screening for ag e 18-79 2012 Hepatitis B series for 19+ ( 1 of 3 - 19+ 3-dose series) 2013 BMI (ht and wt on same day) for age 18+ 03/01/2019 03/01/2018, 07/14/2017, 01/01/2017, Additional history exists Depression screening for age 12+ 03/21/2019 03/21/2018, 03/16/2018, 03/01/2018, Additional history exists HPV series for age 9-45 (1 - 3-dose SCDM series) 2021 Influenza Vaccine (#1) 2024 2, 01/24/2009, 02/02/2008, Additional history exists Tetanus booster 08/09/2034 08/09/2024, 12/15/2006 RSV vaccine for adults or (1 - 1-dose 75+ series) 2069 HIV for age 15-65 Completed 08/20/2017 Procedures Procedure Name Priority Date/Time Associated Diagnosis Comments THROAT RAPID STREP ONLY CLINIC STAT 01/14/2025 10:45 PM CDT ANTI HIV 1/2 Routine 08/20/2017 3:50 PM CDT STD exposure from Last 3 Months or Most Recently Relevant to Health Maintenance Results * THROAT RAPID STREP (AGE 18+) (01/14/2025 10:45 PM CDT) THROAT RAPID STREP A ANTIGEN Negative 01/14/2025 10:58 PM CDT [facility] Throat SPECIMEN FROM THROAT / Unknown Non-Blood / Unknown 01/14/2025 10:45 PM CDT 01/14/2025 10:49 PM CDT Almaz MARSHALL MICROBIOLOGY Final Result [facility] [address] [place] [address] * ANTI HIV 1/2 (08/20/2017 3:50 PM CDT) HIV-1/HIV-2 ANTIBODY Non-Reacti ve Non-Reacti ve 2017 12:34 PM CDT [facility] Comment:HIV-1 p24 and HIV-1/ HIV-2 Ab not detected. Blood BLOOD SPECIMEN / Unknown Venipuncture / Unknown 08/20/2017 3:50 PM CDT 08/20/2017 3:50 PM CDT us Lissett Jacobs MD SEND OUTS Final Result [facility] [address] [place] [address], [place] from Last 3 Months or Most Recently Relevant to Health Maintenance Insurance [facility] [address] [place] [id number] [place] [facility] [id number] [facility] [place] [id number] Advance Directives * Full Code (Latest Code Status on File) Date Activated Date Inactivated Comments 05/02/2018 10:11 AM 05/02/2018 2:48 PM * Full Code Date Activated Date Inactivated Comments 02/24/2018 8:37 PM 02/28/2018 3:48 PM Question Answer Comments Code Status Discussion: Per Existing Order * Full Code Date Activated Date Inactivated Comments 10/11/2017 10:30 AM 10/11/2017 2:24 PM Care Teams Laboratory Apparatus Glass Grinder Relationship Specialty Start Date End Date Jose Enrique Porras DO [address] [place] [address] PCP - General Family Practice 10/08/17
--- OUTSIDE RECORDS SUMMARY | 2025-02-26 17:05 | XMS_ITS | Encounter Summary ---
Author Organization [email or web address] Address [address] [place] [address] Care Team Providers Care Product Sales Engineer Name Role Phone Rm Ashley DO Primary Care Provider + Reason for Visit * Reason Comments Refill lisdexamfetamine (VY VANSE) 30 MG capsule Encounter Details Date Type Department Care Team (Late st Contact Info) Description 01/31/[address] [facility] [address] [place] [address] Rm Ashley DO [address] [place] [address] Refill (lisdexamfetamine (VYVANSE) 30 MG capsule) Social History Tobacco Use Types [...] as of this encounter Nursing Notes * Kateingrid Jocelynn Xrwcomm - 01/31/2025 8:18 AM CDT lisdexamfetamine (VYVANSE) 30 MG capsule Medication started: 07/05/2019 Last ordered by RM ASHLEY: 12/21/2024 (41 days ago) QTY: 30, Refills: 0, Sig: take 1 capsule (30 mg) by mouth daily for 30 days. 3 of 3 (unchanged) -> The most recent order on 01/20/2025. -> Medication cannot be delegated. Last qualifying visit: 03/07/2024 (with RM ASHLEY) Next scheduled visit: 02/13/2025 (with RM ASHLEY) [employer] [facility] Embedded Refills, Reference: [id number], 01/31/2025 8:18:22 AM CDT, Pool: [facility] - Primary Care [[id number]] ([id number]) * Jocelynn Muniz - 01/31/2025 8:18 AM CDT No Careplan note found by [employer]. documented in this encounter Plan of Treatment Not on file documented as of this encounter Visit Diagnoses Diagnosis ADHD, predominantly inattentive type (HRC) Attention deficit disorder with hyperactivity documented in this encounter Care Teams Product Sales Engineer Relationship Specialty Start Date End Date Rm Ashley DO [address] [facility] [place] [address] PCP - General 10/08/17 documented as of this encounter
--- OUTSIDE RECORDS SUMMARY | 2025-02-26 17:05 | XMS_ITS | Clinical Summary ---
Author Organization [facility] Address [address] [place] [address] Care Team Providers Care Physical Sciences Instructor Name Role Phone Jose Enrique Porras Primary Care Provider + Source Comments You are receiving this document as you are listed as the primary care provider,follow-up provider, or the patient has been referred to you for consultation.This is in compliance with the Medicare andMedicaid EHR Incentive Program,which states Providers who transition their patient to another setting of careor provider of care or refers their patient to another provider of care shouldprovide summary care record for each transition of care or referral. Care Thread Allergies Active Allergy Reactions Criticality Noted Date Comments Haloperidol Muscle Aches/Weakness 02/08/2024 Sulfa Antibiotics Unknown 07/27/2015 Sulfamethoxazole-Trimethoprim Unknown 2017 Trimethoprim Unknown 08/22/2021 Medications metoclopramide (REGLAN) 10 MG tablet Take 1 Tablet (10 mg) by mouth every 8 hours as needed for Nausea or Vomiting (for nausea or vomiting). 15 Tablet 1 05/24/19 24 Active SUMAtriptan (IMITREX) 50 MG tabletIndication s:Other migraine without status migrainosus, not intractable Take 1 Tablet (50 mg) by mouth as needed for Migraine. at onset of headache; may repeat one time in 2 hours if headache recurs. 9 Tablet 3 03/07/20 24 Active lisdexamfetamine (VYVANSE) 30 MG capsuleIndicatio ns:ADHD, predominantly inattentive type (HRC) Take 1 Capsule (30 mg) by mouth daily for 30 days. 1 of 3 30 Capsule 02/14/20 25 025 Active lisdexamfetamine (VYVANSE) 30 MG capsuleIndicatio ns:ADHD, predominantly inattentive type (HRC) Take 1 Capsule (30 mg) by mouth daily for 30 days. 2 of 3 Do not start before March 15, 2025. 30 Capsule 03/15/20 25 025 Active lisdexamfetamine (VYVANSE) 30 MG capsuleIndicatio ns:ADHD, predominantly inattentive type (HRC) Take 1 Capsule (30 mg) by mouth daily for 30 days. 3 of 3 Do not start before April 14, 2025. 30 Capsule 04/14/20 25 026 Active valACYclovir (VALTREX) 1 g tabletIndication s:Genital herpes simplex, unspecified site (HRC) Take 1 Tablet (1,000 mg) by mouth daily. 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 90 Tablet 3 02/14/20 25 Active esomeprazole (NEXIUM) 40 MG capsuleIndicatio ns: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,Gastro esophageal reflux disease, unspecified whether esophagitis present Take 1 Capsule (40 mg) by mouth daily. 90 Capsule 1 02/14/20 25 Active Doxepin HCl 3 MG TABSIndications: Insomnia, unspecified type Take 1 Tablet (3 mg) by mouth at bedtime as needed. 14 Tablet 1 02/14/20 25 Active hydrOXYzine HCl (ATARAX) 25 MG tabletIndication s:OLIVIA (generalized anxiety disorder) (HRC),Panic attacks (HRC) Take 1 Tablet (25 mg) by mouth three times a day as needed for Anxiety. 30 Tablet 3 02/14/20 25 Active traZODone (DESYREL) 50 MG tabletIndication s:Insomnia, unspecified type Take 1-2 tabs PO qhs prn insomnia 30 Tablet 1 02/05/20 24 025 Discontinued hydrOXYzine HCl (ATARAX) 25 MG tabletIndication s:OLIVIA (generalized anxiety disorder) (HRC),Panic attacks (HRC) Take 1 Tablet (25 mg) by mouth three times a day as needed for Anxiety. 30 Tablet 3 11/22/19 24 025 Discontinued(*M ed change OR same med OR reorder, new dose/directions ) lisdexamfetamine (VYVANSE) 30 MG capsuleIndicatio ns:ADHD, predominantly inattentive type (HRC) Take 1 Capsule (30 mg) by mouth daily for 30 days. 1 of 3 30 Capsule 03/07/20 24 025 Discontinued lisdexamfetamine (VYVANSE) 30 MG capsuleIndicatio ns:ADHD, predominantly inattentive type (HRC) Take 1 Capsule (30 mg) by mouth daily for 30 days. 2 of 3 Do not start before April 06, 2024. 30 Capsule 04/06/20 24 025 Discontinued sertraline (ZOLOFT) 100 MG tabletIndication s:OLIVIA (generalized anxiety disorder) (HRC),Severe episode of recurrent major depressive disorder, 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) Take 2 Tablets (200 mg) by mouth daily. 180 Tablet 1 03/07/20 24 025 Discontinued valACYclovir (VALTREX) 1 g tabletIndication s:Genital herpes simplex, unspecified site (HRC) Take 1 tablet by mouth once daily 90 Tablet 3 05/23/19 25 025 Discontinued(*M ed change OR same med OR reorder, new dose/directions ) famotidine (PEPCID) 40 MG tablet TAKE 1 TABLET BY MOUTH ONCE DAILY AT BEDTIME 90 Tablet 3 05/23/19 25 025 Discontinued(*M ed change OR same med OR reorder, new dose/directions ) esomeprazole (NEXIUM) 40 MG capsuleIndicatio ns: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,Gastro esophageal reflux disease, unspecified whether esophagitis present Take 1 capsule by mouth once daily 90 Capsule 12/20/19 25 025 Discontinued(*M ed change OR same med OR reorder, new dose/directions ) lisdexamfetamine (VYVANSE) 30 MG capsuleIndicatio ns:ADHD, predominantly inattentive type (HRC) Take 1 Capsule (30 mg) by mouth daily for 30 days. 3 of 3 30 Capsule 12/22/19 25 025 Discontinued(*M ed change OR same med OR reorder, new dose/directions ) lisdexamfetamine (VYVANSE) 30 MG capsuleIndicatio ns:ADHD, predominantly inattentive type (HRC) Take 1 Capsule (30 mg) by mouth daily for 30 days. 3 of 3 30 Capsule 02/01/20 25 025 Discontinued Active Problems Problem Noted Date Diagnosed Date [...] Encounters Date Type Department Care Team Description 02/13/2025 11:[address] 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; Gastroesophageal reflux disease, unspecified whether esophagitis present; Panic attacks (HRC); Witnessed apneic spells 01/31/[address] [address] Jose Enrique Porras, DO Refill (lisdexamfetamine (VYVANSE) 30 MG capsule) 12/20/[address] [address] Jose Enrique Porras DO Refill (Vyvanse) 12/18/[address] [address] Jose Enrique Porras DO Refill (esomeprazole (NEXIUM) 40 MG capsule [Pharmacy Med Name: Esomeprazole Magnesium 40 MG Oral Capsule Delayed Release]) from Last 3 Months Immunizations Immunization Administration Dates Next Due Flu Vac (3+ yrs) 12/31/2011, 8,03/24/2007,05/28/2006, Flu Vac (6-35 mo) 01/24/2009 Flu Vac Preserv Free (3+yrs) 01/24/2009 Influenza [id number] 04/02/2009 PPSV23 (Pneumovax) 03/16/2005 Tdap 12/15/2006 Family [...] 85 01/13/2023 1:59 PM CDT Temperature 36.8 C (98.3 F) 01/14/2023 1:33 PM CDT Respiratory Rate 18 01/13/2023 1:59 PM CDT Oxygen Saturation 98% 01/13/2023 1:59 PM CDT Inhaled Oxygen Concentration - - Weight 83.9 kg (185 lb) 01/14/2023 1:33 PM CDT Height 177.8 cm (5' 10) 12/25/2022 10:05 AM CDT Body Mass Index 26.54 12/25/2022 10:05 AM CDT Plan of Treatment Health Maintenance Due Date Last Done Comments Hep C Screening (Preventive Services) 1994 HepB Vaccine (1) 2013 Adult Preventive Visit 04/01/2018 04/01/2016 HPV Vaccine (1 - 3-dose SCDM series) 2021 COVID-19 Vaccine (1 - season) 2024 Influenza Vaccine (#1) 2024 2, 01/24/2009, 01/24/2009, Additional history exists DTaP/Tdap/Td Vaccine (3 - Tdap) 08/09/2034 08/09/2024, 12/15/2006 Zoster/Shingles Vaccine (1 of 2) 2044 Pneumococcal Vaccine Aged Out 03/16/2005 No long er eligible based on patient's age to complete this topic HIV Screening (Preventive Services) Completed 10/08/2020, 08/20/2017, 08/20/2017 HepA Vaccine Aged Out No longer eligi ble based on patient's age to complete this topic Hib Vaccine Aged Out No longer eligi ble based on patient's age to complete this topic IPV (Polio) Vaccine Aged Out No longe r eligible based on patient's age to complete this topic MCV4 Vaccine Aged Out No longer eligi ble based on patient's age to complete this topic Meningococcal B Vaccine Aged Out No l onger eligible based [...] Negative (Non Reactive) 10/09/2020 12:23 AM CDT [facility] Comment:HIV-1 p24 Antigen an d HIV-1/HIV-2 Antibody not detected Blood Venipuncture / Unknown 10/08/2020 5:13 PM CDT 10/08/2020 5:13 PM CDT Emiliano Humphries DO LAB_1 Final Result [facility] [address] [place] [address], [facility] from Last 3 Months or Most Recently Relevant to Health Maintenance Insurance [employer]ICA [employer] Advance Directives * Full Code (Latest Code [...] 8:45 PM 02/28/2018 7:05 AM Care Teams Physical Sciences Instructor Relationship Specialty Start Date End Date Jose Enrique Porras DO [address] [place] [address] PCP - General 10/08/17
[2025-02-26 17:23] VITALS: BP 119/78; PULSE 98; RESP 16; TEMP 37.2; O2SAT 98; BMI 32.0
--- NOTE | 2025-02-26 18:49 | ED.ABDPAIN ---
HPI - Abdominal Pain General Time Seen by Provider: 18:49 Date Seen: 02/26/25 Chief Complaint: Abdominal Pain Stated Complaint: pain in stomach Time Seen by Provider: 02/26/25 18:48 Source: patient Mode of arrival: ambulatory Limitations: no limitations History of Present Illness HPI narrative: 29-year-old male who comes in today with abdominal pain. Patient has noted the last 5 days that he has a painful lump by his belly button. No nausea vomiting, no constipation, no known injury. Related Data Home Medications ?Medication ?Instructions ?Recorded ?Confirmed esomeprazole magnesium 40 mg 40 mg PO DAILY 11/08/22 02/26/25 capsule,delayed release famotidine 40 mg tablet 40 mg PO DAILY 11/08/22 02/26/25 lisdexamfetamine 20 mg capsule 20 mg PO DAILY 11/08/22 02/26/25 (Vyvanse) sumatriptan succinate 50 mg tablet 50 mg PO PRN 11/08/22 02/26/25 prochlorperazine maleate 10 mg 10 mg PO Q6H 12/15/22 02/26/25 tablet hydroxyzine HCl 25 mg tablet 25 mg PO BID PRN 06/01/23 02/26/25 hydroxyzine HCl 50 mg tablet mg PO 06/01/23 06/01/23 sertraline 100 mg tablet 100 mg PO DAILY 06/01/23 02/26/25 trazodone 50 mg tablet 100 mg PO QPM PRN 06/01/23 02/26/25 valacyclovir 500 mg tablet 500 mg PO QDAY 06/01/23 02/26/25 (Valtrex) doxepin 3 mg tablet 3 mg PO QPM PRN 02/26/25 02/26/25 Previous Rx's ?Medication ?Instructions ?Recorded metoclopramide HCl 10 mg tablet 10 mg PO Q6H PRN nausea and 07/30/23 (Reglan) vomiting #30 tabs prochlorperazine maleate 10 mg 10 mg PO TID PRN #10 tabs 01/09/24 tablet (Compazine) sucralfate 100 mg/mL oral 10 ml PO BID PRN #300 mL 01/09/24 suspension (Carafate) haloperidol 5 mg tablet 5 mg PO DAILY #10 tabs 01/10/24 docusate sodium 100 mg capsule 100 mg PO DAILY #14 caps 02/26/25 (Colace) Allergies Allergy/AdvReac Type Severity Reaction Status Date / Time haloperidol (From Haldol) Allergy Intermediate Seizure Verified 02/26/25 17:22 Sulfa (Sulfonamide Allergy Unknown Verified 02/26/25 17:22 Antibiotics) sulfamethoxazole (From Allergy Unknown Verified 02/26/25 17:22 Bactrim) trimethoprim (From Bactrim) Allergy Unknown Verified 02/26/25 17:22 [facility] Social History Smoking Status: Current every day smoker What tobacco products do you use: cigarettes Smoking packs per day: 0.5 Smoking cigarettes per day: 10.0 Years smoked: 10 Smoking pack-years: 5.00 Do you use any of these nicotine containing products: None Second hand tobacco smoke exposure: No How often do you have a drink containing alcohol: never AUDIT-C Alcohol total score: 0 Non-prescribed substance use: marijuana (any form) service: No Exam Narrative: Exam Narrative: General: Well-developed and well-nourished, no acute distress Head: Atraumatic and normocephalic Eyes: Pupils are equal reactive, extraocular motions intact, conjunctiva clear ENT: External nose and ears are normal, posterior pharynx without erythema or exudate Neck: No midline cervical tenderness, full spontaneous range of motion the neck, trachea midline, no adenopathy Heart: Regular rate and rhythm no murmurs or thrills Lungs: Clear to auscultation bilaterally without wheezes or crackles Abdomen: Soft, nontender, nondistended. Just superior to the umbilicus there is a 2 cm firm tender subcutaneous nodule, no palpable hernia defect, no redness, induration, or warmth Musculoskeletal: No tenderness, deformity, or edema Neurologic: Awake, alert, and oriented x3, no gross focal neurologic deficits, cranial nerves intact as tested Psych: Mood and affect are appropriate Skin: No rashes Const: Vital Signs, click to edit/add: Vital Signs - 24 hr 02/26/25 17:23 Temperature 99.0 F Pulse Rate [Pulse Oximeter] 98 Respiratory Rate 16 Blood Pressure [Ri ght Upper Arm] 119/78 Pulse Oximetry 98 Oxygen Delivery Me thod Room Air Course Course ED Course: Additional records reviewed: prior emergency department visit from 12/2023 when patient was seen a couple of times with vomiting upper abdominal pain. Additional history from: Care impacted by: Hiatal hernia with reflux, PTSD, tobacco use Testing considered but not performed: See ED course patient seen and examined, presents today with a tender lump by his belly button these nodes for 5 days. He says this getting bigger. On exam he does have a tender 2 cm nodule in the fat and subcutaneous tissue. This is mobile, there does not seem to be an underlying hernia defect. Consider enlarged lymph node, umbilical cyst also possible, ventral hernia possible but less likely. CT ordered to further evaluate. No overlying redness or warmth to suggest acute infectious process. Reevaluation(s) Time of Reevaluation #1: 20:02 Reevaluation #1: CT abdomen and pelvis independently interpreted by me does demonstrate a fat containing umbilical hernia with some mild surrounding inflammatory changes. Patient is stable for discharge with outpatient follow-up with general surgery. Time of Reevaluation #2: 20:42 Reevaluation #2: Care discussed with Dr. Lux, general surgery. who recommends to attempt reduction again in the emergency department and outpatient follow-up. Manual reduction of decrease in size of hernia. Discussed follow-up and stable for discharge. Vital Signs Vital signs: Initial Vital Signs Temperature 99.0 F 02/26/25 17:23 Temperature Source Temporal Artery Scan 02/26/25 17:23 Pulse Rate 98 02/26/25 17:23 Respiratory Rate 16 02/26/25 17:23 Blood Pressure 119/78 02/26/25 17:23 Blood Pressure Mean 91 02/26/25 17:23 Pulse Oximetry 98 02/26/25 17:23 Oxygen Delivery Method Room Air 02/26/25 17:23 Vital Signs Temperature 99.0 F 02/26/25 17:23 Pulse Rate 98 02/26/25 17:23 Respiratory Rate 16 02/26/25 17:23 Blood Pressure 119/78 02/26/25 17:23 Pulse Oximetry 98 02/26/25 17:23 Oxygen Delivery Method Room Air 02/26/25 17:23 Temperature 99.0 F 02/26/25 17:23 Pulse Rate 98 02/26/25 17:23 Respiratory Rate 16 02/26/25 17:23 Blood Pressure 119/78 02/26/25 17:23 Pulse Oximetry 98 02/26/25 17:23 Oxygen Delivery Method Room Air 02/26/25 17:23 Discharge Plan Discharge Clinical Impression: Hernia, umbilical Patient Disposition: Home, Self-Care Condition: Stable Instructions: Umbilical Hernia (ED) Additional Instructions: Call General Surgery Clinic to arrange a follow-up visit [phone] ([place]) or [phone] ([place] on Wednesday) Activity Level: No strenuous activity Discharge Diet: Regular Prescriptions: New docusate sodium [Colace] 100 mg capsule 100 mg PO DAILY Qty: 14 0RF No Action prochlorperazine maleate 10 mg tablet 10 mg PO Q6H valacyclovir [Valtrex] 500 mg tablet 500 mg PO QDAY hydroxyzine HCl 25 mg tablet 25 mg PO BID PRN hydroxyzine HCl 50 mg tablet PO trazodone 50 mg tablet 100 mg PO QPM PRN sertraline 100 mg tablet 100 mg PO DAILY lisdexamfetamine [Vyvanse] 20 mg capsule 20 mg PO DAILY famotidine 40 mg tablet 40 mg PO DAILY esomeprazole magnesium 40 mg capsule,delayed release(DR/EC) 40 mg PO DAILY sumatriptan succinate 50 mg tablet 50 mg PO PRN metoclopramide HCl [Reglan] 10 mg tablet 10 mg PO Q6H PRN (Reason: nausea and vomiting) Qty: 30 0RF sucralfate [Carafate] 100 mg/mL suspension 10 ml PO BID PRNQty: 300 0RF prochlorperazine maleate [Compazine] 10 mg tablet 10 mg PO TID PRNQty: 10 0RF haloperidol 5 mg tablet 5 mg PO DAILY Qty: 10 2RF doxepin 3 mg tablet 3 mg PO QPM PRN Follow Up/Referrals: Provider,Not a Local [Primary Care Provider, Family Practice] Stand Alone Forms: Work/School Release, [facility] Info Instructions
--- NOTE | 2025-02-26 19:38 | CRLHL7_ITS ---
For Patients: As a result of the Century Cures Act, medical imaging exams and procedure reports are released immediately into your electronic medical record. You may view this report before your referring provider. If you have questions, please contact your health care provider. INDICATION: Periumbilical mass. TECHNIQUE: CT abdomen and pelvis without contrast. COMPARISON: CT abdomen pelvis with contrast January 09, 2024. FINDINGS: Lower chest: Unremarkable. Liver: Unremarkable. Gallbladder and bile ducts: Unremarkable. Pancreas: Unremarkable. Spleen: Unremarkable. Adrenal glands: Unremarkable. Kidneys: Bilateral nonobstructing renal calculi with the largest seen in the left kidney at the lower pole measuring up to 6 millimeters. No hydronephrosis. GI tract: Few scattered colonic diverticuli. Normal appendix. Vasculature: Abdominal aorta is normal in caliber. Lymph nodes: No lymphadenopathy. Peritoneum/Abdominal Wall: Left fat containing inguinal hernia. Fat containing periumbilical hernia (superior to the umbilicus) with surrounding inflammatory fat stranding. The hernia measures approximately 3.4 x 3.0 centimeters. Pelvis: Unremarkable. Bones: No acute findings. IMPRESSION: Fat containing periumbilical hernia with surrounding inflammatory changes. Left fat containing inguinal hernia. Bilateral nonobstructive renal calculi. Please note that all CT scans at this facility use dose modulation, iterative reconstruction, and/or weight-based dosing when appropriate to reduce radiation dose to as low as reasonably achievable. Dictated by Robi Lechuga MD @ 02/26/2025 8:36:30 PM (Electronically Signed)
== END 2025-02-26 21:05 | disposition home or self-care (01) ==
PROVIDERS: Emergency Provider Family Medicine
DX: K42.9 Umbilical hernia without obstruction or gangrene (principal)
CPT/HCPCS: 74176; 99284

== ENCOUNTER 2025-03-01 11:13 | Outpatient (CLI) | payer MEDICAID, SELFPAY | END 2025-03-01 11:14 | disposition home or self-care (01) | PROVIDERS: PCP Family Medicine; Visit Provider Family Medicine | DX: Z01.818 Encounter for other preprocedural examination (principal) | CPT/HCPCS: 80048; 85025 ==

== ENCOUNTER 2025-03-02 08:36 | Day surgery (SDC) | payer MEDICAID, SELFPAY ==
[2025-03-02] VITALS (19 sets, daily range): BP systolic 103–144; BP diastolic 60–81; PULSE 51–83; RESP 14–20; TEMP 36.4–37.1; O2SAT 94–100; BMI 34.0
[2025-03-02] MEDS: LACTATED RINGERS 1000 ML 1,000 ML 100 ML IV (08:30)
[2025-03-02] MEDS: SODIUM CHLORIDE 0.9 % (FLUSH) 10 ML SYRINGE IVF (09:15)
--- NOTE | 2025-03-02 09:41 | W.PM.H&PU ---
History & Physical Update History & Physical Update H&P Reviewed and patient assessed: No changes noted
[2025-03-02] MEDS: BUPIVACAINE 0.25% 30 ML INJECTION (10:55)
--- NOTE | 2025-03-02 11:03 | PM.GSPRC ---
Operative Note Date of procedure: 03/02/25 Pre-op diagnosis: Umbilical hernia, incarcerated preperitoneal fat Post-op diagnosis: umbilical hernia and epigastric hernia, both with incarcerated preperitoneal fat Type of Procedure: Open umbilical hernia repair and epigastric hernia repair, placement of mesh Indications: Patient is a 29-year-old male who presented to surgery clinic with a symptomatic umbilical hernia. Please see consultation note regarding full discussion of different treatment options. Risks and benefits of operative intervention were discussed at length with the patient. Risks included but was not limited to: Bleeding, infection, risk of damage to surrounding structures, possible need for additional procedures and postoperative complications such as pneumonia, pulmonary emboli or [place]. All questions and concerns were addressed with the patient agreeing to proceed. Procedure Description: After discussing the risks and benefits of the procedure, the patient signed informed consent.? The operative site was marked and the patient was brought to the operating room and placed on the operating table in supine position.? Care was taken to pad the patient's pressure points.?? The patient was then intubated by anesthesia.?? The operative site was then prepped and draped in the usual sterile fashion.? A time-out was then performed. A curvilinear incision was made at the umbilicus. Dissection was carried down into the subcutaneous tissue using cautery. The hernia sac was encountered, with a large amount of incarcerated fat. This was unable to be reduced. The hernia sac was opened and a small amount of inflamed fat removed. This was passed off the table for disposal. Once the fat was reduced dissection was carried down to the fascia, which was circumferentially cleared. There was evidence of a large epigastric hernia measuring 3 cm and just inferior to that a small umbilical hernia measuring 1 cm. The fascial bridge of tissue connecting the 2 defects was transected to create a single 4 cm defect. A preperitoneal pocket was created using a combination of blunt dissection and cautery. Hemostasis appeared adequate. Once the posterior fascia was clear, a piece of large Ventralex ST hernia mesh was placed in the preperitoneal space with care to ensure that it laid flat. This was secured into place using 2 0 PDS interrupted sutures. The tails were then trimmed and the fascial opening was closed with a running 0 Vicryl. Local anesthetic was injected into the fascia, skin and subcutaneous tissues. The umbilicus was reapproximated to the fascia. The skin was then closed with running absorbable suture. A sterile dressing was then applied. ? The patient was then woken and transported to the recovery area in stable condition. ? The patient tolerated the procedure well. Findings: epigastric and umbilical hernia, both with incarcerated preperitoneal fat. Reduced and fixed with a large [address] hernia mesh. Implants: [address] mesh Anesthesia: GETA Surgeon: Keisha Lux MD Estimated blood loss (mL): 10 Condition: stable Disposition: PACU
--- NOTE | 2025-03-02 11:30 | P.ANES_ITS ---
Anesthesia Charges Start Date/Time Anesthesia Start Date: 03/02/25 Anesthesia Start Time: 09:51 Stop Date/Time Anesthesia Stop Date: 03/02/25 Anesthesia Stop Time: 11:27 Coding CPT Codes CPT Codes: ANESTH REPAIR OF HERNIA - 14722 ([id number]) P2 - PATIENT W/MILD SYST DISEASE, QK - GREEN MEAT PACKER 2-4 CNCRNT ANES PROC, QX - APPLIANCE TESTER SVC W/ MD MED DIRECTION
--- NOTE | 2025-03-02 11:30 | W.ANESCHARGE ---
Anesthesia Charges Start Date/Time Anesthesia Start Date: 03/02/25 Anesthesia Start Time: 09:51 Stop Date/Time Anesthesia Stop Date: 03/02/25 Anesthesia Stop Time: 11:27 Coding CPT Codes CPT Codes: ANESTH REPAIR OF HERNIA - 65500 ([id number]) P2 - PATIENT W/MILD SYST DISEASE, QK - SKIN TANNER 2-4 CNCRNT ANES PROC, QX - CONE SEWER SVC W/ MD MED DIRECTION
--- NOTE | 2025-03-02 11:50 | P.ANES_ITS ---
Anesthesia Charges Start Date/Time Anesthesia Start Date: 03/02/25 Anesthesia Start Time: 09:51 Stop Date/Time Anesthesia Stop Date: 03/02/25 Anesthesia Stop Time: 11:27 Coding CPT Codes CPT Codes: ANESTH REPAIR OF HERNIA - 95348 ([id number]) QK - DIGITAL HARDWARE DESIGN ENGINEER 2-4 CNCRNT ANES PROC, QX - GARMENT MENDER SVC W/ MD MED DIRECTION, P2 - PATIENT W/MILD SYST DISEASE
--- NOTE | 2025-03-02 11:50 | W.ANESCHARGE ---
Anesthesia Charges Start Date/Time Anesthesia Start Date: 03/02/25 Anesthesia Start Time: 09:51 Stop Date/Time Anesthesia Stop Date: 03/02/25 Anesthesia Stop Time: 11:27 Coding CPT Codes CPT Codes: ANESTH REPAIR OF HERNIA - 88553 ([id number]) QK - CAR BLOCKER 2-4 CNCRNT ANES PROC, QX - COMMUNICATIONS SYSTEMS ENGINEER SVC W/ MD MED DIRECTION, P2 - PATIENT W/MILD SYST DISEASE
[2025-03-02] MEDS: HYDROCODONE-ACETAMIN 5-325 MG 1 TAB PO (13:26)
== END 2025-03-02 14:14 | disposition home or self-care (01) ==
PROVIDERS: PCP Family Medicine; Visit Provider Surgery
PROC: (CPT 49594; principal; 2025-03-02 10:00)
DX: K42.0 Umbilical hernia with obstruction, without gangrene (principal); K43.6 Other and unspecified ventral hernia with obstruction, without gangrene
CPT/HCPCS: 49594; 00830; 00832; A4467; A9270; C1781; J0330; J0665; J0690; J1100; J1171; J1885; J2250; J2405; J2704; J2710; J3010; J7120